=== PATIENT | male | born 1935 | race Caucasian/White ===

== ENCOUNTER 2016-06-04 21:40 | Emergency (ER) | payer MEDICARE, OTHER ==
[2016-06-04 21:46] VITALS: BP 130/60
[2016-06-04] MEDS ORDERED: Levofloxacin 750 MG IVPREMIX(* 750 MG/150 ML BAG IVPB ONE (22:57)
--- NOTE | 2016-06-04 22:57 | RAD ---
INDICATION: Worsening bronchitis. Denies fever. COMPARISON: June 14, 2015 TECHNIQUE: Dual energy PA and routine lateral views of the chest were obtained. REPORT: Airspace consolidation in the RIGHT lung most confluent at the RIGHT upper lobe approximating the minor fissure and at the RIGHT lung base. Additional airspace consolidation at the LEFT lung base. Trace fluid in the RIGHT major and minor fissures. Negative for pneumothorax. Median sternotomy wires. RIGHT ventricular level pacemaker lead. Cardiomegaly. Prominent mildly ill-defined central pulmonary vasculature. IMPRESSION: The constellation of findings is most concerning for RIGHT greater than LEFT pulmonary inflammatory infiltrates as well as pulmonary vascular congestion and interstitial edema. Alternatively if the patient was lying RIGHT lateral decubitus the findings could be entirely attributable to asymmetric pulmonary edema.
[2016-06-04 23:54] LABS: Hematocrit 32 % (42-52); Hemoglobin 10.5 g/dl (14.0-18.0); Mean Corpuscular HGB Conc 33 g/dl (31-36); Mean Corpuscular Hemoglobin 29 pg (27-31); Mean Corpuscular Volume 89 fL (80-94); Mean Platelet Volume 8 um3 (7.4-10.4); Red Cell Distribution Width 15 % (10.5-15); White Blood Count 7.2 10^3/ul (3.5-10.8)
[2016-06-05 00:10] LABS: Albumin 2.6 g/dL (3.2-5.2); BUN/Creatinine Ratio 23.4 (8-20); Calcium 8.2 mg/dL (8.6-10.3); EGFR African American 69.2 (>60); EGFR Non-African American 53.8 (>60); Globulin 3.9 g/dL (2-4); Potassium 4.8 mmol/L (3.5-5.0); Total Bilirubin 0.4 mg/dL (0.2-1.0); Total Protein 6.5 g/dL (6.4-8.9)
[2016-06-05 00:12] LABS: Troponin I 0.01 ng/mL (<0.04)
--- NOTE | 2016-06-05 00:28 | ED ---
Bautista Steen Adam, scribed for Oscar Almazan MD on 06/04/16 at 2222 . Respiratory - HPI Summary HPI Summary: Pt is an 80 year old male presenting with a hacking cough producing yellow sputum. He began experiencing SOB approximately 6 weeks ago which is worse with exertion such as walking up stairs. Since then he has developed the cough as well, so he had blood work done last week. He states that Dr. Clinton was concerned about a high sedimentation rate and Dr. Kerr advised him to come to the ED if his breathing did not improve. Pt's also states that his skin became darker red than usual several days ago and has since turned paler white than usual. Pt denies any fever or chills. PMHx includes ICD, CAD, HTN, mitral valve replacement, BPH, stomach ulcer repair. Pt quit smoking 26 years ago after smoking for 30+ years. - History of Current Complaint Chief Complaint: EDUpperRespComplaint Stated Complaint: UPPER RESPIRATORY COMPLAINT Time Seen by Provider: 06/04/16 22:10 Hx Obtained From: Patient Onset/Duration: Gradual Onset, Lasting Weeks, Still Present Timing: Constant Initial Severity: Moderate Current Severity: Moderate Pain Intensity: 0 Character: Cough (Productive) Sputum Amount: Moderate Sputum Color: Yellow Aggravating Factor(s): Exertion Alleviating Factor(s): Nothing Associated Signs and Symptoms: SOB - Allergy/Home Medications Allergies/Adverse Reactions: Allergies Allergy/AdvReac Type Severity Reaction Status Date / Time No Known Allergies Allergy Verified 07/22/15 11:38 PMH/Surg Hx/FS Hx/Imm Hx Endocrine/Hematology History: Denies: Hx Diabetes, Hx Systemic Lupus Erythematosus Cardiovascular History: Reports: Hx Auto Implanted Cardiovert Defib, Hx Coronary Artery Disease, Hx Hypertension, Hx Pacemaker/ICD, Hx Valvular Heart Disease - mitral valve replacement, Other Cardiovascular Problems/Disorders - mitral regurgitation Denies: Hx Congestive Heart Failure Respiratory History: Reports: Other Respiratory Problems/Disorders - FUSO- BACTERIUM INFECTION-3 YEARS AGO- [place] BY DR. RODRÍGUEZ GI History: Reports: Hx Ulcer, Other GI Disorders - 1974 stomach repair, currently acid reflux History: Reports: Hx Benign Prostatic Hyperplasia, Other Problems/ Disorders - Hx BPH Denies: Hx Dialysis, Hx Renal Disease Musculoskeletal History: Reports: Hx Arthritis, Hx Back Problems, Other Musculoskeletal History - spinal stenosis Denies: Hx Rheumatoid Arthritis Sensory History: Reports: Hx Cataracts - BILATERAL, Hx Contacts or Glasses Denies: Hx Hearing Aid Opthamlomology History: Reports: Hx Cataracts - BILATERAL, Hx Contacts or Glasses Neurological History: Denies: Hx Headaches, Hx Transient Ischemic Attacks (TIA) Psychiatric History: Denies: Hx Panic Disorder - Cancer History Hx Chemotherapy: No - Surgical History Surgery Procedure, Year, and Place: DEFIBRILATOR, MYTRAL VALVE REPAIR, STOMACH ULCER REPAIR, BILAT SHOULDER REPAIR Hx Anesthesia Reactions: No Infectious Disease History: No Infectious Disease History: Denies: Hx Clostridium Difficile, Traveled Outside the [place] in Last 30 Days - Family History Known Family History: Positive: Other - Negative malignant hyperthermia, negative anesthesia reaction - Social History Occupation: Retired Lives: With Family Alcohol Use: Rare 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 Hx Substance Use: No Substance Use Type: Reports: None Substance Use Comment - Amount & Last Used: SINCE 1987 Hx Tobacco Use: Yes Smoking Status (MU): Former Smoker Type: Cigarettes Amount Used/How Often: quit 26 years ago Length of Time of Smoking/Using Tobacco: 30+ years Have You Smoked in the Last Year: No Review of Systems Negative: Fever, Chills Positive: Shortness Of Breath, Cough Skin: Other Positive: Other - Pale All Other Systems Reviewed And Are Negative: Yes Physical Exam Triage Information Reviewed: Yes Vital Signs On Initial Exam: Initial Vitals Temp Pulse Resp BP Pulse Ox 98.9 F 72 18 130/60 91 06/04/16 21:42 06/04/16 21:42 06/04/16 21:42 06/04/16 21:42 06/04/16 21:42 Vital Signs Reviewed: Yes Appearance: Positive: Well-Appearing, No Pain Distress Skin: Positive: Warm, Skin Color Reflects Adequate Perfusion, Dry Head/Face: Positive: Normal Head/Face Inspection Eyes: Positive: Normal ENT: Positive: Normal ENT inspection Neck: Positive: Supple, Nontender Respiratory/Lung Sounds: Positive: Rales - Crackles, right worse than left Cardiovascular: Positive: RRR Abdomen Description: Positive: Nontender, Soft Bowel Sounds: Positive: Present Musculoskeletal: Positive: Normal Neurological: Positive: Normal Psychiatric: Positive: Normal, Affect/Mood Appropriate Diagnostics - Vital Signs Vital Signs Temp Pulse Resp BP Pulse Ox 06/04/16 21:42 98.9 F 72 18 130/60 91 - Laboratory Lab Results: Lab Results 06/04/16 06/04/16 06/04/16 Range/Units 23:30 23:30 23:30 WBC 7.2 (3.5-10.8) 10^3/ul RBC 3.60 L (4.0-5.4) 10^6/ul Hgb 10.5 L (14.0-18.0) g/dl Hct 32 L (42-52) % MCV 89 (80-94) fL MCH 29 (27-31) pg MCHC 33 (31-36) g/dl RDW 15 (10.5-15) % Plt Count 255 (150-450) 10^3/ul MPV 8 (7.4-10.4) um3 Neut % (Auto) 79.2 (38-83) % Lymph % (Auto) 10.6 L (25-47) % [place] % (Auto) 6.6 (1-9) % Eos % (Auto) 2.5 (0-6) % Baso % (Auto) 1.1 (0-2) % Absolute Neuts (auto) 5.7 (1.5-7.7) 10^3/ul Absolute Lymphs (auto) 0.8 L (1.0-4.8) 10^3/ul Absolute Monos (auto) 0.5 (0-0.8) 10^3/ul Absolute Eos (auto) 0.2 (0-0.6) 10^3/ul Absolute Basos (auto) 0.1 (0-0.2) 10^3/ul Absolute Nucleated RBC 0 10^3/ul Nucleated RBC % 0 Sodium 135 (133-145) mmol/L Potassium 4.8 (3.5-5.0) mmol/L Chloride 104 (101-111) mmol/L Carbon Dioxide 26 (22-32) mmol/L Anion Gap 5 (2-11) mmol/L BUN 30 H (6-24) mg/dL Creatinine 1.28 H (0.67-1.17) mg/dL Est GFR ( Amer) 69.2 (>60) Est GFR (Non-Af Amer) 53.8 (>60) BUN/Creatinine Ratio 23.4 H (8-20) Glucose 99 (70-100) mg/dL Lactic Acid 0.8 (0.5-2.0) mmol/L Calcium 8.2 L (8.6-10.3) mg/dL Total Bilirubin 0.40 (0.2-1.0) mg/dL AST 53 H (13-39) U/L ALT 45 (7-52) U/L Alkaline Phosphatase 56 (34-104) U/L Troponin I 0.01 (<0.04) ng/mL B-Natriuretic Peptide ( - 100) pg/mL Total Protein 6.5 (6.4-8.9) g/dL Albumin 2.6 L (3.2-5.2) g/dL Globulin 3.9 (2-4) g/dL Albumin/Globulin Ratio 0.7 L (1-3) 06/04/16 Range/Units 23:30 WBC (3.5-10.8) 10^3/ul RBC (4.0-5.4) 10^6/ul Hgb (14.0-18.0) g/dl Hct (42-52) % MCV (80-94) fL MCH (27-31) pg MCHC (31-36) g/dl RDW (10.5-15) % Plt Count (150-450) 10^3/ul MPV (7.4-10.4) um3 Neut % (Auto) (38-83) % Lymph % (Auto) (25-47) % [place] % (Auto) (1-9) % Eos % (Auto) (0-6) % Baso % (Auto) (0-2) % Absolute Neuts (auto) (1.5-7.7) 10^3/ul Absolute Lymphs (auto) (1.0-4.8) 10^3/ul Absolute Monos (auto) (0-0.8) 10^3/ul Absolute Eos (auto) (0-0.6) 10^3/ul Absolute Basos (auto) (0-0.2) 10^3/ul Absolute Nucleated RBC 10^3/ul Nucleated RBC % Sodium (133-145) mmol/L Potassium (3.5-5.0) mmol/L Chloride (101-111) mmol/L Carbon Dioxide (22-32) mmol/L Anion Gap (2-11) mmol/L BUN (6-24) mg/dL Creatinine (0.67-1.17) mg/dL Est GFR ( Amer) (>60) Est GFR (Non-Af Amer) (>60) BUN/Creatinine Ratio (8-20) Glucose (70-100) mg/dL Lactic Acid (0.5-2.0) mmol/L Calcium (8.6-10.3) mg/dL Total Bilirubin (0.2-1.0) mg/dL AST (13-39) U/L ALT (7-52) U/L Alkaline Phosphatase (34-104) U/L Troponin I (<0.04) ng/mL B-Natriuretic Peptide 116 H ( - 100) pg/mL Total Protein (6.4-8.9) g/dL Albumin (3.2-5.2) g/dL Globulin (2-4) g/dL Albumin/Globulin Ratio (1-3) Result Diagrams: 06/04/16 23:30 06/04/16 23:30 Lab Statement: Any lab studies that have been ordered have been reviewed, and results considered in the medical decision making process. - Radiology CXR Radiology Interpretation Completed By: Radiologist - IMPRESSION: The constellation of findings is most concerning for RIGHT greater than LEFT pulmonary inflammatory infiltrates as well as pulmonary vascular congestion and interstitial edema. Alternatively if the patient was lying RIGHT lateral decubitus the findings could be entirely attributable to asymmetric pulmonary edema. Disposition - Course Course Of Treatment: He presented with subjective SOB and reasonably good vitals. He was found to have an expensive right sided pneumonia and possibly some mild pulm. edema. He wants to try treating this as an outpatient and will return if his breathing worsens. - Diagnoses Provider Diagnoses: Pneumonia Discharge - Discharge Plan Condition: Stable Disposition: HOME Prescriptions: Levofloxacin TAB* [Levaquin TAB*] 750 mg PO DAILY #9 tab Patient Education Materials: Pneumonia (ED) Referrals: Terry Kerr MD [Primary Care Provider] - Additional Instructions: Follow up with Dr. Kerr. The documentation as recorded by the Bautista kamara Adam accurately reflects the service I personally performed and the decisions made by , Oscar Almazan MD.
== END 2016-06-05 00:41 | disposition home or self-care (01) ==
LOC: ED 21:40
DX: J18.9 Pneumonia, unspecified organism (principal); R05 Cough; Z86.79 Personal history of other diseases of the circulatory system; Z87.891 Personal history of nicotine dependence; R06.02 Shortness of breath
CPT/HCPCS: 36415; 71020; 80053; 83605; 83880; 84484; 85025; 87040; 93005; 96365; 99282

== ENCOUNTER 2016-06-07 12:22 | Observation (INO) | payer MEDICARE, OTHER ==
[2016-06-07] MEDS ORDERED: Azithromycin IV(*) 500 MG in NS 0.9% 250 ML* 250 ML IVPB ONE (14:20)
[2016-06-07] MEDS ORDERED: cefTRIAXone(*) 1 GM in NS 0.9% 50 ML* 50 ML IVPB ONE (14:20)
--- NOTE | 2016-06-07 14:22 | ED ---
Nakul Steen Karl, scribed for Peter Gan MD on 06/07/16 at 1343 . Shortness of Breath - HPI Summary HPI Summary: Pt is an 80 y/o male that presents to the ED c/o SOB since 05/26/16. Pt was seen at the ED for the same symptoms 06/04/16 and was dx with PNA then was sent home with Levaquin but he stated his symptoms are not improving. Pt exhibited a productive cough while in the room. Pt is on Warfarin. Pt denied CP and fever. Hx: PNA. - History of Current Complaint Chief Complaint: EDShortnessOfBreath Time Seen by Provider: 06/07/16 12:24 Hx Obtained From: Patient Onset/Duration: Gradual Onset, Lasting Days - 3, Still Present Timing: Constant Current Severity: Mild Alleviating Factors: Nothing Associated Signs & Symptoms: Cough (Productive) - Allergy/Home Medications Allergies/Adverse Reactions: Allergies Allergy/AdvReac Type Severity Reaction Status Date / Time No Known Allergies Allergy Verified 06/07/16 12:29 PMH/Surg Hx/FS Hx/Imm Hx Endocrine/Hematology History: Denies: Hx Diabetes, Hx Systemic Lupus Erythematosus Cardiovascular History: Reports: Hx Auto Implanted Cardiovert Defib, Hx Coronary Artery Disease, Hx Hypertension, Hx Pacemaker/ICD, Hx Valvular Heart Disease - mitral valve replacement, Other Cardiovascular Problems/Disorders - mitral regurgitation Denies: Hx Congestive Heart Failure Respiratory History: Reports: Other Respiratory Problems/Disorders - FUSO- BACTERIUM INFECTION-3 YEARS AGO- [place] BY DR. RODRÍGUEZ GI History: Reports: Hx Ulcer, Other GI Disorders - 1974 stomach repair, currently acid reflux History: Reports: Hx Benign Prostatic Hyperplasia, Other Problems/ Disorders - Hx BPH Denies: Hx Dialysis, Hx Renal Disease Musculoskeletal History: Reports: Hx Arthritis, Hx Back Problems, Other Musculoskeletal History - spinal stenosis Denies: Hx Rheumatoid Arthritis Sensory History: Reports: Hx Cataracts - BILATERAL, Hx Contacts or Glasses Denies: Hx Hearing Aid Opthamlomology History: Reports: Hx Cataracts - BILATERAL, Hx Contacts or Glasses Neurological History: Denies: Hx Headaches, Hx Transient Ischemic Attacks (TIA) Psychiatric History: Denies: Hx Panic Disorder - Cancer History Hx Chemotherapy: No - Surgical History Surgery Procedure, Year, and Place: DEFIBRILATOR, MYTRAL VALVE REPAIR, STOMACH ULCER REPAIR, BILAT SHOULDER REPAIR Hx Anesthesia Reactions: No Infectious Disease History: No Infectious Disease History: Denies: Hx Clostridium Difficile, Traveled Outside the [place] in Last 30 Days - Family History Known Family History: Positive: Other - Negative malignant hyperthermia, negative anesthesia reaction - Social History Alcohol Use: Rare 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 Hx Substance Use: No Substance Use Type: Reports: None Substance Use Comment - Amount & Last Used: SINCE 1987 Hx Tobacco Use: No Smoking Status (MU): Former Smoker Type: Cigarettes Amount Used/How Often: quit 26 years ago Length of Time of Smoking/Using Tobacco: 30+ years Have You Smoked in the Last Year: No Review of Systems Negative: Fever Eyes: Negative ENT: Negative Negative: Chest Pain Positive: Shortness Of Breath, Cough - productive Gastrointestinal: Negative Genitourinary: Negative Musculoskeletal: Negative Skin: Negative Neurological: Negative Psychological: Normal All Other Systems Reviewed And Are Negative: Yes Physical Exam Triage Information Reviewed: Yes Vital Signs On Initial Exam: Initial Vitals Temp Pulse Resp BP Pulse Ox 98.3 F 76 18 128/72 91 06/07/16 12:26 06/07/16 12:26 06/07/16 12:26 06/07/16 12:26 06/07/16 12:26 Vital Signs Reviewed: Yes Appearance: Positive: Well-Appearing, Ill-Appearing - mildly Skin: Positive: Warm, Skin Color Reflects Adequate Perfusion, Dry Head/Face: Positive: Normal Head/Face Inspection Eyes: Positive: EOMI, LYLE ENT: Positive: Normal ENT inspection Neck: Positive: Supple, Nontender Respiratory/Lung Sounds: Positive: Rhonchi - in right lung base Cardiovascular: Positive: Murmur Abdomen Description: Positive: Nontender, Soft Bowel Sounds: Positive: Present Musculoskeletal: Positive: Normal, Strength/ROM Intact. Negative: Edema Left, Edema Right Neurological: Positive: Normal, Sensory/Motor Intact, Alert, Oriented to Person Place, Time Psychiatric: Positive: Affect/Mood Appropriate Diagnostics - Vital Signs Vital Signs Temp Pulse Resp BP Pulse Ox 06/07/16 12:26 98.3 F 76 18 128/72 91 - Laboratory Lab Statement: Any lab studies that have been ordered have been reviewed, and results considered in the medical decision making process. Course/Dx - Course Assessment/Plan: PATIENT HAS FAILED OUTPATIENT ANTIBIOTIC TREATMENT FOR PNEUMONIA. ADMIT HOSPITALIST STABLE. - Diagnoses Provider Diagnoses: Pneumonia Discharge - Discharge Plan Condition: Stable Disposition: ADMITTED TO [facility] Referrals: Terry Kerr MD [Primary Care Provider] - The documentation as recorded by the Nakul kamara Karl accurately reflects the service I personally performed and the decisions made by me, Peter Gan MD.
[2016-06-07] MEDS ORDERED: NS 0.9% 1000 ML* 1,000 ML IV SCH (14:30)
[2016-06-07] MEDS ORDERED: Albuterol 2.5 MG/3 ML NEB.SOL* (0.083%) INH PRN (15:03)
[2016-06-07] MEDS ORDERED: Acetaminophen TAB* 325 MG PO PRN (15:03)
[2016-06-07] MEDS ORDERED: Warfarin TAB(*) 5 MG PO SCH (17:00)
[2016-06-07] MEDS ORDERED: Metoprolol Succinate XL TAB* 50 MG PO SCH (21:00)
--- NOTE | 2016-06-07 22:58 | HP ---
HISTORY AND PHYSICAL: DATE OF ADMISSION: 06/07/16 PRIMARY CARE PROVIDER: Dr. Kerr. ATTENDING PHYSICIAN WHILE IN THE HOSPITAL: Dr. Malissa Forbes* (report being dictated by Mary Stroud NP). CHIEF COMPLAINT: 1. Cough. 2. Dyspnea on exertion. 3. Shortness of breath. HISTORY OF PRESENT ILLNESS: Mr. Al is an 80-year-old male patient. He has a history of atrial fibrillation, hyperlipidemia, cardiomyopathy, sarcoidosis, mitral valve prolapse, status post repair, history of aortic stenosis; in addition to this, anemia and BPH. He comes in today. Since , he has had progressive worsening shortness of breath. He has noticed that he has had decreasing exercise tolerance. He has not been able to do as much exercise. He typically swims every day and does some time cardiac exercises once every day. He noticed that he had to stop swimming and stop doing these exercises because he was just having more dyspnea on exertion. He called his assistant restaurant general manager, says he was worried that he might be having something going on with his heart given his cardiac history and the patient got in touch with Dr. Clinton. Dr. Clinton ordered lab work and found that his CRP was elevated. So, the patient was referred to his primary. The CRP was mildly elevated, but there was no other lab findings according to the patient. He was started on an inhaler last Saturday, which was not helping. He went to the ER Saturday and was started on Levaquin. He has been on Levaquin for 3 days. He followed up with Dr. Kerr today who referred him back to the ER. They repeated a chest x-ray and it was not improving. The patient says he has been coughing at times and had been bringing up some sputum. Says his biggest complaint is dyspnea on exertion. He denies any orthopnea. Denies any increasing weight and denies having any lower edema or increasing swelling. He was evaluated in the ER. There was concern that he had failed outpatient therapy and we were asked to evaluate for admission. PAST MEDICAL HISTORY: Significant for: 1. Atrial fibrillation. 2. Hyperlipidemia. 3. Cardiomyopathy. Last EF from 2015, about a year ago, shows an EF of 55% to 60%. 4. He has a history of sarcoidosis. 5. History of mitral valve disorder, status post repair. 6. He has aortic stenosis. 7. Anemia. 8. BPH. PAST SURGICAL HISTORY: 1. He has had an ICD placement. 2. He has had a gastric ulcer oversewn. 3. He has had a partial colon resection done last year for diverticulitis. 4. Mitral valve repair. HOME MEDICATIONS: According to the list that we were able to obtain include: 1. Amiodarone 100 mg daily. 2. Warfarin 5 mg Saturday, Saturday, Saturday, , Saturday, and Saturday. 3. Warfarin 2.5 mg Saturday. 4. Multivitamin 1 tablet daily. 5. Mag ox 400 mg daily. 6. Diltiazem CD 120 mg daily. 7. Lipitor 20 mg daily. 8. Tylenol 650 mg every 12 hours as needed. 9. Calcium with vitamin D 1 tablet daily. 10. Viagra 50 to 100 mg daily as needed. 11. B12 1000 mcg daily. 12. Fosamax 70 mg weekly. 13. Metoprolol 50 mg p.o. daily. 14. Ergocalciferol 50,000 units p.o. monthly. 15. Advair 1 puff b.i.d. ALLERGIES TO MEDICATIONS: Include no known drug allergies. FAMILY HISTORY: His mother had a history of diabetes type 1. Father had a history of a heart attack. SOCIAL HISTORY: He is a former smoker, former alcoholic. He does not drink or smoke anymore. He lives with his . Surrogate decision maker is his . REVIEW OF SYSTEMS: There is no documented fever. He denied any significant weight change. There was no double vision. There was no ear discharge. He denies having any rhinorrhea. No sore throat. No thyroid enlargement. Denies any chest pain. There is dyspnea on exertion. No orthopnea. No nocturnal dyspnea. There is no abdominal pain. No nausea. No vomiting. No dysuria. No frequency. No loss of consciousness. No pruritus and no skin ulcerations. Review of 14 systems completed, all others negative. PHYSICAL EXAMINATION GENERAL: At this time, Mr. Al is an 80-year-old male patient. He is sitting on the ER stretcher. He does not appear to be in any acute distress. He is awake and he is alert. VITAL SIGNS: Blood pressure 128/71 with a pulse of 76, respirations 18, O2 sat now is noted to be 96% on 2 L, temperature 98.3. HEENT: Head: Atraumatic, normocephalic. Eyes: EOMs intact. Sclerae anicteric and not pale. Throat appears to be moist. No oropharyngeal erythema. NECK: Supple. LUNGS: He did have crackles in the right middle lobe and right lower lobe with equal diaphragmatic expansion. HEART: Sounds S1, S2. Regular rate and rhythm. No rubs or gallops. He did have a murmur. It was a grade 2 to 3 in the aortic listening area. ABDOMEN: Soft, flat, nontender. Bowel sounds present. EXTREMITIES: Pulses 2+ throughout. He is able to move all 4 extremities with 5 /5 strength. NEUROLOGIC: The patient is awake. He is alert and oriented x3. No gross focal deficits. SKIN: Intact. LABORATORY DATA AND DIAGNOSTIC STUDIES: Labs show lactic acid of 0.7. Flu swab was negative. He had labs just done this morning and showed a WBC of 6.8, RBC of 3.87, hemoglobin 11.2, hematocrit 34, platelet count 323. His ESR was 113 on 05/30/16. INR was 1.69, that was last year, we are repeating that now. Sodium was 131, potassium 4.5, chloride 109, bicarb 25, BUN 23, creatinine of 1.17, glucose 93. AST 66, ALT 56, CRP of 77. BNP was 116 three days ago and albumin 2.8. He had a chest x-ray obtained today and under my review, I do appreciate an infiltrate note to the right upper lobe and right lower lobe. This appears to be a small infiltrate in the left lower lobe as well. Radiology read it as persistent bilateral right greater than left multifocal consolidation. Recommend continued followup until resolution to exclude underlying pulmonary pathology. He had an EKG today as well, which showed a normal sinus rhythm with PVC. No ST elevations or T- wave inversions, rate of 71. Reviewed to the previous EKG, it is stable. Last echo showed an EF of 55% to 60%. Old medical records were reviewed. ASSESSMENT AND PLAN: Mr. Al is an 80-year-old male patient coming into the ER today with complaints of worsening cough, progressive dyspnea on exertion , on evaluation in the outpatient setting found to have pneumonia that is not responding to Levaquin. He will be admitted under observation status for: 1. Pneumonia: At this point, I will go ahead and switch him over to azithromycin and Rocephin. We will get a Legionella and strep antigen as well. We will go ahead and put him on flutter valve incentive spirometer around the clock for aggressive pulmonary toileting. We will try to get a sputum culture if possible and we will continue to monitor. 2. Sarcoidosis: I did touch base with the Pulmonology. At this point, they recommend an outpatient CT scan after this care of pneumonia and follow up with Pulmonology in the outpatient setting. I do not think there is an acute Pulmonology need for him at this point. We will continue to follow. 3. Hyperlipidemia: Continue statin. 4. History of cardiomyopathy: Continue meds as prescribed. 5. History of mitral valve disorder and aortic stenosis: He can follow with Dr. Clinton. 6. Anemia: H and H stable. We will follow. 7. Benign prostatic hypertrophy: Continue meds as prescribed. 8. History of atrial fibrillation: We will continue his Coumadin. In addition to this, we will continue his medications. His rate is in sinus rhythm now. Continue the amiodarone, metoprolol, and diltiazem. 9. DVT prophylaxis: Awaiting his INR for today, but for the time being, he will be placed on SCDs. 10. Code status: Full code. 11. Fluids, electrolytes, and nutrition: He can have a heart healthy diet. TIME SPENT: Time spent on the admission 60 minutes, greater than half the time was spent [id number] with the patient obtaining my history and physical, other half the time spent going over the plan of care with the patient and implementing plan of care. I did discuss the plan of care with my attending, Dr. Forbes; she is in agreement. MARY STROUD NP ADDENDUM TO HISTORY AND PHYSICAL: DATE OF ADMISSION: 06/07/16 ADDENDUM: Mr. Al is an 80-year-old male who was diagnosed during last ER visit 3 days ago with pneumonia. He has been treated with Levaquin. Despite that, he still feels poorly. He is going to be admitted with a diagnosis of pneumonia. His INR is elevated at 7.77, which is also going to be addressed as detailed further in history and physical dictated by Mary Stroud NP, on 06/07 with which I agree. Malissa Forbes MD CC: Dr. Kerr* [id number]/[facility] #: [id number]/[facility] #: [id number] [facility]
--- NOTE | 2016-06-07 23:32 | HP ---
HISTORY AND PHYSICAL: DATE OF ADMISSION: 06/07/16 ADDENDUM: Mr. Al is an 80-year-old male who was diagnosed during last ER visit 3 days ago with pneumonia. He has been treated with Levaquin. Despite that, he still feels poorly. He is going t o be admitted with a diagnosis of pneumonia. His INR is elevated at 7.77, which is also going to be addressed as detailed further in history and physical dictated by Kulwant Stroud NP, on 06/07/16 wit h which I agree. [id number]/[facility] #: [id number]
[2016-06-08 06:37] LABS: Hematocrit 29 % (42-52); Hemoglobin 9.4 g/dl (14.0-18.0); Mean Corpuscular HGB Conc 33 g/dl (31-36); Mean Corpuscular Hemoglobin 29 pg (27-31); Mean Corpuscular Volume 88 fL (80-94); Mean Platelet Volume 8 um3 (7.4-10.4); Red Blood Count 3.27 10^6/ul (4.0-5.4); Red Cell Distribution Width 15 % (10.5-15); White Blood Count 6.6 10^3/ul (3.5-10.8)
[2016-06-08 06:55] LABS: BUN/Creatinine Ratio 17.3 (8-20); Calcium 7.6 mg/dL (8.6-10.3); EGFR African American 69.8 (>60); EGFR Non-African American 54.3 (>60); Potassium 4.1 mmol/L (3.5-5.0)
[2016-06-08] MEDS: Mometasone/Formoter 200/5 MDI INH SCH ×2 (07:30→09:41)
[2016-06-08] MEDS ORDERED: Diltiazem CD CAP* 120 MG PO SCH (09:00)
[2016-06-08] MEDS ORDERED: Magnesium Oxide TAB* 400 MG PO SCH (09:00)
[2016-06-08] MEDS ORDERED: Atorvastatin* 20 MG TAB PO SCH (09:00)
[2016-06-08] MEDS ORDERED: Multivitamins/Minerals TAB PO SCH (09:00)
--- NOTE | 2016-06-08 09:25 | PN ---
Subjective Date of Service: 06/08/16 Interval History: Patient seen and examined at bedside. Pt states that he is feeling improved and has been up and ambulating a lot in the halls. Denies fever, chills, chest discomfort, N/V/D. Pt reports that his shortness of breath is improving with ambulation, and that he is able to maintain is O2 sats in the low 90's while walking. Family History: Unchanged from Admission Social History: Unchanged from Admission Past Medical History: Unchanged from Admission Objective Active Medications: Acetaminophen (Tylenol Tab*) 650 mg PO Q4H PRN Reason: FEVER/PAIN Albuterol (Ventolin 2.5 Mg/3 Ml Neb.Sabrina*) 2.5 mg INH Q2H PRN Reason: SOB/ WHEEZING Atorvastatin Calcium (Lipitor*) 20 mg PO DAILY RUIZ Diltiazem HCl (Cardizem Cd Cap*) 120 mg PO DAILY RUIZ Ceftriaxone Sodium 1,000 mg/ (Sodium Chloride) 50 mls @ 200 mls/hr IVPB Q24H RUIZ Azithromycin 500 mg/ Sodium (Chloride) 250 mls @ 250 mls/hr IVPB Q24H RUIZ Magnesium Oxide (Magox 400 Tab*) 400 mg PO DAILY RUIZ Metoprolol Succinate (Toprol Xl Tab*) 50 mg PO BEDTIME RUIZ Mometasone Furoate/Formoterol Fumar (Dulera 200/5 Mdi*) 2 puff INH BID RUIZ Multivitamins/Minerals (Theragran/Minerals Tab*) 1 tab PO DAILY RUIZ Vital Signs 06/07/16 06/07/16 06/07/16 14:00 14:30 15:00 Temperature Pulse Rate 67 68 70 Respiratory 24 20 23 Rate Blood Pressure 126/81 126/84 134/71 (mmHg) O2 Sat by Pulse 89 93 92 Oximetry 06/07/16 06/07/16 06/07/16 15:30 16:23 16:30 Temperature 98.0 F Pulse Rate 66 72 Respiratory 20 18 Rate Blood Pressure 131/81 117/58 (mmHg) O2 Sat by Pulse 93 96 96 Oximetry 06/07/16 06/07/16 06/07/16 18:23 18:35 20:12 Temperature 97.7 F Pulse Rate 69 Respiratory 18 18 20 Rate Blood Pressure 117/58 (mmHg) O2 Sat by Pulse 97 Oximetry 06/07/16 06/08/16 06/08/16 20:18 00:00 00:09 Temperature 97.4 F 98.2 F Pulse Rate 72 71 Respiratory 16 16 Rate Blood Pressure 125/61 101/59 (mmHg) O2 Sat by Pulse 91 97 89 Oximetry 06/08/16 06/08/16 06/08/16 03:43 04:10 07:29 Temperature 98.2 F Pulse Rate 82 74 Respiratory 16 16 Rate Blood Pressure 90/37 108/54 89/41 (mmHg) O2 Sat by Pulse 91 91 Oximetry Oxygen Devices in Use Now: Nasal Cannula - 2 L Appearance: NAD, sitting up on the side of the bed. Eyes: No Scleral Icterus, PERRLA Ears/Nose/Mouth/Throat: NL Teeth, Lips, Gums, Mucous Membranes Moist Neck: NL Appearance and Movements; NL JVP, Trachea Midline Respiratory: Symmetrical Chest Expansion and Respiratory Effort, - - Lung sounds with crackles in the right base. Cardiovascular: NL Sounds; No Murmurs; No JVD, - - Heart rate irregular Abdominal: NL Sounds; No Tenderness; No Distention Extremities: No Edema Skin: No Rash or Ulcers Neurological: Alert and Oriented x 3, NL Muscle Strength and Tone Lines/Tubes/Other Access: Clean, Dry and Intact Peripheral IV - site benign. Nutrition: Taking PO's Result Diagrams: 06/08/16 06:06 06/08/16 06:06 Microbiology and Other Data: Microbiology 06/07/16 14:35 Influenza Types A,B Antigen ([facility]) - Final Nasopharyngeal Specimen received for Influenza A/B Molecular testing Assess/Plan/Problems-Billing Assessment: Mr. Al is an 80 yo male with PMH significant for Afib, HLD, cardiomyopathy , , sarcodosis, MV repair, anemia who presented to the emergency room with complaints of worsening cough, progressive dyspnea on exertion who was diagnosed with PNA and started on levaquin outpatient. Pt was not improving on outpatient status and was admitted for PNA. - Patient Problems (1) Pneumonia Code(s): J18.9 - PNEUMONIA, UNSPECIFIED ORGANISM SNOMED Code(s): 061933858 Comment: Pt not improving on outpatient treatment. Placed on azithromycin and rocephin. Urine for legionella and s. pneumoniae pending. Continue flutter valve, IS, pulmonary toilet. Sputum culture pending. O2 sat 89-91 % on room air. (2) MILDRED (acute kidney injury) Code(s): N17.9 - ACUTE KIDNEY FAILURE, UNSPECIFIED SNOMED Code(s): 63191006 Comment: Creatinine is elevated, suspect this is related to Pt having diarrhea. Encouraged to drink fluids and recommend monitoring labs. (3) Supratherapeutic INR Code(s): R79.1 - ABNORMAL COAGULATION PROFILE SNOMED Code(s): 612045154 Comment: INR 7.77 yesterday and 6.18 today. Pt states that he is having an intermittent bloody nose. Will recheck INR in the AM. (4) Anemia Code(s): D64.9 - ANEMIA, UNSPECIFIED SNOMED Code(s): 105302294 Comment: HH down today. Pt has a combination of Vit B12 deficiency and anemia of chronic disease. Continue Vit B12 supplementation. Will check stool guaiac. (5) Sarcoidosis Code(s): D86.9 - SARCOIDOSIS, UNSPECIFIED SNOMED Code(s): 12024238 Comment: Pt should have an outpatient CT scan after his treatment for PNA is completed and then follow-up with Pulmonology outpatient. (6) Cardiomyopathy Code(s): I42.9 - CARDIOMYOPATHY, UNSPECIFIED SNOMED Code(s): 31947506 Comment: Continue home medications. (7) Atrial fibrillation Code(s): I48.91 - UNSPECIFIED ATRIAL FIBRILLATION SNOMED Code(s): 15813770 Comment: Rate controlled. Continue amiodarone, metoprolol and diltiazem with hold parameters. Pt's INR is supratherapeutic at this time. (8) Dyslipidemia Code(s): E78.5 - HYPERLIPIDEMIA, UNSPECIFIED SNOMED Code(s): 506712250 Comment: Continue Atorvastatin (9) DVT prophylaxis Code(s): MVZ9090 - SNOMED Code(s): 444032027 Comment: No chemical DVT prophylaxsis at this time in the setting of supratherapeutic INR. (10) Full code status Code(s): Z78.9 - OTHER SPECIFIED HEALTH STATUS SNOMED Code(s): 191525877 Status and Disposition: OBV. Discharge to home when medically stable.
[2016-06-08] MEDS ORDERED: cefTRIAXone VIAL(*) 1,000 MG in NS 0.9% 50 ML* 50 ML IVPB SCH (16:00)
[2016-06-08 16:59] VITALS: BP 127/59
[2016-06-08] MEDS ORDERED: Azithromycin IV(*) 500 MG in NS 0.9% 250 ML* 250 ML IVPB SCH (17:00)
[2016-06-09] MEDS ORDERED: Cyanocobalamin TAB* 500 MCG PO SCH (09:00)
--- NOTE | 2016-06-09 16:46 | DS ---
DISCHARGE SUMMARY: DATE OF ADMISSION: 06/07/16 DATE OF DISCHARGE: 06/08/16 ATTENDING PHYSICIAN: Dr. Tessa Colunga * (dictated by Yoselin Patel NP). PRIMARY CARE PROVIDER: Dr. Terry Kerr. PRIMARY DIAGNOSES: 1. Community-acquired pneumonia. 2. Supratherapeutic INR. 3. Acute kidney injury. SECONDARY DIAGNOSES: 1. Sarcoidosis. 2. Hyperlipidemia. 3. History of cardiomyopathy. 4. History of mitral valve disorder and aortic stenosis. 5. Anemia. 6. History of atrial fibrillation. STUDIES WHILE IN THE HOSPITAL: A chest x-ray from 06/07/16. Radiologist's impression: Persistent bilateral right greater than left multifocal consolidation. Recommend continued followup until resolution to exclude underlying pulmonary pathology. DISCHARGE MEDICATIONS: New home medications: Vantin 200 mg oral twice daily for 2 days. Continued home medications: 1. Acetaminophen 650 mg oral twice daily p.r.n. for pain. 2. Multivitamin 1 tablet oral daily. 3. Magnesium oxide 400 mg oral daily. 4. Diltiazem CR 120 mg oral daily. 5. Atorvastatin 20 mg oral daily. 6. Calcium carbonate/vitamin D 1 tablet oral daily. 7. Viagra 50 to 100 mg oral daily as needed for erectile dysfunction. 8. Vitamin B12 1000 mcg oral daily. 9. Fosamax 70 mg oral weekly. 10. Metoprolol succinate 50 mg oral daily. 11. Eye vitamins 1 tablet oral twice daily. 12. Ergocalciferol 50,000 units oral monthly. 13. Advair Diskus 250/50 one puff inhalation twice daily. 14. Amiodarone 100 mg oral daily. Continued home medications: Warfarin, being held at discharge. HISTORY OF PRESENT ILLNESS/HOSPITAL COURSE: Mr. Al is an 80-year-old male with a past medical history significant atrial fibrillation; hyperlipidemia; cardiomyopathy; sarcoidosis, diagnosed approximately 4 years ago; mitral valve prolapse, status post repair; history of aortic stenosis; anemia; BPH, who presented to the emergency room with complaints of worsening shortness of breath. The patient had noticed decreasing exercise tolerance. The patient reports swimming daily and often does cardiovascular exercises daily. The patient noticed that he had to stop swimming and stop his exercises due to dyspnea on exertion. The patient called his lab assistant for concern that this may be his heart and the patient was able to get in touch with Dr. Clinton. Dr. Clinton ordered lab work and found that the patient had an elevated CRP. The patient was referred to his primary care doctor. The patient was started on an inhaler last Saturday, which was not helping. He went to the emergency room on Saturday at which time he was diagnosed with pneumonia and was started on Levaquin. The patient received a dose of IV Levaquin in the emergency room and took 2 days of oral Levaquin, and had followup with Dr. Kerr, who referred the patient to the emergency room. The patient had a repeat chest x-ray showing no improvement in his pneumonia. The hospitalists were asked to evaluate the patient for admission for failure of outpatient therapy. While in the hospital, the patient was feeling improved after being started on azithromycin and ceftriaxone. He had legionella and Strep pneumoniae antigens collected and sent. He was placed on a flutter valve and given aggressive pulmonary toileting. The patient was feeling better. He was able to ambulate with oxygen levels in the high 80s to low 90s. The patient reported being able to walk 3 miles an hour around the unit multiple times. He was afebrile and did not have an elevated white count. It is to note also that the patient was found to have an elevated INR of 7.77 on admission. His repeat INR this morning was 6.18 without any intervention. The patient denied any significant bleeding except for an occasional intermittent bloody nose that quickly stopped bleeding. The patient's vitals have been stable. The patient was also found to have an acute kidney injury. The patient's creatinine was 1.27 on the day of discharge up from 1.17 on the day of admission. The patient was encouraged to hydrate and follow up with labs with his primary care provider. Mr. Al is stable for discharge to home today. Vital signs are as follows: Temperature 97.3, heart rate 69, respiratory rate 16, O2 sat 91% on room air, and blood pressure 127/59. DISCHARGE PLAN: Mr. Al will be discharged to home. Activity as tolerated. As far as the patient's pneumonia, he should be continued on two more days of Vantin and this will complete a 7-day course of treatment. Once the patient has completed treatment, it is recommended that the patient follow up for his sarcoidosis with an outpatient CT scan and follow up with Dr. Moore with Pulmonology. As far as the patient's acute kidney injury, he was encouraged to stay hydrated and recommend following his labs outpatient and avoiding nephrotoxic medications. As far as the patient's supratherapeutic INR, the patient's INR is decreasing without intervention such as vitamin K. I suspect the patient's elevated INR is related to his recent Levaquin use. The patient has been asked to follow up with his primary care doctor tomorrow for an INR. The patient should hold his Coumadin until his INR is back to a normal level. The patient has an appointment for an INR on June 09, at 10:[address] Kerr' s office. The patient has a followup appointment with Dr. Kerr on June 12, at 7:20 p.m. The patient has been asked to call Dr. Moore's office to set up a followup appointment. The patient has been asked to return to the emergency room for worsening shortness of breath or chest discomfort. This is a summarized report of a complex medical history and hospital stay. For further details, please see the entire medical record. TIME SPENT: Time for this discharge was 50 minutes, and 25 minutes was spent face- to-face with the patient and discussing discharge plans and instructions. CONDITION ON DISCHARGE: Stable. Reviewed by TETE BLACKBURN 06/15/16 1442 CC: Dr. Terry Kerr * [id number]/[facility] #: [id number] MTDD
[2016-06-10] MEDS ORDERED: Warfarin TAB(*) 2.5 MG PO SCH (17:00)
--- NOTE | 2016-08-30 00:59 | ED ---
INakul Karl, scribed for Peter Gan MD on 06/07/16 at 1505 . Progress - Progress Note Progress Note: EK:29 ectopic atrial rhythm at 71 bpm PVC's Course/Dx - Diagnoses Provider Diagnoses: Pneumonia The documentation as recorded by the scribeNakul Karl accurately reflects the service I personally performed and the decisions made by , Peter Gan MD.
== END 2016-06-08 18:30 | disposition home or self-care (01) ==
LOC: ED 12:22 → MED 13:53 → MEDTELE 13:53 → INTOOBSV 13:53
PROVIDERS: ADMIT Internal Medicine; ATTEND Hospitalist
DX: J18.9 Pneumonia, unspecified organism (principal); N17.9 Acute kidney failure, unspecified; R79.1 Abnormal coagulation profile; R06.02 Shortness of breath; D86.9 Sarcoidosis, unspecified; E78.5 Hyperlipidemia, unspecified; I42.9 Cardiomyopathy, unspecified; I48.91 Unspecified atrial fibrillation; D64.9 Anemia, unspecified; N40.0 Benign prostatic hyperplasia without lower urinary tract symptoms; R94.31 Abnormal electrocardiogram [ECG] [EKG]; Z79.01 Long term (current) use of anticoagulants; Z79.899 Other long term (current) drug therapy; I05.9 Rheumatic mitral valve disease, unspecified; Z87.891 Personal history of nicotine dependence
CPT/HCPCS: 36415; 71020; 80048; 80053; 83605; 83880; 85025; 85610; 85730; 86140; 87040; 87502; 87899; 93005; 94640; 94664; 94760; 96365; 96366; 96367; 99285; A9270-GY; G0378; J0456; J0696

== ENCOUNTER 2016-06-13 12:59 | Inpatient (IN) | payer MEDICARE, OTHER ==
[2016-06-13 16:16] LABS: Chloride 101 mmol/L (101-111); Sodium 133 mmol/L (133-145)
[2016-06-13 16:17] LABS: ALT 30 U/L (7-52); Albumin 2.7 g/dL (3.2-5.2); Alkaline Phosphatase 65 U/L (34-104); BUN/Creatinine Ratio 15.5 (8-20); Blood Urea Nitrogen 15 mg/dL (6-24); CO2 Carbon Dioxide 29 mmol/L (22-32); Calcium 8.4 mg/dL (8.6-10.3); EGFR African American 95.3 (>60); EGFR Non-African American 74.1 (>60); Globulin 3.9 g/dL (2-4); Glucose 86 mg/dL (70-100); Total Protein 6.6 g/dL (6.4-8.9); Troponin I 0.01 ng/mL (<0.04)
--- NOTE | 2016-06-13 16:17 | RAD ---
Indication: Infiltrate, dyspnea on exertion. CT of the chest was performed without IV contrast. Coronal and sagittal reconstructed images were obtained. Comparison is made with previous exam dated June 09, 2012. Consolidation is noted in the right upper lobe, superior segment of the right lower lobe, inferior right lower lobe in the periphery of the right middle lobe. Airspace disease and consolidation in the left lower lobe is present. There is cardiomegaly noted. Findings are consistent with pneumonia. There is a precarinal lymph node measuring up to 2.2 cm. This lymph node was present on prior exam of June 09, 2012 although appears to be larger. The heart is enlarged with no evidence of pericardial effusion. The visualized abdominal organs demonstrate patient to be status post cholecystectomy. No adrenal lesions are noted. IMPRESSION: BILATERAL AIRSPACE DISEASE AND CONSOLIDATION PREDOMINANTLY IN THE RIGHT UPPER LOBE AND RIGHT LOWER LOBE HOWEVER SMALL AREAS OF CONSOLIDATION ARE NOTED IN THE RIGHT MIDDLE LOBE AND LEFT LOWER LOBE POSTERIORLY. THIS MAY REPRESENT PNEUMONIA. FURTHER FOLLOW-UP IS SUGGESTED. BRONCHOSCOPY SHOULD BE CONSIDERED. ENLARGED PRECARINAL NODE MEASURING UP TO 2.2 CM. THIS IS LARGER THAN WAS PRESENT ON PREVIOUS EXAM OF JUNE 09, 2012.
[2016-06-13 16:45] LABS: Hematocrit 32 % (42-52); Hemoglobin 10.6 g/dl (14.0-18.0); Mean Corpuscular HGB Conc 33 g/dl (31-36); Mean Corpuscular Hemoglobin 29 pg (27-31); Mean Corpuscular Volume 87 fL (80-94); Mean Platelet Volume 8 um3 (7.4-10.4); Red Blood Count 3.69 10^6/ul (4.0-5.4); Red Cell Distribution Width 15 % (10.5-15)
[2016-06-13] MEDS ORDERED: Warfarin TAB(*) 5 MG PO SCH (17:00)
[2016-06-13 17:28] LABS: C Reactive Protein 41.83 mg/L (< 5.00)
[2016-06-13] MEDS ORDERED: Vancomycin per Pharmacy* NOTE FOLLOW UP PRN (17:31)
[2016-06-13] MEDS ORDERED: Vancomycin(*) 1,000 MG in NS 0.9% 250 ML* 250 ML IVPB ONE (19:30)
[2016-06-13] MEDS: Azithromycin IV(*) 500 MG in NS 0.9% 250 ML* 250 ML IVPB SCH (20:39)
[2016-06-13] MEDS: Atorvastatin* 20 MG TAB PO SCH (20:40)
[2016-06-13] MEDS: Cyanocobalamin TAB* 500 MCG PO SCH (20:40)
[2016-06-13] MEDS: Diltiazem CD CAP* 120 MG PO SCH (20:44)
--- NOTE | 2016-06-13 21:08 | HP ---
HOSPITAL MEDICINE HISTORY AND PHYSICAL: DATE OF ADMISSION: 06/13/16 PRIMARY CARE PHYSICIAN: Dr. Kerr. ANGLE FURNACEMAN: Dr. Clinton. ATTENDING PHYSICIAN: Dr. Oswald Quintanilla * (dictation provided by Manisha Walker NP). CHIEF COMPLAINT: Dyspnea on exertion. HISTORY OF PRESENT ILLNESS: Mr. Al is an 80-year-old male with a past medical history of mitral valve repair and ventricular tachycardia, status post defibrillator placement who presents to the hospital with persistent dyspnea on exertion. Mr. Al states that he began feeling unwell on when he had noticed worsening dyspnea on exertion doing stairs. Typically, Mr. Al is very active and participates in CrossFit 3 times a week as well as swimming. This shortness of breath was quite unexpected for him. He went to see Dr. Kerr's office on 05/30/16 or 05/31/16, at which time he was diagnosed with bronchitis and started on Advair. The patient states he continued to feel unwell, and on 06/04/16, he came to our emergency room for evaluation and had diagnosis of pneumonia based on chest x-ray finding of right greater than left pulmonary inflammatory infiltrates. The patient was discharged from the emergency room on . On 06/05/16, he followed up with Dr. Clinton's PA and it was felt that the patient's dyspnea on exertion was not cardiac in nature and was likely related to his pneumonia. The patient continued to feel unwell and on 06/07/16 came to the emergency room again for evaluation, at which time he was admitted to the hospital out of concern for persistent shortness of breath and pneumonia. The patient was very adamant to be discharged and left the following day to complete a course of Vantin. The patient states he completed the course of Vantin and initially felt a little bit better, but over the past couple of days, he has been feeling worse again. He saw Dr. Kerr last night and had labs drawn, which showed no leukocytosis or significant finding, but based on his persistent symptoms, it was recommended that he come to the emergency room for evaluation. I will note in addition to this, Mr. Al describes an episode in 2011 in which he had a gram-negative pneumonia that was initially found through a chest x-ray, which showed right upper lobe pleural-based mass. This mass had been discovered during evaluation for a separate procedure on this patient's shoulder. The mass had initially been thought to be a carcinoma, but biopsy revealed that it was inflammatory. The patient was treated by Dr. Xiong for this with intravenous antibiotics. In the emergency room, Mr. Al had a repeat chest x-ray which showed persistent infiltrate. He went on for a chest CT which showed the following: "Bilateral air space disease and consolidation predominantly in the right upper lobe and right lower lobe; however, smaller areas of consolidation are noted in the right middle lobe and left lower lobe posteriorly. This may represent pneumonia. Further followup is suggested. Bronchoscopy should be considered." The patient continues to have no leukocytosis. He has no fever. His vitals are stable. Based on Mr. Al's presentation with concern for persistent pneumonia and significant dyspnea on exertion, Hospital Medicine was called regarding admission. PAST MEDICAL HISTORY: 1. History of pneumonia, atypical, treated by Dr. Xiong in 2011. 2. Mitral valve repair. 3. V-tach with defibrillator placement. 4. Aortic stenosis. 5. Hypertension. 6. Sarcoidosis. 7. AFib. 8. Hypertension. MEDICATIONS: 1. Alendronate 70 mg p.o. weekly. 2. Calcium citrate 640 mg p.o. daily. 3. Ergocalciferol 50,000 units p.o. monthly. 4. Glucosamine 1 cap p.o. daily. 5. Magnesium oxide 400 mg p.o. daily. 6. Multiple vitamin with mineral 1 tab p.o. b.i.d. 7. Naproxen 220 mg p.r.n. 8. Sildenafil 50 mg p.o. daily p.r.n. 9. Tylenol 650 mg p.o. q.4 hours p.r.n. 10. Amiodarone 100 mg p.o. daily. 11. Atorvastatin 20 mg at bedtime. 12. Cyanocobalamin 500 mcg p.o. b.i.d. 13. Diltiazem XT 120 mg p.o. b.i.d. 14. Metoprolol succinate 50 mg p.o. daily. 15. Multivitamin with mineral 1 tab p.o. daily. 16. Warfarin 2.5 mg on Saturday and 5 mg every other day. 17. Tramadol 50 mg p.o. q.6 hours p.r.n. ALLERGIES: No known drug allergies. FAMILY HISTORY: Reviewed and noncontributory. SOCIAL HISTORY: No report of alcohol, tobacco, or drug use. The patient is typically very active, was currently having very limited exercise tolerance. He states his is his healthcare proxy. REVIEW OF SYSTEMS: A 14-point review of systems was completed with Mr. Al and all those not mentioned above were negative. PHYSICAL EXAMINATION GENERAL: Mr. Al is lying in the bed. He is in no acute distress. VITAL SIGNS: Temperature 98.8, heart rate 75, respiratory rate 22, O2 saturation 93% on room air, blood pressure 139/64. LUNGS: The patient has significant bilateral rhonchi and inspiratory crackles more prominently on the right than the left. No accessory muscle use. HEART: S1, S2. No murmur, rub, or gallop and regular. ABDOMEN: Soft, nontender with bowel sounds positive x4. EXTREMITIES: No cyanosis or edema. NEUROLOGIC: He is alert and oriented x3. He moves all extremities equally. There is no facial asymmetry or focal weakness. Extraocular movements are intact. SKIN: Intact. LABORATORY DATA AND DIAGNOSTIC STUDIES: WBC 8.0, hemoglobin 10.6, hematocrit 32, platelet count 350, INR 1.48. Sodium 133, potassium 4.2, chloride 101, serum bicarbonate 29, BUN 15, creatinine 0.97, glucose 86, lactic acid 0.9. C- reactive protein 41.83. CT of the chest as read above. ASSESSMENT: Mr. Al is an 80-year-old male who presents today to the hospital with persistent infiltrates and concern for pneumonia despite treatment with antibiotics and significant dyspnea on exertion. Our plans are for inpatient admission to the hospital. His expected length of stay will be greater than 2 days. Our recommendations per plan is as follows: 1. Persistent infiltrative changes: Concern is that this represents pneumonia , although it certainly is atypical in nature. The patient has no leukocytosis , no fever, no significant cough, no arthralgias or myalgias. His symptoms are primarily of dyspnea on exertion. Our plans are to consult Dr. Xiong who cared for the patient during his last bout with atypical pneumonia in 2011. Also, would like to consider consulting Dr. Moore tomorrow for bronchoscopy. She was not called [facility] as it was after-hours for her office. In the meantime, I plan to treat broadly with antibiotics of vanco, Zosyn, and azithromycin. A urine strep and Legionella antigen have been sent. Blood cultures will be sent. 2. History of atrial fibrillation: Continue amiodarone, diltiazem, and metoprolol. 3. Hypertension: Continue diltiazem and metoprolol. 4. Atrial fibrillation: Plan to continue warfarin. INR is subtherapeutic at this point, but I anticipate it to rise based on his use of antibiotics and plan to monitor daily. 5. Hyperlipidemia: Continue atorvastatin. 6. Code status is a full code. 7. Disposition to medical floor. TIME SPENT: Approximately 60 minutes were spent on admission of this patient, more than half the time was spent with him at the bedside reviewing the events leading up to this hospitalization, performing the physical examination, and reviewing the plan of care. MANISHA WALKER NP CC: Dr. Kerr; Dr. Clinton * [id number]/[facility] #: [id number] [facility]
[2016-06-13] MEDS: Piperac/Tazob 3.375 gm in NS* 3.375 GM/100 ML BAG IVPB SCH (23:31)
[2016-06-14] MEDS: Piperac/Tazob 3.375 gm in NS* 3.375 GM/100 ML BAG IVPB SCH ×2 (03:02→10:05)
[2016-06-14] MEDS: Vancomycin(*) 750 MG in NS 0.9% 250 ML* 250 ML IVPB SCH ×3 (03:48→20:11)
[2016-06-14 04:35] LABS: BUN/Creatinine Ratio 15.3 (8-20); Calcium 8.3 mg/dL (8.6-10.3); EGFR African American 81.6 (>60); EGFR Non-African American 63.4 (>60); Potassium 4.4 mmol/L (3.5-5.0)
[2016-06-14 04:36] LABS: Hematocrit 31 % (42-52); Hemoglobin 9.9 g/dl (14.0-18.0); Mean Corpuscular HGB Conc 33 g/dl (31-36); Mean Corpuscular Hemoglobin 28 pg (27-31); Mean Corpuscular Volume 87 fL (80-94); Mean Platelet Volume 8 um3 (7.4-10.4); Red Blood Count 3.51 10^6/ul (4.0-5.4); Red Cell Distribution Width 16 % (10.5-15); White Blood Count 8.5 10^3/ul (3.5-10.8)
[2016-06-14] MEDS: Multivitamins/Minerals TAB PO SCH (09:04)
[2016-06-14] MEDS: Metoprolol Succinate XL TAB* 50 MG PO SCH (09:04)
[2016-06-14] MEDS: Amiodarone TAB* 200 MG PO SCH (09:04)
[2016-06-14] MEDS: Cyanocobalamin TAB* 500 MCG PO SCH ×2 (09:05→20:26)
[2016-06-14] MEDS: Diltiazem CD CAP* 120 MG PO SCH ×2 (09:05→20:26)
--- NOTE | 2016-06-14 14:08 | CONS ---
CONSULTATION REPORT: DATE OF CONSULT: 06/14/16 REQUESTING PROVIDER: ROBBIE Gregory CONSULTING SERVICE: Infectious Disease. REASON FOR CONSULT: Dyspnea and fatigue. IMPRESSION: 1. Subacute increasing dyspnea on exertion and then more acutely cough, sputum production, and dyspnea. A chest x-ray, June 04, showed right-sided pulmonary infiltrate, pulmonary vascular congestion, interstitial edema, and on the , x- ray showed persistent infiltrates. When I looked at the x-rays, they looked about the same and he was admitted on the , had IV antibiotics, bronchodilators, and discharged on cephalosporin, which he took. He felt better while he was here, cough, and dyspnea on exertion were about the same, his main complaint now is severe fatigue, which may a component of dyspnea. CT scan on the showed bilateral airspace disease, consolidation in right upper and lower lobes and right middle lobe and left lower lobe. He has no fever, CRP has improved at 40 compared to his last admission. The differential includes infectious etiologies like a resolving bacterial pneumonia versus resolving viral pneumonia and do not think he has developed a new infection including I do not think he had a hospital-acquired pneumonia from his last presentation as he has not had a flare-up of inflammatory symptoms, rather he seems to be having a slow convalescence. I think tuberculosis reactivation less likely as there is no involvement at the apices, his CRP is improving, he is not having fevers, not having significant symptoms of inflammation, in fact overall, he has slightly improved, but for the dyspnea and fatigue. Sarcoidosis had been mentioned as a possible cause of his cardiomyopathy that would be in the differential as well for his persistent infiltrate and lymphadenopathy. 2. Status post ICD placement in the setting of nonischemic cardiomyopathy. 3. Right lung abscess, treated 2011. 4. Status post mitral valve repair. RECOMMENDATION: Continue vancomycin goal trough 10 to 15. Stop Zosyn. We will start ceftriaxone 1 g a day and azithro 500 mg while we await his culture results including we will try to get a sputum culture. I think it will be reasonable to have Dr. Moore check in with him regarding a question of sarcoidosis or other noninfectious cause of his persistent pulmonary symptoms. HISTORY OF PRESENT ILLNESS: This is an 80-year-old male with history of lung abscess, mitral valve repair, and an ICD, admitted with fatigue and dyspnea on exertion. He notes over the last 3 months less endurance when it comes to swimming developing slightly more dyspnea and be able to swim shorter distances with occasional cough while in the pool. He had had no fevers, chills, drenching sweats, or weight loss during that time, and his appetite has been good. Then, around [place], he became more dyspneic on exertion with a couple of episodes of sweats. He was seen by his primary doctor and then seen in the ER on the , was discharged with viral syndrome. He came back on the because of persistent dyspnea on exertion, was readmitted. At that time, the chest x-ray showed right greater than left infiltrates. He had had no fevers, chills, or sweats during that time. He was treated with IV antibiotics , bronchodilators, discharged on an oral cephalosporin, which he tolerated well and took to completion. His CRP when he left here was about 75. He has continued to be dyspneic on exertion, not at rest and felt like he has had no energy. Because of lack of energy, he saw his primary doctor, who ordered chest x-ray, which was unchanged. He was directed for admission, which happened yesterday afternoon and started on vancomycin, Zosyn, azithromycin. Blood cultures were sent and are pending. Urine legionella and pneumococcal antigens were negative. He had no white count. His CRP is down to 41. He denies fevers, chills, sweats, anorexia, or weight loss. He notes a cough worse when he lies down, no cough today. Some cough suppressants have held. He has no dyspnea at rest, only with exertion. His oxygen saturation was about 90% on room air, 95% on 3 L. PAST MEDICAL HISTORY: 1. Status post mitral valve repair. 2. Status post ICD placement. 3. Nonischemic cardiomyopathy. 4. History of ventricular tachycardia. 5. Aortic stenosis. 6. Hypertension. 7. Atrial fibrillation. 8. History of right lung abscess. MEDICATIONS: 1. Tylenol. 2. Amiodarone. 3. Lipitor. 4. Diltiazem. 5. Metoprolol. 6. Zosyn 3.375 g every 6 hours. 7. Vancomycin 750 mg every 8 hours. 8. Azithromycin 500 mg daily. 9. Warfarin tablet. ALLERGIES: No known drug allergies. FAMILY HISTORY: His aunt had tuberculosis when he was a child and he had minimal contact with her while she was sick. Has not lived in any other countries. SOCIAL HISTORY: Lives in [place]. Recent travel to [place]. Lives with his . Has not been sick. There is a cat at home. No new animals. No bird contact. REVIEW OF SYSTEMS: All negative except as noted above. PHYSICAL EXAM: Vital Signs: Temperature 36.8, heart rate 70, respiratory rate , blood pressure 130/60, O2 sat 94% on 3 L. General: He is in no acute distress, nondiaphoretic. Neurologically, awake, oriented x3, follows all commands. Moves all extremities. Neck: Supple without nuchal rigidity. HEENT : There is no conjunctival hemorrhage. Oropharynx without lesions. Heart: Regular rate and rhythm without murmurs, rubs, or gallops. Lungs: Pretty clear on the left. On the right upper lung field, there is egophony, there are inspiratory rales, and at the base, there are expiratory rales and tubular breath sounds. Abdomen: Soft, nontender, nondistended without hepatosplenomegaly. Skin: There are no rash or splinter hemorrhages. Musculoskeletal: There is no spine tenderness to palpation or joint synovitis. Lymph Nodes: There is no cervical, supraclavicular, inguinal, axillary, or epitrochlear lymphadenopathy. LABORATORY DATA: White blood cell count 8.5, hemoglobin 9.9, platelets 300. Creatinine 1.1. CRP 41. Please see impressions and recommendations as outlined above, which I have discussed with ROBBIE Gregory. Thanks for asking me to see Mr. Al in consultation. [id number]/[facility] #: [id number] [facility]ENTERGarfield
--- NOTE | 2016-06-14 14:52 | PN ---
Subjective Date of Service: 06/14/16 Interval History: This is an 80 yo male with a h/o a prior mitral valve repair, Vtach s/p defibrillator placement, atrial fibrillation, HTN HLD, and a questionable history of sarcoidosis who presented with complaints of dyspnea. Patient's symptoms started ~ 4 weeks ago. Patient was treated for a bronchitis by his PCP , he was then dx'd with a PNU with RLL on CXR and started on Levaquin the beginning of June. He then returned again to the ER not feeling better and was subsequently admitted but insistent on discharge ~ 24 hrs later and left with Vantin which completed with some improvement in symptoms. When he returned yesterday with increased dyspnea, CT of the chest was completed with showed a significant consolidation in the R lung field. He was subsequently admitted and started on Vanco, Zosyn and Azithromycin. The possibility of sarcoidosis has been discussed in the past and patient was seen by Dr Moore. Patient was not interested in immunosuppressive therapy and did not move forward with further work-up because of this. Last chest CT from 2012 was noted to be normal. Today, patient reports continued feelings of GRIFFITHS and has desaturated in to the mid 80s while ambulating. Maintaining O2 sats in the mid 90s on 3L NC. He has had an occasional productive cough. No abdominal pain, n/v. Objective Active Medications: Acetaminophen (Tylenol Tab*) 650 mg PO Q4HR PRN PRN Reason: PAIN Amiodarone HCl (Cordarone Tab*) 100 mg PO DAILY [facility] Last Admin: 06/14/16 09:04 Dose: 100 mg Atorvastatin Calcium (Lipitor*) 20 mg PO BEDTIME [facility] Last Admin: 06/13/16 20:40 Dose: 20 mg Cyanocobalamin (Vitamin B12 Tab*) 500 mcg PO BID [facility] Last Admin: 06/14/16 09:05 Dose: 500 mcg Diltiazem HCl (Cardizem Cd Cap*) 120 mg PO BID [facility] Last Admin: 06/14/16 09:05 Dose: 120 mg Azithromycin 500 mg/ Sodium (Chloride) 250 mls @ 250 mls/hr IVPB Q24H [facility] Last Admin: 06/13/16 20:39 Dose: 250 mls/hr Vancomycin HCl 750 mg/ Sodium (Chloride) 250 mls @ 166.667 mls/hr IVPB Q8H [facility] Last Admin: 06/14/16 11:29 Dose: 166.667 mls/hr Ceftriaxone Sodium 1,000 mg/ (Sodium Chloride) 50 mls @ 200 mls/hr IVPB Q24H [facility] Metoprolol Succinate (Toprol Xl Tab*) 50 mg PO DAILY [facility] Last Admin: 06/14/16 09:04 Dose: 50 mg Multivitamins/Minerals (Theragran/Minerals Tab*) 1 tab PO DAILY [facility] Last Admin: 06/14/16 09:04 Dose: 1 tab Pharmacy Consult (Vancomycin Per Pharmacy*) 1 note FOLLOW UP . PRN PRN Reason: PER PROTOCOL Pharmacy Profile Note (Coumadin Daily Reminder*) 1 note FOLLOW UP 170 [facility] Pharmacy Profile Note (Vancomycin Trough Check) 1 note FOLLOW UP 193 ONE Stop: 06/14/16 19:31 Tramadol HCl (Ultram*) 50 mg PO Q6HR PRN PRN Reason: PAIN Warfarin Sodium (Coumadin Tab(*)) 3 mg PO 1600 [facility] PRN Reason: Protocol Warfarin Sodium (Coumadin Tab(*)) 4 mg PO 1600 [facility] Vital Signs: Temp Pulse Resp BP Pulse Ox 98.2 F 71 16 129/66 95 06/14/16 07:15 06/14/16 07:15 06/14/16 07:15 06/14/16 07:15 06/14/16 08:54 Appearance: Well appearing elderly gentleman in NAD sitting up at the side of the bed Respiratory: Symmetrical Chest Expansion and Respiratory Effort, - - course crackles in entire R lung field and L base Cardiovascular: RRR, - - 3/6 murmur Abdominal: NL Sounds; No Tenderness; No Distention Extremities: No Edema Skin: No Rash or Ulcers Neurological: Alert and Oriented x 3 Result Diagrams: 06/14/16 03:58 06/14/16 03:58 Microbiology and Other Data: Microbiology 06/14/16 10:15 Gram Stain - Final Sputum Expectorated Diagnostic Imaging: CT Chest - consolidation in R lung field and patchy infiltrate in L lung field Assess/Plan/Problems-Billing Assessment: This is an 80 yo gentleman with a history of mitral valve repair, Vtach with defibrillator in place, afib anticoagulated with afib, HTN, HLD, aortic stenosis and possible history of sarcoidosis who presented with persistent dyspnea secondary to PNU after failing outpatient antibiotics. - Patient Problems (1) Pneumonia Comment: Patient has been treated with Levaquin and Vantin without improvement Hypoxic with ambulation Large primarily R sided infiltrate No fever or leukocytosis Stop Zosyn Start ceftriaxone and cont azithromycin and vancomycin consider this infiltrate being outside medical sales representative of sarcoidosis, requested consultation from Dr Moore who plans to perform bronchoscopy which patient is agreeable to Appreciate ID consult (2) Atrial fibrillation Comment: currently in sinus, cont BB and amiodarone anticoagulated with coumadin, currently subtherapeutic Will not bridge (3) V-tach Comment: H/o Vtach With defibrillator in place (4) H/O mitral valve repair (5) HTN (hypertension) Comment: cont antihypertensives (6) HLD (hyperlipidemia) Comment: Cont statin (7) Aortic stenosis Comment: Mild Status and Disposition: cont IV abx, may require prolonged course if this is confirmed to be infectious. Pending pulmonology consult and bronchoscopy
[2016-06-14] MEDS: cefTRIAXone VIAL(*) 1,000 MG in NS 0.9% 50 ML* 50 ML IVPB SCH (15:08)
[2016-06-14] MEDS: Warfarin TAB(*) 3 MG PO SCH (16:50)
[2016-06-14] MEDS: Warfarin TAB(*) 4 MG PO SCH (16:50)
[2016-06-14] MEDS: Azithromycin IV(*) 500 MG in NS 0.9% 250 ML* 250 ML IVPB SCH (18:10)
[2016-06-14] MEDS ORDERED: Vancomycin Trough Check NOTE FOLLOW UP ONE (19:30)
[2016-06-14] MEDS: Atorvastatin* 20 MG TAB PO SCH (20:26)
[2016-06-14] MEDS: Acetaminophen TAB* 325 MG PO PRN (20:26)
[2016-06-15] MEDS: Vancomycin(*) 750 MG in NS 0.9% 250 ML* 250 ML IVPB SCH ×3 (04:09→19:48)
[2016-06-15] MEDS: Multivitamins/Minerals TAB PO SCH (09:43)
[2016-06-15] MEDS: Diltiazem CD CAP* 120 MG PO SCH ×2 (09:43→21:21)
[2016-06-15] MEDS: Metoprolol Succinate XL TAB* 50 MG PO SCH (09:43)
[2016-06-15] MEDS: Amiodarone TAB* 200 MG PO SCH (09:43)
[2016-06-15] MEDS: Cyanocobalamin TAB* 500 MCG PO SCH ×2 (09:43→21:20)
--- NOTE | 2016-06-15 10:29 | CONS ---
CONSULTATION REPORT: DATE OF CONSULT: 06/15/2016. CONSULTATION REQUESTED BY: ROBBIE Gregory. REASON FOR CONSULTATION: Evaluation of shortness of breath, hypoxemia. HISTORY OF PRESENT ILLNESS: Mr. Al is an 80-year-old pleasant white male known to me from outpatient evaluation. Patient has history of mediastinal and hilar adenopathy. The patient also has history of mitral valve repair, V-tach with defibrillator placement, and aortic stenosis. Patient was evaluated for possible mediatinal adenopathy in the past. Patient denied any symptoms at that time and declined bronchoscopy and EBUS procedure for evaluation of lymph nodes. Patient did not have parenchymal involvement at that time. Patient is usually active at his baseline and has no symptoms. On Yany, he started having sudden onset of shortness of breath while walking stairs. He was evaluated by his primary care physician on 05/30/2016 and was diagnosed with acute bronchitis. He was started on Advair. He continued to feel unwell and came to the ED for evaluation on 06/04/2016. He had chest x-ray at that time which showed parenchymal opacities and was diagnosed with pneumonia and was treated with antibiotics, Levaquin. Patient followed up with [facility] on 06/05/16, SOB attributed to PNA/bronchitis. Patient continued to feel unwell and decided coming to the emergency room on 10/2016. He was admitted for evaluation of shortness of breath and pneumonia. Patient left the following day on antibiotics. He started feeling worse again and was seen by primary care physician. Laboratory workup showed no leukocytosis and given persistent symptoms was advised to be admitted. Patient was seen and examined at bedside this morning. Patient reports slight improvement in shortness of breath and fatigue. Patient has a dry, intermittent cough. Patient denies chest pain, palpitations, dizziness, lower extremity edema. Of note, the patient was treated in 2011 for gram-negative pneumonia and right upper lobe pleural-based mass. Patient had biopsy at that time which was found to be inflammatory in nature. Patient was started on broad -spectrum antibiotics and was reevaluated by ID for pneumonia. Patient had CT scan of the chest for further evaluation of these abnormalities. I personally reviewed CT of the chest. Patient noted to have air/space opacities with predominance of the bronchovascular bundles , air bronchograms and dense consolidation in the lower lobe. Patient also noted to have increasing size of paratracheal adenopathy. He also has hilar adenopathy. Patient has been afebrile since admission. His O2 levels have been low and he is on supplemental oxygen at this time. No leukocytosis was noted. Lab tests within normal limit. Lactic acid within normal limits. PAST MEDICAL HISTORY: 1. Pneumonia treated in 2011. 2. Mitral valve repair. 3. V-tach with defibrillator placement. 4. Aortic stenosis. 5. Hypertension. 6. Suspected sarcoidosis. 7. AFib. 8. Hypertension. MEDICATIONS: 1. Alendronate. 2. Calcium citrate. 3. Ergocalciferol. 4. Glucosamine. 5. Magnesium oxide. 6. Multivitamin. 7. Naproxen. 8. Sildenafil. 9. Tylenol. 10. Amiodarone. 11. Atorvastatin. 12. Cyanocobalamin. 13. Diltiazem. 14. Metoprolol. 15. Multivitamin. 16. Warfarin. 17. Tramadol. ALLERGIES: No known drug allergies. FAMILY HISTORY: Reviewed and noncontributory to current complaint. SOCIAL HISTORY: No alcohol, tobacco or drug abuse. The patient is very active at baseline. REVIEW OF SYSTEMS: A 14-point review of systems was performed and is negative other than mentioned in HPI. PHYSICAL EXAMINATION: General: The patient in bed, in no apparent distress. Vital Signs: Temperature 98.1, pulse 75 beats per minute, respiratory rate 16 per minute, O2 sat 97% on 3 L, blood pressure 109/47. HEENT: Pupils are equal and reactive to light. Mucous membranes moist. Neck: Supple. No JVD. No palpable cervical adenopathy. Lungs: Crackles bilaterally, more prominent on the right lower lung zone. Cardiovascular: S1, S2 present. No murmurs, gallops or rubs. Abdomen: Soft, nontender, nondistended, bowel sounds present. Extremities: No cyanosis or edema. Neurologic: Alert, awake, oriented x3. No focal deficits. Skin: Intact. LABORATORY EXAM: WBC count 8.5, hemoglobin 9.9, hematocrit 31, platelet count 300. INR 1.47. Sodium 135, potassium 4.4, chloride 102, bicarb 26, BUN 17, creatinine 1.1, procalcitonin less than 0.1. CT chest as described above in HPI. IMPRESSION AND RECOMMENDATIONS: 80-year-old male admitted with worsening shortness of breath, fatigue with bilateral parenchymal opacities, hypoxemia and mediastinal adenopathy. 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 Less likely to be pulmonary tuberculosis, given no risk factors and not on immunosuppressive medications for reactivation. Hypoxemia, likely secondary to parenchymal opacities. Continue with O2 supplementation. Continue with IV antibiotics for possible pneumonia given sudden change in clinical status. Will schedule the patient for bronchoscopy and EBUS on 06/20/2016. Procedure was discussed in detail with the patient. Associated risks and benefits were thoroughly discussed. The patient agreeable for procedure. Further recommendations pending biopsy results. The patient might need treatment for pulmonary sarcoidosis if biopsy is positive. Thank you for allowing me to participate in the care of your patient. I will follow up with you. [id number]/[facility] #: [id number] [facility]
--- NOTE | 2016-06-15 11:04 | ED ---
Gutierrez Steen Benjamin, scribed for Oscar Almazan MD on 06/13/16 at 1410 . Shortness of Breath - HPI Summary HPI Summary: 80yo male who was recently dx'ed with PNA (dc'ed on saturday) came back for a F/U x-ray. Pt states that his symptoms are not getting better, and pt felt SOB today at the ED registration. pt is on abx for 2 days now. Pt reports deep breaths induces cough. Denies any swelling in legs. - History of Current Complaint Chief Complaint: EDShortnessOfBreath Time Seen by Provider: 06/13/16 14:00 Hx Obtained From: Patient Onset/Duration: Gradual Onset, Lasting Days, Still Present Timing: Constant Current Severity: Mild Dyspnea At: Rest Aggrevating Factors: Nothing Alleviating Factors: Nothing Associated Signs & Symptoms: Cough (Nonproductive) - Allergy/Home Medications Allergies/Adverse Reactions: Allergies Allergy/AdvReac Type Severity Reaction Status Date / Time No Known Allergies Allergy Verified 06/13/16 13:08 Home Medications: Home Medications Calcium Citrate TAB* [Citracal TAB*] 640 mg PO DAILY 06/13/16 [History Confirmed 06/13/16] Cyanocobalamin TAB* [Vitamin B12 TAB*] 500 mcg PO BID 06/13/16 [History Confirmed 06/13/16] Glucosamine CAP (NF) 1,000 cap PO DAILY 06/13/16 [History Confirmed 06/13/16] Naproxen Sodium 220 mg PO .1-2 TIMES A WEEK PRN 06/13/16 [History Confirmed 04/19] Warfarin TAB(*) [Coumadin TAB(*)] 2.5 mg PO JOLLEY 06/13/16 [History] Warfarin TAB(*) [Coumadin TAB(*)] 5 mg PO MOTUWETHFRSA 06/13/16 [History] traMADol TAB* [Ultram*] 50 mg PO Q6HR PRN 06/13/16 [History Confirmed 06/13/16] PMH/Surg Hx/FS Hx/Imm Hx Endocrine/Hematology History: Denies: Hx Diabetes, Hx Systemic Lupus Erythematosus Cardiovascular History: Reports: Hx Auto Implanted Cardiovert Defib, Hx Coronary Artery Disease, Hx Hypertension, Hx Pacemaker/ICD - AICD, Hx Valvular Heart Disease - mitral valve replacement, Other Cardiovascular Problems/ Disorders - mitral regurgitation Denies: Hx Congestive Heart Failure Respiratory History: Reports: Other Respiratory Problems/Disorders - FUSO- BACTERIUM INFECTION-3 YEARS AGO- [place] BY DR. RODRÍGUEZ GI History: Reports: Hx Diverticulosis, Hx Ulcer, Other GI Disorders - 1974 stomach repair, currently acid reflux History: Reports: Hx Benign Prostatic Hyperplasia, Other Problems/ Disorders - bladder infections Denies: Hx Dialysis, Hx Renal Disease Musculoskeletal History: Reports: Hx Arthritis, Hx Back Problems, Other Musculoskeletal History - spinal stenosis Denies: Hx Rheumatoid Arthritis Sensory History: Reports: Hx Cataracts - BILATERAL, Hx Contacts or Glasses Denies: Hx Hearing Aid Opthamlomology History: Reports: Hx Cataracts - BILATERAL, Hx Contacts or Glasses Neurological History: Denies: Hx Headaches, Hx Transient Ischemic Attacks (TIA) Psychiatric History: Denies: Hx Panic Disorder - Cancer History Hx Chemotherapy: No - Surgical History Surgery Procedure, Year, and Place: DEFIBRILATOR, MYTRAL VALVE REPAIR, STOMACH ULCER REPAIR, BILAT SHOULDER REPAIR Hx Anesthesia Reactions: No Infectious Disease History: No Infectious Disease History: Denies: Hx Clostridium Difficile, Traveled Outside the [place] in Last 30 Days - Family History Known Family History: Positive: Other - Negative malignant hyperthermia, negative anesthesia reaction - Social History Occupation: Retired Lives: With Family Alcohol Use: Rare 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 Hx Substance Use: No Substance Use Type: Reports: None Substance Use Comment - Amount & Last Used: SINCE 1987 Hx Tobacco Use: No Smoking Status (MU): Former Smoker Type: Cigarettes Amount Used/How Often: 2ppd Length of Time of Smoking/Using Tobacco: 35 years Have You Smoked in the Last Year: No Review of Systems Constitutional: Negative Eyes: Negative ENT: Negative Cardiovascular: Negative Positive: Shortness Of Breath, Cough Gastrointestinal: Negative Genitourinary: Negative Musculoskeletal: Negative Skin: Negative Neurological: Negative Psychological: Normal All Other Systems Reviewed And Are Negative: Yes Physical Exam Vital Signs On Initial Exam: Initial Vitals Temp Pulse Resp BP Pulse Ox 99 F 76 16 131/65 93 06/13/16 13:08 06/13/16 13:08 06/13/16 13:08 06/13/16 13:08 06/13/16 13:08 Vital Signs Reviewed: Yes Appearance: Positive: Well-Appearing, No Pain Distress, Well-Nourished Skin: Positive: Warm, Skin Color Reflects Adequate Perfusion, Dry Head/Face: Positive: Normal Head/Face Inspection Eyes: Positive: Normal ENT: Positive: Normal ENT inspection Neck: Positive: Supple, Nontender Respiratory/Lung Sounds: Positive: Breath Sounds Present, Other - diffuse crackles Cardiovascular: Positive: RRR Abdomen Description: Positive: Nontender, Soft Bowel Sounds: Positive: Present Musculoskeletal: Positive: Normal, Strength/ROM Intact Neurological: Positive: Normal, Sensory/Motor Intact, Alert, Oriented to Person Place, Time, CN Intact II-III, Reflexes Intact Psychiatric: Positive: Affect/Mood Appropriate Diagnostics - Vital Signs Vital Signs Temp Pulse Resp BP Pulse Ox 06/13/16 13:08 99 F 76 16 131/65 93 - Laboratory Lab Results: Lab Results 06/13/16 06/13/16 06/13/16 Range/Units 15:15 15:15 16:20 WBC (3.5-10.8) 10^3/ul RBC (4.0-5.4) 10^6/ul Hgb (14.0-18.0) g/dl Hct (42-52) % MCV (80-94) fL MCH (27-31) pg MCHC (31-36) g/dl RDW (10.5-15) % Plt Count (150-450) 10^3/ul MPV (7.4-10.4) um3 Neut % (Auto) (38-83) % Lymph % (Auto) (25-47) % [place] % (Auto) (1-9) % Eos % (Auto) (0-6) % Baso % (Auto) (0-2) % Absolute Neuts (auto) (1.5-7.7) 10^3/ul Absolute Lymphs (auto) (1.0-4.8) 10^3/ul Absolute Monos (auto) (0-0.8) 10^3/ul Absolute Eos (auto) (0-0.6) 10^3/ul Absolute Basos (auto) (0-0.2) 10^3/ul Absolute Nucleated RBC 10^3/ul Nucleated RBC % INR (Anticoag Therapy) 1.48 H (0.89-1.11) Sodium 133 (133-145) mmol/L Potassium TNP Chloride 101 (101-111) mmol/L Carbon Dioxide 29 (22-32) mmol/L Anion Gap TNP BUN 15 (6-24) mg/dL Creatinine 0.97 (0.67-1.17) mg/dL Est GFR ( Amer) 95.3 (>60) Est GFR (Non-Af Amer) 74.1 (>60) BUN/Creatinine Ratio 15.5 (8-20) Glucose 86 (70-100) mg/dL Lactic Acid 0.9 (0.5-2.0) mmol/L Calcium 8.4 L (8.6-10.3) mg/dL Total Bilirubin 0.40 (0.2-1.0) mg/dL AST TNP ALT 30 (7-52) U/L Alkaline Phosphatase 65 (34-104) U/L Troponin I 0.01 (<0.04) ng/mL C-Reactive Protein 41.83 H (< 5.00) mg/L Total Protein 6.6 (6.4-8.9) g/dL Albumin 2.7 L (3.2-5.2) g/dL Globulin 3.9 (2-4) g/dL Albumin/Globulin Ratio 0.7 L (1-3) 06/13/16 06/13/16 06/13/16 Range/Units 16:20 16:20 16:20 WBC 8.0 (3.5-10.8) 10^3/ul RBC 3.69 L (4.0-5.4) 10^6/ul Hgb 10.6 L (14.0-18.0) g/dl Hct 32 L (42-52) % MCV 87 (80-94) fL MCH 29 (27-31) pg MCHC 33 (31-36) g/dl RDW 15 (10.5-15) % Plt Count 350 (150-450) 10^3/ul MPV 8 (7.4-10.4) um3 Neut % (Auto) 77.0 (38-83) % Lymph % (Auto) 15.0 L (25-47) % [place] % (Auto) 5.6 (1-9) % Eos % (Auto) 1.8 (0-6) % Baso % (Auto) 0.6 (0-2) % Absolute Neuts (auto) 6.2 (1.5-7.7) 10^3/ul Absolute Lymphs (auto) 1.2 (1.0-4.8) 10^3/ul Absolute Monos (auto) 0.5 (0-0.8) 10^3/ul Absolute Eos (auto) 0.1 (0-0.6) 10^3/ul Absolute Basos (auto) 0 (0-0.2) 10^3/ul Absolute Nucleated RBC 0 10^3/ul Nucleated RBC % 0 INR (Anticoag Therapy) 1.48 H (0.89-1.11) Sodium (133-145) mmol/L Potassium 4.2 Chloride (101-111) mmol/L Carbon Dioxide (22-32) mmol/L Anion Gap BUN (6-24) mg/dL Creatinine (0.67-1.17) mg/dL Est GFR ( Amer) (>60) Est GFR (Non-Af Amer) (>60) BUN/Creatinine Ratio (8-20) Glucose (70-100) mg/dL Lactic Acid (0.5-2.0) mmol/L Calcium (8.6-10.3) mg/dL Total Bilirubin (0.2-1.0) mg/dL AST 26 ALT (7-52) U/L Alkaline Phosphatase (34-104) U/L Troponin I (<0.04) ng/mL C-Reactive Protein (< 5.00) mg/L Total Protein (6.4-8.9) g/dL Albumin (3.2-5.2) g/dL Globulin (2-4) g/dL Albumin/Globulin Ratio (1-3) Result Diagrams: 06/14/16 03:58 06/14/16 03:58 Lab Statement: Any lab studies that have been ordered have been reviewed, and results considered in the medical decision making process. - EKG 1338 Cardiac Rate: NL EKG Rhythm: Sinus Rhythm Ectopy: PVCs Course/Dx - Course Course Of Treatment: Mr. Al presented for a F/U CXR as he has started to get worse again at home. He got SOB walking in to the hospital. I have asked the hospitalists to consult. - Diagnoses Provider Diagnoses: Pneumonia, Sarcoidosis of lung - Physician Notifications Discussed Care of Patient With: Dr. Quintanilla (Hospitalist) @[phone]. Instructed by Provider To: MD Will See In ED Discharge - Discharge Plan Condition: Stable Disposition: ADMITTED TO [facility] documentation as recorded by the Gutierrez kamara Benjamin accurately reflects the service I personally performed and the decisions made by me, Oscar Almazan MD.
[2016-06-15] MEDS: cefTRIAXone VIAL(*) 1,000 MG in NS 0.9% 50 ML* 50 ML IVPB SCH (14:56)
[2016-06-15] MEDS: Azithromycin TAB* 250 MG PO SCH (15:44)
[2016-06-15] MEDS: Warfarin TAB(*) 3 MG PO SCH (15:44)
[2016-06-15] MEDS: Warfarin TAB(*) 4 MG PO SCH (15:44)
[2016-06-15] MEDS ORDERED: Warfarin TAB(*) 4 MG PO ONE (17:00)
[2016-06-15] MEDS ORDERED: Warfarin TAB(*) 3 MG PO ONE (17:00)
--- NOTE | 2016-06-15 17:42 | PN ---
Subjective Date of Service: 06/15/16 Interval History: Patient seen and examined at bedside. Pt states that he continues to get shortness of breath with ambulation. Pt reports that his O2 sat decreased to 88 % while he was walking and it took 2 minutes to recover to 92% after stopping to rest. Denies fever, chills, chest discomfort, N/V/D. Reports an occasional productive cough. Family History: Unchanged from Admission Social History: Unchanged from Admission Past Medical History: Unchanged from Admission Objective Active Medications: Acetaminophen (Tylenol Tab*) 650 mg PO Q4HR PRN Reason: PAIN Amiodarone HCl (Cordarone Tab*) 100 mg PO DAILY [facility] Atorvastatin Calcium (Lipitor*) 20 mg PO BEDTIME RUIZ Azithromycin (Zithromax Tab*) 250 mg PO DAILY [facility] Stop: 06/17/16 23:59 Cyanocobalamin (Vitamin B12 Tab*) 500 mcg PO BID RUIZ Diltiazem HCl (Cardizem Cd Cap*) 120 mg PO BID RUIZ Vancomycin HCl 750 mg/ Sodium (Chloride) 250 mls @ 166.667 mls/hr IVPB Q8H RUIZ Ceftriaxone Sodium 1,000 mg/ (Sodium Chloride) 50 mls @ 200 mls/hr IVPB Q24H RUIZ Metoprolol Succinate (Toprol Xl Tab*) 50 mg PO DAILY [facility] Multivitamins/Minerals (Theragran/Minerals Tab*) 1 tab PO DAILY [facility] Pharmacy Consult (Vancomycin Per Pharmacy*) 1 note FOLLOW UP . PRN Reason: PER PROTOCOL Pharmacy Profile Note (Coumadin Per Pharmacy*) 1 note FOLLOW UP .PER PHARMACY PROTOC RUIZ Reason: Protocol Tramadol HCl (Ultram*) 50 mg PO Q6HR PRN Reason: PAIN Vital Signs 06/14/16 06/14/16 06/14/16 20:00 20:03 23:34 Temperature 98.3 F 98.1 F Pulse Rate 72 75 Respiratory 18 22 16 Rate Blood Pressure 122/66 109/47 (mmHg) O2 Sat by Pulse 91 95 Oximetry 06/15/16 06/15/16 06/15/16 01:33 07:27 08:00 Temperature 98.2 F Pulse Rate 69 Respiratory 16 16 Rate Blood Pressure 123/44 (mmHg) O2 Sat by Pulse 97 91 Oximetry 06/15/16 06/15/16 11:47 15:36 Temperature 98.0 F Pulse Rate 60 Respiratory 16 Rate Blood Pressure 125/55 (mmHg) O2 Sat by Pulse 93 96 Oximetry Oxygen Devices in Use Now: Nasal Cannula - 3L Appearance: NAD, sitting on the side of the bed. Eyes: No Scleral Icterus, PERRLA Ears/Nose/Mouth/Throat: NL Teeth, Lips, Gums, Mucous Membranes Moist Neck: NL Appearance and Movements; NL JVP, Trachea Midline Respiratory: Symmetrical Chest Expansion and Respiratory Effort, - - crackles bilateral. Cardiovascular: NL Sounds; No Murmurs; No JVD, RRR Abdominal: NL Sounds; No Tenderness; No Distention Extremities: No Edema Skin: No Rash or Ulcers Neurological: Alert and Oriented x 3, NL Muscle Strength and Tone Lines/Tubes/Other Access: Clean, Dry and Intact Peripheral IV - site benign. Nutrition: Taking PO's Result Diagrams: 06/14/16 03:58 06/14/16 03:58 Microbiology and Other Data: Microbiology 06/14/16 10:15 Gram Stain - Final Sputum Expectorated Diagnostic Imaging: CT Chest - consolidation in R lung field and patchy infiltrate in L lung field Assess/Plan/Problems-Billing Assessment: Mr. Al is an 80 yo gentleman with a history of mitral valve repair, Vtach with defibrillator in place, afib and anticoagulated, HTN, HLD, aortic stenosis and possible history of sarcoidosis who presented with persistent dyspnea secondary to possible pneumonia after failing outpatient antibiotics vs sarcoidosis. - Patient Problems (1) Pneumonia Code(s): J18.9 - PNEUMONIA, UNSPECIFIED ORGANISM SNOMED Code(s): 119119962 Comment: Patient has been treated with Levaquin and Vantin without improvement. Hypoxic with ambulation, continues to require supplemental O2. Large primarily R sided infiltrate, no fever or leukocytosis. Suspect this infiltrate may represent sarcoidosis and not PNA, appreciate Pulm input. Plan to perform Bronco on Saturday. Appreciate ID input. Continue ceftriaxone, azithromycin and vancomycin. (2) Atrial fibrillation Code(s): I48.91 - UNSPECIFIED ATRIAL FIBRILLATION SNOMED Code(s): 22777203 Comment: Currently in sinus, cont BB and amiodarone. Anticoagulated with coumadin, currently subtherapeutic. Will follow INR. (3) V-tach Code(s): I47.2 - VENTRICULAR TACHYCARDIA SNOMED Code(s): 13182622 Comment: H/o Vtach With defibrillator in place (4) Aortic stenosis Current Visit: No Code(s): I35.0 - NONRHEUMATIC AORTIC (VALVE) STENOSIS SNOMED Code(s): 94154922 Comment: Mild (5) H/O mitral valve repair Code(s): Z98.890 - OTHER SPECIFIED POSTPROCEDURAL STATES SNOMED Code(s): 373079048 (6) HTN (hypertension) Code(s): I10 - ESSENTIAL (PRIMARY) HYPERTENSION SNOMED Code(s): 17076637 Comment: BP controlled. (7) DVT prophylaxis Code(s): XON6525 - SNOMED Code(s): 281239679 Comment: Coumadin (8) Full code status Code(s): Z78.9 - OTHER SPECIFIED HEALTH STATUS SNOMED Code(s): 421849129 Status and Disposition: Inpatient, continues to require increased supplemental O2. Pending bronchoscopy. Plan to discharge to home when medically stable.
[2016-06-15] MEDS: Atorvastatin* 20 MG TAB PO SCH (21:20)
[2016-06-15] MEDS: Acetaminophen TAB* 325 MG PO PRN (21:24)
[2016-06-16] MEDS: Vancomycin(*) 750 MG in NS 0.9% 250 ML* 250 ML IVPB SCH ×3 (03:47→19:46)
[2016-06-16 06:13] LABS: Hematocrit 30 % (42-52); Hemoglobin 9.8 g/dl (14.0-18.0); Mean Corpuscular HGB Conc 32 g/dl (31-36); Mean Corpuscular Hemoglobin 28 pg (27-31); Mean Corpuscular Volume 88 fL (80-94); Mean Platelet Volume 7 um3 (7.4-10.4); Red Blood Count 3.46 10^6/ul (4.0-5.4); Red Cell Distribution Width 16 % (10.5-15); White Blood Count 7.1 10^3/ul (3.5-10.8)
--- NOTE | 2016-06-16 08:53 | PN ---
Subjective Date of Service: 06/16/16 Interval History: Patient seen and examined at bedside. Pt states that he continues to feel like he is not improving. He is discouraged by the fact that he was able to ambulate in the hallways last week and over the last week, he is able to ambulate less due to shortness of breath and his O2 sat dropping with ambulation. Ms. Al states that he is able to ambulate to the bathroom without shortness of breath. He reports that his O2 sats have been in the low 90's since his O2 was decreased to 2L. Pt is also upset about having to wait until Saturday for a bronchoscopy. Pt reports an occasional cough, and reports one episode of "dark red" mucous this AM. Denies fever, chills, chest discomfort, N/V/D. Family History: Unchanged from Admission Social History: Unchanged from Admission Past Medical History: Unchanged from Admission Objective Active Medications: Acetaminophen (Tylenol Tab*) 650 mg PO Q4HR PRN Reason: PAIN Amiodarone HCl (Cordarone Tab*) 100 mg PO DAILY [facility] Atorvastatin Calcium (Lipitor*) 20 mg PO BEDTIME RUIZ Azithromycin (Zithromax Tab*) 250 mg PO DAILY [facility] Stop: 06/17/16 23:59 Cyanocobalamin (Vitamin B12 Tab*) 500 mcg PO BID RUIZ Diltiazem HCl (Cardizem Cd Cap*) 120 mg PO BID RUIZ Vancomycin HCl 750 mg/ Sodium (Chloride) 250 mls @ 166.667 mls/hr IVPB Q8H RUIZ Ceftriaxone Sodium 1,000 mg/ (Sodium Chloride) 50 mls @ 200 mls/hr IVPB Q24H RUIZ Metoprolol Succinate (Toprol Xl Tab*) 50 mg PO DAILY [facility] Multivitamins/Minerals (Theragran/Minerals Tab*) 1 tab PO DAILY [facility] Pharmacy Consult (Vancomycin Per Pharmacy*) 1 note FOLLOW UP . PRN Pharmacy Profile Note (Coumadin Per Pharmacy*) 1 note FOLLOW UP .PER PHARMACY PROTOC RUIZ Tramadol HCl (Ultram*) 50 mg PO Q6HR PRN Reason: PAIN Warfarin Sodium (Coumadin Tab(*)) 2 mg PO 1700 ONE Stop: 06/16/16 17:01 Vital Signs 06/15/16 06/15/16 06/15/16 11:47 15:36 20:00 Temperature 98.0 F Pulse Rate 60 Respiratory 16 16 Rate Blood Pressure 125/55 (mmHg) O2 Sat by Pulse 93 96 Oximetry 06/15/16 06/16/16 23:26 07:16 Temperature 98.0 F Pulse Rate 63 73 Respiratory 16 Rate Blood Pressure 132/38 133/62 (mmHg) O2 Sat by Pulse 92 92 Oximetry Oxygen Devices in Use Now: Nasal Cannula - 3L Appearance: NAD, sitting up in bed. Eyes: No Scleral Icterus, PERRLA Ears/Nose/Mouth/Throat: NL Teeth, Lips, Gums, Mucous Membranes Moist Neck: NL Appearance and Movements; NL JVP, Trachea Midline Respiratory: Symmetrical Chest Expansion and Respiratory Effort - [place] sounds clear with crackles in the right lower lobe. Cardiovascular: RRR - Grade 3/6 systolic murmur, - Abdominal: NL Sounds; No Tenderness; No Distention Extremities: No Edema Skin: No Rash or Ulcers Neurological: Alert and Oriented x 3, NL Muscle Strength and Tone Lines/Tubes/Other Access: Clean, Dry and Intact Peripheral IV - site benign. Nutrition: Taking PO's Result Diagrams: 06/16/16 05:28 06/14/16 03:58 Additional Lab and Data: Microbiology and Other Data: Microbiology 06/14/16 10:15 Gram Stain - Final Sputum Expectorated Diagnostic Imaging: CT Chest - consolidation in R lung field and patchy infiltrate in L lung field Assess/Plan/Problems-Billing Assessment: Mr. Al is an 80 yo gentleman with a history of mitral valve repair, Vtach with defibrillator in place, afib and anticoagulated, HTN, HLD, aortic stenosis and possible history of sarcoidosis who presented with persistent dyspnea secondary to possible pneumonia after failing outpatient antibiotics vs sarcoidosis. - Patient Problems (1) Pneumonia Code(s): J18.9 - PNEUMONIA, UNSPECIFIED ORGANISM SNOMED Code(s): 401691055 Comment: Patient has been treated with Levaquin and Vantin without improvement. Hypoxic with ambulation, continues to require supplemental O2. Large primarily R sided infiltrate, no fever or leukocytosis. Suspect this infiltrate may represent sarcoidosis and not PNA, appreciate Pulm input. Plan to perform Bronchoscopy on Saturday. Appreciate ID input. Continue ceftriaxone, azithromycin and vancomycin. (2) Atrial fibrillation Code(s): I48.91 - UNSPECIFIED ATRIAL FIBRILLATION SNOMED Code(s): 35012364 Comment: Currently in sinus, cont BB and amiodarone. Anticoagulated with coumadin, INR therapeutic. Will follow INR. (3) V-tach Code(s): I47.2 - VENTRICULAR TACHYCARDIA SNOMED Code(s): 89297183 Comment: H/o Vtach with defibrillator in place (4) Aortic stenosis Code(s): I35.0 - NONRHEUMATIC AORTIC (VALVE) STENOSIS SNOMED Code(s): 38971597 Comment: Mild (5) H/O mitral valve repair Code(s): Z98.890 - OTHER SPECIFIED POSTPROCEDURAL STATES SNOMED Code(s): 841565069 (6) HTN (hypertension) Code(s): I10 - ESSENTIAL (PRIMARY) HYPERTENSION SNOMED Code(s): 72093682 Comment: BP controlled. (7) DVT prophylaxis Code(s): LFR4591 - SNOMED Code(s): 160036161 Comment: Coumadin (8) Full code status Code(s): Z78.9 - OTHER SPECIFIED HEALTH STATUS SNOMED Code(s): 486298395 Status and Disposition: Inpatient, continues to require supplemental O2. Pending bronchoscopy. Plan to discharge to home when medically stable.
[2016-06-16] MEDS: Azithromycin TAB* 250 MG PO SCH (09:07)
[2016-06-16] MEDS: Cyanocobalamin TAB* 500 MCG PO SCH ×2 (09:07→20:21)
[2016-06-16] MEDS: Amiodarone TAB* 200 MG PO SCH (09:07)
[2016-06-16] MEDS: Metoprolol Succinate XL TAB* 50 MG PO SCH (09:07)
[2016-06-16] MEDS: Multivitamins/Minerals TAB PO SCH (09:07)
[2016-06-16] MEDS: Diltiazem CD CAP* 120 MG PO SCH ×2 (09:07→20:21)
[2016-06-16] MEDS: cefTRIAXone VIAL(*) 1,000 MG in NS 0.9% 50 ML* 50 ML IVPB SCH (15:03)
[2016-06-16] MEDS ORDERED: Warfarin TAB(*) 2 MG PO ONE (17:00)
[2016-06-16] MEDS: Atorvastatin* 20 MG TAB PO SCH (20:21)
[2016-06-16] MEDS: Acetaminophen TAB* 325 MG PO PRN (20:24)
[2016-06-16] MEDS: traMADol TAB* 50 MG PO PRN (23:27)
[2016-06-17] MEDS: Vancomycin(*) 750 MG in NS 0.9% 250 ML* 250 ML IVPB SCH ×2 (03:34→12:42)
[2016-06-17] MEDS: Cyanocobalamin TAB* 500 MCG PO SCH ×2 (07:56→22:19)
[2016-06-17] MEDS: Diltiazem CD CAP* 120 MG PO SCH ×2 (07:56→22:19)
[2016-06-17] MEDS: Metoprolol Succinate XL TAB* 50 MG PO SCH (07:56)
[2016-06-17] MEDS: Amiodarone TAB* 200 MG PO SCH (07:56)
[2016-06-17] MEDS: Multivitamins/Minerals TAB PO SCH (07:56)
[2016-06-17] MEDS: Azithromycin TAB* 250 MG PO SCH (07:56)
[2016-06-17 07:59] LABS: Hematocrit 30 % (42-52); Hemoglobin 9.9 g/dl (14.0-18.0); Mean Platelet Volume 7 um3 (7.4-10.4)
[2016-06-17] MEDS ORDERED: Vancomycin Trough Check NOTE FOLLOW UP ONE (11:30)
[2016-06-17 12:12] LABS: EGFR African American 94.2 (>60); EGFR Non-African American 73.2 (>60)
[2016-06-17 12:36] LABS: Vancomycin Trough 16.1 mcg/mL
[2016-06-17] MEDS: Vancomycin(*) 1,250 MG in NS 0.9% 250 ML* 250 ML IVPB SCH (13:06)
[2016-06-17] MEDS: cefTRIAXone VIAL(*) 1,000 MG in NS 0.9% 50 ML* 50 ML IVPB SCH (14:50)
--- NOTE | 2016-06-17 16:32 | PN ---
Subjective Date of Service: 06/17/16 Interval History: Patient seen and examined at bedside. Pt states that his O2 sat continues to be low and that he feels like he is unable to catch his breath when he is moving. His O2 requirements increased overnight, he is requiring 4L to maintain O2 sats in the mid 90's. Pt states that he was able to walk in place for 10 minutes and his O2 sat was 88-92%. Pt also states that he was able to do some of his stretches today. Pt reports decrease in cough and mucous production today. Denies fever, chills, chest discomfort, N/V/D. Family History: Unchanged from Admission Social History: Unchanged from Admission Past Medical History: Unchanged from Admission Objective Active Medications: Acetaminophen (Tylenol Tab*) 650 mg PO Q4HR PRN Reason: PAIN Amiodarone HCl (Cordarone Tab*) 100 mg PO DAILY [facility] Atorvastatin Calcium (Lipitor*) 20 mg PO BEDTIME RUIZ Azithromycin (Zithromax Tab*) 250 mg PO DAILY [facility] Stop: 06/17/16 23:59 Cyanocobalamin (Vitamin B12 Tab*) 500 mcg PO BID RUIZ Diltiazem HCl (Cardizem Cd Cap*) 120 mg PO BID RUIZ Ceftriaxone Sodium 1,000 mg/ (Sodium Chloride) 50 mls @ 200 mls/hr IVPB Q24H RUIZ Vancomycin HCl 1,250 mg/ (Sodium Chloride) 250 mls @ 166.667 mls/hr IVPB Q12H RUIZ Metoprolol Succinate (Toprol Xl Tab*) 50 mg PO DAILY [facility] Multivitamins/Minerals (Theragran/Minerals Tab*) 1 tab PO DAILY [facility] Pharmacy Consult (Vancomycin Per Pharmacy*) 1 note FOLLOW UP . PRN Reason: PER PROTOCOL Pharmacy Profile Note (Coumadin Per Pharmacy*) 1 note FOLLOW UP .PER PHARMACY PROTOC RUIZ Reason: Protocol Pharmacy Profile Note (Vancomycin Trough Check) 1 note FOLLOW UP 1230 ONE Stop : 06/19/16 12:31 Tramadol HCl (Ultram*) 50 mg PO Q6HR PRN Reason: PAIN Warfarin Sodium (Coumadin Tab(*)) 2 mg PO 1700 ONE Stop: 06/17/16 17:01 Vital Signs 06/16/16 06/16/16 06/16/16 20:00 23:25 23:27 Temperature 98.7 F Pulse Rate 66 Respiratory 16 16 16 Rate Blood Pressure 113/51 (mmHg) O2 Sat by Pulse 93 Oximetry 06/17/16 06/17/16 06/17/16 00:00 01:27 07:44 Temperature 98.3 F Pulse Rate 68 Respiratory 16 Rate Blood Pressure 113/41 (mmHg) O2 Sat by Pulse 93 90 Oximetry 06/17/16 06/17/16 08:00 16:02 Temperature Pulse Rate 63 Respiratory 16 Rate Blood Pressure 101/41 (mmHg) O2 Sat by Pulse 92 Oximetry Oxygen Devices in Use Now: Nasal Cannula - 3L Appearance: NAD, sitting up in a chair. Eyes: No Scleral Icterus, PERRLA Ears/Nose/Mouth/Throat: NL Teeth, Lips, Gums, Mucous Membranes Moist Neck: NL Appearance and Movements; NL JVP, Trachea Midline Respiratory: Symmetrical Chest Expansion and Respiratory Effort, Clear to Auscultation - , diminished. Cardiovascular: NL Sounds; No Murmurs; No JVD, RRR Abdominal: NL Sounds; No Tenderness; No Distention - Bowel sounds present Extremities: No Edema Skin: No Rash or Ulcers Neurological: Alert and Oriented x 3, NL Muscle Strength and Tone Lines/Tubes/Other Access: Clean, Dry and Intact Peripheral IV - site benign. Nutrition: Taking PO's Result Diagrams: 06/17/16 07:41 06/17/16 11:41 Additional Lab and Data: Microbiology and Other Data: Microbiology 06/14/16 10:15 Gram Stain - Final Sputum Expectorated Diagnostic Imaging: CT Chest - consolidation in R lung field and patchy infiltrate in L lung field Assess/Plan/Problems-Billing Assessment: Mr. Al is an 80 yo gentleman with a history of mitral valve repair, Vtach with defibrillator in place, afib and anticoagulated, HTN, HLD, aortic stenosis and possible history of sarcoidosis who presented with persistent dyspnea secondary to possible pneumonia after failing outpatient antibiotics vs sarcoidosis. - Patient Problems (1) Pneumonia Code(s): J18.9 - PNEUMONIA, UNSPECIFIED ORGANISM SNOMED Code(s): 667076506 Comment: Patient has been treated with Levaquin and Vantin without improvement. Hypoxic with ambulation, continues to require supplemental O2. Large primarily R sided infiltrate, no fever or leukocytosis. Suspect this infiltrate may represent sarcoidosis and not PNA, appreciate Pulm input. Plan to perform Bronchoscopy on Saturday. Appreciate ID input. Continue ceftriaxone and vancomycin. Last dose azithromycin will be today. (2) Atrial fibrillation Code(s): I48.91 - UNSPECIFIED ATRIAL FIBRILLATION SNOMED Code(s): 05587685 Comment: Currently in sinus, cont BB and amiodarone. Anticoagulated with coumadin, INR therapeutic. Will follow INR. (3) V-tach Code(s): I47.2 - VENTRICULAR TACHYCARDIA SNOMED Code(s): 74209752 Comment: H/o Vtach with defibrillator in place (4) Aortic stenosis Code(s): I35.0 - NONRHEUMATIC AORTIC (VALVE) STENOSIS SNOMED Code(s): 10835798 Comment: Mild (5) H/O mitral valve repair Code(s): Z98.890 - OTHER SPECIFIED POSTPROCEDURAL STATES SNOMED Code(s): 802253867 (6) HTN (hypertension) Code(s): I10 - ESSENTIAL (PRIMARY) HYPERTENSION SNOMED Code(s): 10936136 Comment: BP controlled. (7) DVT prophylaxis Code(s): XYJ9035 - SNOMED Code(s): 035174480 Comment: Coumadin (8) Full code status Code(s): Z78.9 - OTHER SPECIFIED HEALTH STATUS SNOMED Code(s): 914233717 Status and Disposition: Inpatient, continues to require supplemental O2. Pending bronchoscopy. Plan to discharge to home when medically stable.
[2016-06-17] MEDS ORDERED: Warfarin TAB(*) 2.5 MG PO SCH (17:00)
[2016-06-17] MEDS ORDERED: Warfarin TAB(*) 2 MG PO ONE (17:00)
[2016-06-17] MEDS: Atorvastatin* 20 MG TAB PO SCH (22:18)
[2016-06-17] MEDS: Acetaminophen TAB* 325 MG PO PRN (22:19)
[2016-06-18] MEDS: Vancomycin(*) 1,250 MG in NS 0.9% 250 ML* 250 ML IVPB SCH (00:50)
[2016-06-18] MEDS: traMADol TAB* 50 MG PO PRN (00:55)
[2016-06-18 05:53] LABS: Hematocrit 29 % (42-52); Hemoglobin 9.5 g/dl (14.0-18.0); Mean Corpuscular HGB Conc 33 g/dl (31-36); Mean Corpuscular Hemoglobin 29 pg (27-31); Mean Corpuscular Volume 87 fL (80-94); Mean Platelet Volume 7 um3 (7.4-10.4); Red Blood Count 3.29 10^6/ul (4.0-5.4); Red Cell Distribution Width 16 % (10.5-15); White Blood Count 6.4 10^3/ul (3.5-10.8)
[2016-06-18 06:09] LABS: C Reactive Protein 45.51 mg/L (< 5.00); Calcium 8.1 mg/dL (8.6-10.3); EGFR Non-African American 71.5 (>60); Potassium 4.1 mmol/L (3.5-5.0)
[2016-06-18] MEDS: Cyanocobalamin TAB* 500 MCG PO SCH (09:01)
[2016-06-18] MEDS: Amiodarone TAB* 200 MG PO SCH (09:01)
[2016-06-18] MEDS: Diltiazem CD CAP* 120 MG PO SCH (09:01)
[2016-06-18] MEDS: Metoprolol Succinate XL TAB* 50 MG PO SCH (09:02)
[2016-06-18] MEDS: Multivitamins/Minerals TAB PO SCH (09:21)
--- NOTE | 2016-06-18 09:57 | PN ---
Subjective Date of Service: 06/18/16 Interval History: Patient seen and examined at bedside. Pt states that he continues to have shortness of breath and easily drops his O2 level with ambulation and activity. Pt states that he was able to march in place for 3 minutes this morning and his O2 went from 92% down to 89% on 3 L via NC. Pt states that he feels like his breathing is starting staying the same and not getting better. Denies fever, chills, chest discomfort, N/V/D. Family History: Unchanged from Admission Social History: Unchanged from Admission Past Medical History: Unchanged from Admission Objective Active Medications: Acetaminophen (Tylenol Tab*) 650 mg PO Q4HR PRN Reason: PAIN Amiodarone HCl (Cordarone Tab*) 100 mg PO DAILY RUIZ Atorvastatin Calcium (Lipitor*) 20 mg PO BEDTIME RUIZ Cyanocobalamin (Vitamin B12 Tab*) 500 mcg PO BID RUIZ Diltiazem HCl (Cardizem Cd Cap*) 120 mg PO BID [facility] Ceftriaxone Sodium 1,000 mg/ (Sodium Chloride) 50 mls @ 200 mls/hr IVPB Q24H RUIZ Metoprolol Succinate (Toprol Xl Tab*) 50 mg PO DAILY [facility] Multivitamins/Minerals (Theragran/Minerals Tab*) 1 tab PO DAILY RUIZ Pharmacy Profile Note (Coumadin Per Pharmacy*) 1 note FOLLOW UP .PER PHARMACY PROTOC RUIZ Reason: Protocol Tramadol HCl (Ultram*) 50 mg PO Q6HR PRN Reason: PAIN Warfarin Sodium (Coumadin Tab(*)) 5 mg PO 1700 ONE Stop: 06/18/16 17:01 Vital Signs 06/17/16 06/17/16 06/17/16 16:02 20:00 23:36 Temperature 97.7 F Pulse Rate 63 64 Respiratory 16 18 Rate Blood Pressure 101/41 98/40 (mmHg) O2 Sat by Pulse 92 91 Oximetry 06/18/16 06/18/16 06/18/16 00:55 02:55 03:25 Temperature Pulse Rate Respiratory 18 18 Rate Blood Pressure (mmHg) O2 Sat by Pulse 92 Oximetry 06/18/16 08:47 Temperature Pulse Rate Respiratory Rate Blood Pressure (mmHg) O2 Sat by Pulse 90 Oximetry Oxygen Devices in Use Now: Nasal Cannula - 3L Eyes: No Scleral Icterus, PERRLA Ears/Nose/Mouth/Throat: NL Teeth, Lips, Gums, Mucous Membranes Moist Neck: NL Appearance and Movements; NL JVP, Trachea Midline Respiratory: Symmetrical Chest Expansion and Respiratory Effort, - - Lung sounds clear, with few crackles in the right base. Cardiovascular: RRR - Grade 2-3/6 systolic murmur Abdominal: NL Sounds; No Tenderness; No Distention Extremities: No Edema Skin: No Rash or Ulcers Neurological: Alert and Oriented x 3, NL Muscle Strength and Tone Lines/Tubes/Other Access: Clean, Dry and Intact Peripheral IV - site benign. Nutrition: Taking PO's Result Diagrams: 06/18/16 05:25 06/18/16 05:25 Additional Lab and Data: Microbiology and Other Data: Microbiology 06/14/16 10:15 Gram Stain - Final Sputum Expectorated Diagnostic Imaging: CT Chest - consolidation in R lung field and patchy infiltrate in L lung field Assess/Plan/Problems-Billing Assessment: Mr. Al is an 80 yo gentleman with a history of mitral valve repair, Vtach with defibrillator in place, afib and anticoagulated, HTN, HLD, aortic stenosis and possible history of sarcoidosis who presented with persistent dyspnea secondary to possible pneumonia after failing outpatient antibiotics vs sarcoidosis. - Patient Problems (1) Pneumonia Code(s): J18.9 - PNEUMONIA, UNSPECIFIED ORGANISM SNOMED Code(s): 648412962 Comment: - Hypoxic with ambulation, continues to require supplemental O2. - Large primarily R sided infiltrate, no fever or leukocytosis. Suspect this infiltrate may represent sarcoidosis and not PNA, appreciate Pulm input. Plan to perform Bronchoscopy on Saturday. - Appreciate ID input. Continue ceftriaxone with last dose today for a total of 5 days treatment. Vancomycin stopped. Last dose azithromycin was yesterday. (2) Atrial fibrillation Code(s): I48.91 - UNSPECIFIED ATRIAL FIBRILLATION SNOMED Code(s): 81789576 Comment: Currently in sinus, cont BB and amiodarone. Anticoagulated with coumadin, INR therapeutic. Will follow INR. (3) V-tach Code(s): I47.2 - VENTRICULAR TACHYCARDIA SNOMED Code(s): 92080205 Comment: H/o Vtach with defibrillator in place (4) Aortic stenosis Code(s): I35.0 - NONRHEUMATIC AORTIC (VALVE) STENOSIS SNOMED Code(s): 36301862 Comment: Mild (5) H/O mitral valve repair Code(s): Z98.890 - OTHER SPECIFIED POSTPROCEDURAL STATES SNOMED Code(s): 658948201 (6) HTN (hypertension) Code(s): I10 - ESSENTIAL (PRIMARY) HYPERTENSION SNOMED Code(s): 30017576 Comment: BP controlled. (7) DVT prophylaxis Code(s): KAG4459 - SNOMED Code(s): 646252679 Comment: Coumadin (8) Full code status Code(s): Z78.9 - OTHER SPECIFIED HEALTH STATUS SNOMED Code(s): 372237740 Status and Disposition: Inpatient, continues to require supplemental O2. Pending bronchoscopy. Plan to discharge to home when medically stable, possibly later today.
[2016-06-18] MEDS: cefTRIAXone VIAL(*) 1,000 MG in NS 0.9% 50 ML* 50 ML IVPB SCH (14:41)
--- NOTE | 2016-06-18 15:17 | PN ---
Progress Note - Progress Note Note: Pulm consult f/u note 06/18/16. Pt seen and examined at bedside earlier today. Pt reported slight improvement in breathing today. He is needing 3 L O2. Denies cough or sputum production Active Medications Generic Name Dose Route Start Last Admin Trade Name Freq PRN Reason Stop Dose Admin Acetaminophen 650 mg 06/13/16 16:52 06/17/16 22:19 Tylenol Tab* PO 650 mg Q4HR PRN Administration PAIN Amiodarone HCl 100 mg 06/14/16 09:00 06/18/16 09:01 Cordarone Tab* PO 100 mg DAILY RUIZ Administration Atorvastatin Calcium 20 mg 06/13/16 21:00 06/17/16 22:18 Lipitor* PO 20 mg BEDTIME RUIZ Administration Cyanocobalamin 500 mcg 06/13/16 21:00 06/18/16 09:01 Vitamin B12 Tab* PO 500 mcg BID RUIZ Administration Diltiazem HCl 120 mg 06/13/16 21:00 06/18/16 09:01 Cardizem Cd Cap* PO 120 mg BID RUIZ Administration Ceftriaxone Sodium 1,000 mg/ 50 mls @ 200 mls/hr 06/14/16 15:00 06/18/16 14: 41 Sodium Chloride IVPB 06/18/16 16:00 200 mls/hr Q24H RUIZ Administration Metoprolol Succinate 50 mg 06/14/16 09:00 06/18/16 09:02 Toprol Xl Tab* PO 50 mg DAILY RUIZ Administration Multivitamins/Minerals 1 tab 06/14/16 09:00 06/18/16 09:21 Theragran/Minerals Tab* PO 1 tab DAILY RUIZ Administration Pharmacy Profile Note 1 note 06/15/16 16:00 Coumadin Per Pharmacy* FOLLOW UP .PER PHARMACY PROTOC RUIZ Protocol Tramadol HCl 50 mg 06/13/16 16:52 06/18/16 00:55 Ultram* PO 50 mg Q6HR PRN Administration PAIN Warfarin Sodium 5 mg 06/18/16 17:00 Coumadin Tab(*) PO 06/18/16 17:01 1700 ONE Vital Signs Temp Pulse Resp BP Pulse Ox 97.6 F 79 18 128/42 93 06/18/16 07:19 06/18/16 07:19 06/18/16 08:00 06/18/16 07:19 01/16/17 13:05 Gen: Pt in NAD Eyes: No Scleral Icterus, PERRLA, NL Teeth, Lips, Gums, Mucous Membranes Moist Neck: NL Appearance and Movements; NL JVP, Trachea Midline Respiratory: Symmetrical Chest Expansion and Respiratory Effort, few crackles at bases b/l. Cardiovascular: RRR, Grade 2-3/6 systolic murmur Abdominal: NL Sounds; No Tenderness; No Distention Extremities: No Edema Skin: No Rash or Ulcers Neurological: Alert and Oriented x 3, NL Muscle Strength and Tone Laboratory Results - last 24 hr 06/18/16 06/18/16 06/18/16 05:25 05:25 05:25 WBC 6.4 RBC 3.29 L Hgb 9.5 L Hct 29 L MCV 87 MCH 29 MCHC 33 RDW 16 H Plt Count 255 MPV 7 L Neut % (Auto) 73.1 Lymph % (Auto) 16.3 L [place] % (Auto) 7.4 Eos % (Auto) 2.1 Baso % (Auto) 1.1 Absolute Neuts (auto) 4.7 Absolute Lymphs (auto) 1.0 Absolute Monos (auto) 0.5 Absolute Eos (auto) 0.1 Absolute Basos (auto) 0.1 Absolute Nucleated RBC 0 Nucleated RBC % 0 INR (Anticoag Therapy) 2.63 H Sodium 135 Potassium 4.1 Chloride 104 Carbon Dioxide 27 Anion Gap 4 BUN 19 Creatinine 1.00 Est GFR ( Amer) 92.0 Est GFR (Non-Af Amer) 71.5 BUN/Creatinine Ratio 19.0 Glucose 85 Calcium 8.1 L C-Reactive Protein 45.51 H Microbiology and Other Data: Microbiology 06/14/16 10:15 Gram Stain - Final Sputum Expectorated Diagnostic Imaging: CT Chest - consolidation in R lung field and patchy infiltrate in L lung field I/R: Pt is an 80 yo gentleman with a history of mitral valve repair, Vtach with defibrillator in place, afib on anticoagulation, HTN, HLD, aortic stenosis with clinical suspicion of sarcoidosis admitted for evaluation of SOB, hypoxia being treated for PNA after failing out pt therapy . Pt noted to have worsening mediastinal adenopathy and dense opacities on CT chest Pt completed course of abx Continues to be hypoxic though improving slowly Plan for bronchoscopy/EBUS on Saturday Procedure was discussed in detail Will perform EBUS and if inconclusive will do Transbronchial biopsy Associated risks and benefits were discussed in detail c/w O2 supplementation Will hold Coumadin for procedure Will check PT/INR on Saturday prior to the procedure INR is above 2 today No LOvenox needed as will be able to restart Coumadin Saturday D/w Marla Barros NP
[2016-06-18 16:34] VITALS: BP 103/54
[2016-06-18] MEDS ORDERED: Warfarin TAB(*) 5 MG PO ONE (17:00)
--- NOTE | 2016-06-18 23:22 | DS ---
DISCHARGE SUMMARY: DATE OF ADMISSION: 06/13/16 DATE OF DISCHARGE: 06/18/16 ATTENDING PHYSICIAN: Pam Louis MD* (dictated by Yoselin Patel NP) PRIMARY CARE PROVIDER: Terry Kerr MD PRIMARY DIAGNOSIS: Persistent infiltrative changes with concern for pneumonia and/or sarcoidosis. SECONDARY DIAGNOSES: 1. Atrial fibrillation. 2. Hypertension. 3. Hyperlipidemia. CONSULTATIONS WHILE IN THE HOSPITAL: 1. Eleuterio Xiong MD with Infectious Disease. 2. Raiza Moore MD with Pulmonology. STUDIES WHILE IN THE HOSPITAL: Chest CT on 06/13/16. Radiologist's impression : Bilateral airspace disease and consolidation predominantly in the right upper lobe and right lower lobe; however, small areas of consolidation are noted in the right middle lobe and left lower lobe posterior. This may represent pneumonia. Further followup is suggested bronchoscopy should be considered. Enlarged pericardial node measuring up to 2.2 cm. This is larger than was present on previous exam on 06/09/12. DISCHARGE MEDICATIONS: Continued home medications: 1. Acetaminophen 650 mg oral every 4 hours as needed for pain. 2. Multivitamin 1 tablet oral daily. 3. Magnesium oxide 400 mg oral daily. 4. Diltiazem HCL 120 mg oral twice daily. 5. Atorvastatin 20 mg oral daily at bedtime. 6. Viagra 50 mg oral daily as needed for erectile dysfunction. 7. Fosamax 70 mg oral weekly. 8. Metoprolol succinate XL 50 mg oral daily. 9. Eye vitamins 1 tablet oral twice daily. 10. Ergocalciferol 50,000 units oral monthly. 11. Amiodarone 100 mg oral daily. 12. Vitamin B12 500 mcg oral twice daily. 13. Glucosamine 1000 mg oral daily. 14. Calcium citrate 640 mg oral daily. 15. Tramadol 50 mg oral every 6 hours as needed for pain. 16. Naproxen 220 mg oral 1 to 2 times weekly as needed for pain. Discontinued home medication: The patient's warfarin has been discontinued in preparation for his bronchoscopy. HISTORY OF PRESENT ILLNESS/HOSPITAL COURSE: Mr. Al is an 80-year-old male with a past medical history significant for mitral valve repair and ventricular tachycardia, status post defibrillator placement and who presented to the hospital with complaints of dyspnea on exertion. Mr. Al reports feeling unwell since [place] when he noticed worsening dyspnea with exertion on stairs. Typically, Mr. Al is very active participating in [employer]Fit 3 times weekly as well as swimming. The shortness of breath was unexpected finding for him. He was evaluated by Dr. Kerr's office in late May at which time, he was diagnosed with bronchitis and started on Advair. The patient continued to feel unwell and presented to the emergency room on 06/04/16 at which time, he was diagnosed with pneumonia based off of chest x-ray finding of greater than last pulmonary inflammatory infiltrates. The patient was discharged from the emergency room on oral Levaquin. On 06/05/16, the patient was seen in followup at Dr. Clinton's office and was felt that the patient's dyspnea was not related to cardiac nature, but was more likely related to pneumonia. The patient continued to feel unwell and presented again to the emergency room on at which time, he continued to have persistent shortness of breath and was admitted for community-acquired pneumonia. The patient stayed overnight, received IV antibiotics and was adamantly requesting to be discharged the following day and the patient was discharged to complete a course Vantin. The patient reports completing the course of Vantin and feeling a little better, but over the proceeding days, the patient began to feel worse and he was seen in followup by Dr. Kerr, had labs drawn that showed no leukocytosis or significant findings, but based off the patient's persistent symptoms, it was recommended that he present to the emergency room for further evaluation. While in the emergency room, the patient had chest x-ray showing a persistent infiltrate and a chest CT showing "bilateral airspace disease and consolidation predominantly in the right upper lobe and right lower lobe; however, smaller areas of consolidation are noted in the middle lobe and left lower lobe posteriorly. This may represent pneumonia. Further followup is suggested. Bronchoscopy should be considered." The patient continued to have no leukocytosis and be afebrile. His vital signs were stable. Based off the patient's presentation and concern for persistent pneumonia and significant dyspnea on exertion, Hospitalists were asked to evaluate the patient. While in the hospital, there was concern for a possibility of an atypical pneumonia. The patient continued to have no leukocytosis and was afebrile. He did report some cough with minimal mucus production that during his course of his hospitalization had improved. The patient's primary complaint was dyspnea on exertion. The patient who is normally active was having difficulty walking in his room for several minutes without his oxygen level decreasing. The patient was requiring supplemental oxygen. The patient was seen in consultation by Dr. Xiong with Infectious Disease who felt that the differential diagnoses could include resulting bacterial pneumonia or a resolving viral pneumonia, but it was felt that this was not a new infection and this was a community-acquired pneumonia and not a hospital-acquired pneumonia. It was felt that sarcoidosis, which had been mentioned in the past, as a possible cause for the patient's cardiomyopathy could also be in the differentials with the patient presenting with a persistent infiltrate and lymphadenopathy. It was recommended that the patient be continued on vancomycin. He was started on ceftriaxone and azithromycin. Dr. Moore with Pulmonology also consulted on the patient due to the possibility of sarcoidosis. Dr. Moore felt this was highly suspicious for sarcoidosis with the possibility of cardiac involvement. In the past, the patient had declined workup. 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 She recommended continuation of supplemental oxygen and the patient be continued on IV antibiotics given his sudden change of clinical status. She planned to do outpatient bronchoscopy with EBUS on 06/20/16 with the patient to get biopsies to determine if the patient had pulmonary sarcoidosis and discuss the treatment plan with the patient. Over the patient's stay, he continued to require supplemental oxygen from 2 to 4 L via nasal cannula. The patient was often noted to desat after several minutes of activity whether be marching in place or walking in his room. The patient then would require several minutes to recover back into the mid 90s. The patient completed a 5-day course of azithromycin. The patient completed a 4-day course of vancomycin and completed a 5- day course of ceftriaxone IV during his hospital stay. The patient felt his dyspnea was improving may be slightly or staying the same. It was felt that the patient was able to be discharged to home with plans to return for outpatient bronchoscopy on Saturday. Again, the patient has remained afebrile during his hospital stay. He has had no leukocytosis. Mr. Al is stable for discharge to home today. Vital signs are as follows: Temperature 97.8, heart rate 63, respiratory rate 17, O2 sat 95% on 3 L via nasal cannula, blood pressure 103/54. DISCHARGE PLAN: Mr. lA will be discharged to home. Activity as tolerated. He should be on a regular diet. He has been setup with [facility] for oxygen 2 to 3 L via nasal cannula. As far as the patient's pneumonia, he has completed a course of IV antibiotics while he is in the hospital and needs no further antibiotics at this time. As far as the patient's suspected sarcoidosis , he has been scheduled for an outpatient bronchoscopy on 06/20/16. He should follow with Dr. Moore per her recommendations after his bronchoscopy. The patient should be seen by his primary care provider, Dr. Terry Kerr, this week. As far as the patient's history of atrial fibrillation, he should be continued on his amiodarone, diltiazem, and metoprolol. His warfarin will be held today on 06/18/16 and tomorrow 06/19/16 in preparation for his bronchoscopy. The patient should then resume his Coumadin when okayed by Dr. Moore. The patient has been instructed to return to the emergency room for complaints of worsening shortness of breath or dyspnea and chest discomfort. This is a summarized report of a complex medical history and hospital stay. For further details, please see the entire medical record. TIME SPENT: Time for this discharge was 50 minutes, and 25 minutes were spent face- to-face with the patient discussing discharge plans and instructions. CONDITION ON DISCHARGE: Stable. Reviewed by TETE BLACKBURN 06/30/16 [id number] CC: Terry Kerr MD; Dr. Moore* [id number]/[facility] #: [id number] MTDD
[2016-06-19] MEDS ORDERED: Vancomycin Trough Check NOTE FOLLOW UP ONE (12:30)
== END 2016-06-18 16:25 | disposition home or self-care (01) | DRG 194 ==
LOC: ED 12:59 → MED 16:47
PROVIDERS: ADMIT Internal Medicine; ATTEND Internal Medicine
DX: J18.9 Pneumonia, unspecified organism (principal); I47.2 Ventricular tachycardia; D86.9 Sarcoidosis, unspecified; I48.91 Unspecified atrial fibrillation; I10 Essential (primary) hypertension; E78.5 Hyperlipidemia, unspecified; R91.1 Solitary pulmonary nodule; I35.0 Nonrheumatic aortic (valve) stenosis; R09.02 Hypoxemia; Z79.1 Long term (current) use of non-steroidal anti-inflammatories (NSAID); Z79.01 Long term (current) use of anticoagulants; Z79.899 Other long term (current) drug therapy
CPT/HCPCS: 36415; 71020; 71250; 80048; 80053; 80202; 82565; 83605; 84145; 84484; 84520; 85014; 85018; 85025; 85049; 85610; 86140; 87040; 87070; 87205; 87899; 93005; 94760; A9270-GY; J0456; J0696; J2543; J3370

== ENCOUNTER → 2016-06-20 12:05 | Day surgery (SDC) | payer MEDICARE, OTHER ==
[~2016-06-20 12:05] MED LIST: Buffered Lidocaine 1% SYR 3ML* 3 ML/SYR SYRINGE INTRADERM ONE; Cisatracurium* 2 MG/ML MDV 10 ML ONE; Dexamethasone IV* 4 MG/ML 1 ML (4 MG) ONE; EPHEDrine (Pressors)* 50 MG/ML VIAL ONE; Famotidine IV* 10 MG/ML 2 ML (20 mg) IV ONE; Famotidine IV* 10 MG/ML 2 ML (20 mg) ONE; HYDROmorphone INJ* 1 MG/ML CARPUJECT SYRINGE IV PRN; KETAMINE HCL* 50 MG/ML 10 ML VIAL ONE; Levalbuterol 0.63MG/3ML NEB INH ONE; Levalbuterol 0.63MG/3ML NEB INH PRN; Levalbuterol 1.25MG/0.5ML NEB ONE; Levalbuterol HFA INHALER* 1 PUFF MDI ONE; Lidocaine 1% INJ* 10 MG/ML 30 ML SDV ONE; Lidocaine 2% MPF* 2 ML VIAL ONE; Metoclopramide TAB* 10 MG ONE; Metoclopramide TAB* 10 MG PO ONE; Midazolam* 1 MG/ML 5 ML VIAL (5 MG) ONE; Ondansetron INJ* 2 MG/ML VIAL IV PRN; Ondansetron INJ* 2 MG/ML VIAL ONE; Propofol* 10 MG/ML 20 ML BTL IV PUSH ONE; fentaNYL* 50 MCG/ML 2 ML VIAL (100 MCG VIAL) IV PRN; fentaNYL* 50 MCG/ML 2 ML VIAL (100 MCG VIAL) ONE; oxyCODONE/Acetamin 5/325 MG* TAB PO PRN
[2016-06-20 19:14] VITALS: BP 111/58
--- NOTE | 2016-06-21 01:46 | PRO ---
BRONCHOSCOPY REPORT: DATE OF PROCEDURE: 06/20/16 PROCEDURE PERFORMED: Bronchoscopy with endobronchial ultrasound-guided fine- needle aspiration. PREPROCEDURAL DIAGNOSES: Mediastinal adenopathy, lung infiltrates, hypoxemic respiratory failure, and pneumonia recently. ANESTHESIA: General anesthesia with endotracheal tube 8.0. ANESTHESIOLOGIST: Dr. Easton. PROCEDURE IN DETAIL: Informed consent was obtained from the patient prior to the procedure after all the risks and benefits were thoroughly explained. A flexible Olympus bronchoscope was used prior to the procedure for airway inspection. Thick white secretions were noted and were suctioned out. EBUS bronchoscope was then inserted. Station R4 lymph node was accessed with 5 passes. Adequate lymphatic tissue was seen. No malignant cells were seen. No granulomas were noted. Rapid on-site evaluation revealed small lymphocytes. Station R10 lymph node was accessed with 4 passes. Rapid on-site evaluation revealed adequate passes with lymphatic tissue. No granulomas were noted. Specimen was placed in RPMI for flow cytometry. The patient was extubated and was seen in optimal condition. No complications occurred during the procedure. [id number]/[facility] #: [id number] [facility] CENTERGarfield
== END | disposition home or self-care (01) ==
LOC: OR 12:05
PROVIDERS: ATTEND Internal Medicine
DX: R59.0 Localized enlarged lymph nodes (principal); R91.8 Other nonspecific abnormal finding of lung field; I48.2 Chronic atrial fibrillation; Z79.01 Long term (current) use of anticoagulants; I10 Essential (primary) hypertension; I35.0 Nonrheumatic aortic (valve) stenosis
CPT/HCPCS: 36415; 85610; 88172; 88173; 88184; 88185; 88188; 88305; A9270-GY; J1100; J2250; J2405; J2704; J3010

== ENCOUNTER → 2016-11-24 10:56 | Emergency (ER) | payer MEDICARE ==
[~2016-11-24 10:56] MED LIST changes: -Buffered Lidocaine 1% SYR 3ML* 3 ML/SYR SYRINGE INTRADERM ONE; -Cisatracurium* 2 MG/ML MDV 10 ML ONE; -Dexamethasone IV* 4 MG/ML 1 ML (4 MG) ONE; -EPHEDrine (Pressors)* 50 MG/ML VIAL ONE; -Famotidine IV* 10 MG/ML 2 ML (20 mg) IV ONE; -Famotidine IV* 10 MG/ML 2 ML (20 mg) ONE; -HYDROmorphone INJ* 1 MG/ML CARPUJECT SYRINGE IV PRN; -KETAMINE HCL* 50 MG/ML 10 ML VIAL ONE; -Levalbuterol 0.63MG/3ML NEB INH ONE; -Levalbuterol 0.63MG/3ML NEB INH PRN; -Levalbuterol 1.25MG/0.5ML NEB ONE; -Levalbuterol HFA INHALER* 1 PUFF MDI ONE; -Lidocaine 1% INJ* 10 MG/ML 30 ML SDV ONE; -Lidocaine 2% MPF* 2 ML VIAL ONE; -Metoclopramide TAB* 10 MG ONE; -Metoclopramide TAB* 10 MG PO ONE; -Midazolam* 1 MG/ML 5 ML VIAL (5 MG) ONE; +NS 0.9% 1000 ML* 1,000 ML IV ONE; -Ondansetron INJ* 2 MG/ML VIAL IV PRN; -Ondansetron INJ* 2 MG/ML VIAL ONE; +Pantoprazole IV* 40 MG IV ONE; +Pantoprazole IV* 80 MG in NS 0.9% 250 ML* 250 ML IV SCH; -Propofol* 10 MG/ML 20 ML BTL IV PUSH ONE; -fentaNYL* 50 MCG/ML 2 ML VIAL (100 MCG VIAL) IV PRN; -fentaNYL* 50 MCG/ML 2 ML VIAL (100 MCG VIAL) ONE; -oxyCODONE/Acetamin 5/325 MG* TAB PO PRN
[2016-11-24 12:49] LABS: Hematocrit 31 % (42-52); Hemoglobin 9.9 g/dl (14.0-18.0); Mean Corpuscular HGB Conc 32 g/dl (31-36); Mean Corpuscular Hemoglobin 28 pg (27-31); Mean Corpuscular Volume 87 fL (80-94); Mean Platelet Volume 9 um3 (7.4-10.4); Red Blood Count 3.59 10^6/ul (4.0-5.4); Red Cell Distribution Width 19 % (10.5-15); White Blood Count 6.9 10^3/ul (3.5-10.8)
[2016-11-24 13:00] LABS: Albumin 3.2 g/dL (3.2-5.2); BUN/Creatinine Ratio 29.3 (8-20); Calcium 8.3 mg/dL (8.6-10.3); EGFR African American 72.5 (>60); EGFR Non-African American 56.3 (>60); Globulin 3.1 g/dL (2-4); Potassium 4.1 mmol/L (3.5-5.0); Total Bilirubin 0.5 mg/dL (0.2-1.0); Total Protein 6.3 g/dL (6.4-8.9)
--- NOTE | 2016-11-24 16:06 | ED ---
Liang Steen Auryana, scribed for Oscar Almazan MD on 11/24/16 at 1325 . GI/ HPI - HPI Summary HPI Summary: 80 year old male presents with melena starting 3 days ago. Patient reports that 4 days ago he had loose stools, took pepto, and has increased intestinal gas. The following day, he had streaks of black stool intertwined with normal colored stool. Patient denies any pain and states he "feels fine" otherwise. He reports a normal appetite, and normal urination. Last BM today - urge to defecate with gas, reports "not nice". 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 PMHx is signifcant for stomach ulcer with gastric perforation - no Rx - Dr. Venegas. PCP - Dr. Kerr - recommended patient be seen here for evaluation. - History of Current Complaint Chief Complaint: EDGIBleed Time Seen by Provider: 11/24/16 11:45 Stated Complaint: POSSIBLE BLOOD IN STOOL Hx Obtained From: Patient Onset/Duration: Started Days Ago - 4 Timing: Constant Severity: Mild Current Severity: Mild Pain Intensity: 0 - denies pain Associated Signs and Symptoms: Positive: Black Tarry Stool, Melena. Negative: Change in Appetite - Additional Pertinent History Primary Care Physician: [id number] - Allergy/Home Medications Allergies/Adverse Reactions: Allergies Allergy/AdvReac Type Severity Reaction Status Date / Time No Known Allergies Allergy Verified 11/24/16 11:02 PMH/Surg Hx/FS Hx/Imm Hx Endocrine/Hematology History: Denies: Hx Diabetes, Hx Systemic Lupus Erythematosus Cardiovascular History: Reports: Hx Auto Implanted Cardiovert Defib, Hx Cardiomegaly - CARDIOMYOPATHY, Hx Coronary Artery Disease, Hx Hypertension, Hx Pacemaker/ICD - AICD, [employer] FIFIBRILATOR, Hx Valvular Heart Disease - MITRAL VALVE REPAIR, Other Cardiovascular Problems/Disorders - mitral regurgitation, A FIB, AORTIC STENOSIS, V TACH, TORSADES DE POINTES Denies: Hx Congestive Heart Failure Respiratory History: Reports: Hx Pneumonia, Other Respiratory Problems/ Disorders - FUSO-BACTERIUM INFECTION-3 YEARS AGO- [place] BY DR. RODRÍGUEZ GI History: Reports: Hx Diverticulosis, Hx Ulcer, Other GI Disorders - 1974 stomach repair OF ULCER History: Reports: Hx Benign Prostatic Hyperplasia, Other Problems/ Disorders Denies: Hx Dialysis, Hx Renal Disease Musculoskeletal History: Reports: Hx Arthritis - BACK AND HIPS, Hx Back Problems , Other Musculoskeletal History - spinal stenosis Denies: Hx Rheumatoid Arthritis Sensory History: Reports: Hx Cataracts - BILATERAL, Hx Contacts or Glasses Denies: Hx Hearing Aid Opthamlomology History: Reports: Hx Cataracts - BILATERAL, Hx Contacts or Glasses Neurological History: Denies: Hx Headaches, Hx Transient Ischemic Attacks (TIA), Other Neuro Impairments/Disorders Psychiatric History: Denies: Hx Panic Disorder - Cancer History Hx Chemotherapy: No - Surgical History Surgery Procedure, Year, and Place: DEFIBRILATOR , 2013 , MITRAL VALVE REPAIR , 2004 , STOMACH ULCER REPAIR [id number] , BILAT SHOULDER REPAIR, 1988, 2006. 2016, COLON RESECTION. 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 Hx Substance Use: No Substance Use Type: Reports: None Substance Use Comment - Amount & Last Used: SINCE 1987 Hx Tobacco Use: No Smoking Status (MU): Former Smoker Type: Cigarettes Amount Used/How Often: 2ppd Length of Time of Smoking/Using Tobacco: 35 years Have You Smoked in the Last Year: No Review of Systems Constitutional: Negative Negative: Fever Eyes: Negative ENT: Negative Cardiovascular: Negative Respiratory: Negative Positive: Other - melena with intestinal gas Genitourinary: Negative Musculoskeletal: Negative Skin: Negative Neurological: Negative Psychological: Normal All Other Systems Reviewed And Are Negative: Yes Physical Exam Triage Information Reviewed: Yes Vital Signs On Initial Exam: Initial Vitals Temp Pulse Resp BP Pulse Ox 97.4 F 88 16 129/67 96 11/24/16 10:59 11/24/16 10:59 11/24/16 10:59 11/24/16 10:59 11/24/16 10:59 Vital Signs Reviewed: Yes Appearance: Positive: Well-Appearing, No Pain Distress, Well-Nourished Skin: Positive: Warm, Skin Color Reflects Adequate Perfusion, Dry Head/Face: Positive: Normal Head/Face Inspection Eyes: Positive: Normal ENT: Positive: Normal ENT inspection Neck: Positive: Supple, Nontender Respiratory/Lung Sounds: Positive: Clear to Auscultation, Breath Sounds Present Cardiovascular: Positive: RRR Abdomen Description: Positive: Nontender, Soft Bowel Sounds: Positive: Present Musculoskeletal: Positive: Normal, Strength/ROM Intact Neurological: Positive: Normal, Sensory/Motor Intact Psychiatric: Positive: Normal, Affect/Mood Appropriate - Landry Coma Scale Coma Scale Total: 15 Diagnostics - Vital Signs Vital Signs Temp Pulse Resp BP Pulse Ox 11/24/16 11:10 72 92 11/24/16 11:08 129/81 11/24/16 11:01 97.8 F 88 15 129/67 97 11/24/16 10:59 97.4 F 88 16 129/67 96 - Laboratory Lab Results: Lab Results 11/24/16 11/24/16 11/24/16 Range/Units 11:55 11:55 11:55 WBC 6.9 (3.5-10.8) 10^3/ul RBC 3.59 L (4.0-5.4) 10^6/ul Hgb 9.9 L (14.0-18.0) g/dl Hct 31 L (42-52) % MCV 87 (80-94) fL MCH 28 (27-31) pg MCHC 32 (31-36) g/dl RDW 19 H (10.5-15) % Plt Count 186 (150-450) 10^3/ul MPV 9 (7.4-10.4) um3 Neut % (Auto) 81.5 (38-83) % Lymph % (Auto) 10.7 L (25-47) % Salem % (Auto) 6.8 (1-9) % Eos % (Auto) 0.5 (0-6) % Baso % (Auto) 0.5 (0-2) % Absolute Neuts (auto) 5.6 (1.5-7.7) 10^3/ul Absolute Lymphs (auto) 0.7 L (1.0-4.8) 10^3/ul Absolute Monos (auto) 0.5 (0-0.8) 10^3/ul Absolute Eos (auto) 0 (0-0.6) 10^3/ul Absolute Basos (auto) 0 (0-0.2) 10^3/ul Absolute Nucleated RBC 0 10^3/ul Nucleated RBC % 0 INR (Anticoag Therapy) 2.65 H (0.89-1.11) APTT 35.0 (26.0-36.3) seconds Sodium 136 (133-145) mmol/L Potassium 4.1 (3.5-5.0) mmol/L Chloride 109 (101-111) mmol/L Carbon Dioxide 24 (22-32) mmol/L Anion Gap 3 (2-11) mmol/L BUN 36 H (6-24) mg/dL Creatinine 1.23 H (0.67-1.17) mg/dL Est GFR ( Amer) 72.5 (>60) Est GFR (Non-Af Amer) 56.3 (>60) BUN/Creatinine Ratio 29.3 H (8-20) Glucose 190 H (70-100) mg/dL Calcium 8.3 L (8.6-10.3) mg/dL Total Bilirubin 0.50 (0.2-1.0) mg/dL AST 16 (13-39) U/L ALT 13 (7-52) U/L Alkaline Phosphatase 43 (34-104) U/L Total Protein 6.3 L (6.4-8.9) g/dL Albumin 3.2 (3.2-5.2) g/dL Globulin 3.1 (2-4) g/dL Albumin/Globulin Ratio 1.0 (1-3) Result Diagrams: 11/24/16 11:55 11/24/16 11:55 Lab Statement: Any lab studies that have been ordered have been reviewed, and results considered in the medical decision making process. GIGU Course/Dx - Course Course Of Treatment: Mr. Al presented witha C/O black stools for 3 days and otherwise asymptomatic. He was nontoxic in appearance with normal vitals on arrival. He had black stool on rectal exam which was guiac positive and his BUN to creatine ration was up to 36. His hemoglobin was 9.9 which was his normal range. He is on coumadin and his INR was 2.6. He needs to be observed in the hospital in case his bleeding continues or worsens but we have no GI back -up here this weekend. I arranged transfer to [facility] with Dr. Alexander accepting. - Diagnoses Provider Diagnoses: GI bleed - Physician Notifications Discussed Care Of Patient With: Pam Camejo - hospitalist Time Discussed With Above Provider: 14:22 - recommends transfer Instructed by Provider To: Transfer Reason For Transfer: Specialty available at [facility] but not personal trainer. - Critical Care Time Critical Care Time: 30-74 min Discharge - Discharge Plan Condition: Stable Disposition: TRANS HIGHER LVL OF CARE FAC Referrals: Terry Kerr MD [Primary Care Provider] - The documentation as recorded by the Liang kamara Auryana accurately reflects the service I personally performed and the decisions made by me, Oscar Almazan MD.
[2016-11-24 16:08] VITALS: BP 122/68
== END | disposition short-term general hospital (02) ==
LOC: ED 10:56
DX: K92.2 Gastrointestinal hemorrhage, unspecified (principal); K92.1 Melena; F17.210 Nicotine dependence, cigarettes, uncomplicated
CPT/HCPCS: 36415; 80053; 82272; 85025; 85610; 85730; 96365; 99283

== ENCOUNTER 2017-09-15 15:42 | Emergency (ER) | payer MEDICARE ==
--- OUTSIDE RECORDS SUMMARY | 2017-09-15 15:49 | XMS REPORT ---
:1935 External Reference #:[id number] Author Organization [facility] Address [address] [place] [address] Phone [phone] Care Team Providers Name Role Phone Terry Kerr M.D. 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 Active Onset: 03/30/2016 Conjunctival hemorrhage Margy Lovett O.D. 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 Active Onset: 08/19/2017 Conjunctivitis Disha Acuna O.D. 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 all four eyelid margins x every night for 2 weeks Artificial 12/26/ Active Solution 0.2-0.2-1% as [place] Tears 2017 needed Tamiko Chamberlain Preservision 08/15/ Active Capsules Areds 2 1 cap by Camilo Cox 2 2015 mouth Arleo, twice a M.D. day Vitamin D / Active Capsules [id number] Shallish, (Ergocalcifero 0000 Terry M.D. l) Metoprolol / Active Tablets ER 25mg Shallish, Succinate ER 0000 24HR Terry M.D. Multi For Him / Active Capsules Unknown 0000 Calcium 500+D / Active Tablets 500-200mg- Unknown 0000 Unit Glucosamine / Active Packet 4142-9146- Unknown & 0000 800mg-mg-U Chondroiti nit N/Vitamin D Maximum Strength Atorvastatin / Active Tablets 20mg Mauser, Calcium 0000 MD Alexx Vitamin B-12 / Active Tablets 100mcg Unknown 0000 Magnesium / Active Capsules 400mg Unknown Oxide 0000 Fosamax / Active Tablets 70mg Unknown 0000 Plavix / Active Tablets 75mg 1 by Unknown 0000 mouth every day @hs Олег Aspirin / Active Tablets 81mg Unknown 0000 Sotalol HCL / Active Tablets 120mg Unknown 0000 Torsemide / Active Tablets 10mg one Mauser, 0000 tablet Alexx, per day MD Calvillo 09/09/ Hx Suspension 1-0.2% 8ml 1 drop Camilo Pino 2014 - left eye Arleo, 09/15/ twice a M.D. 2015 day Systane Ultra 09/08/ Hx Solution 0.4-0.3% 1 drop Camilo Pino 2014 - left eye Arleo, 12/12/ [id number] M.D. 2014 Vigamox 08/24/ Hx Solution 0.5% 3ml one drop Camilo Pino 2014 - left eye Arleo, 09/15/ three M.D. 2015 times a day , start the day before surgery Ilevro 08/24/ Hx Suspension 0.3% 1 drop Camilo Pino 2014 - left eye Arleo, 12/12/ every M.D. 2014 day Prednisolone 08/24/ Hx Suspension 1% 1 drop Camilo Pino Acetate 2014 - left eye Arleo, 12/12/ every M.D. 2014 day Finasteride / Hx Tablets 5mg Vorha, 0000 - Felice 12/04/ M.D. 2016 Metoprolol 00/ Hx Tablets ER 25mg Mauser, Succinate ER 0000 - 24HR Alexx 08/30/ 2015 Alendronate / Hx Tablets 70mg Shallish, Sodium 0000 - Terry M.DYessy 2015 Tramadol HCL 00/ Hx Tablets 50mg Mckeithen, 0000 - Confucianism 08/30/ RPA-C 2015 Warfarin 00/ Hx Tablets 2.5mg Unknown Sodium 0000 - 2016 Amiodarone HCL 00/ Hx Tablets 100mg 4 1/ Unknown 0000 - Tabs per 08/29/ week 2017 Amoxicillin 00/ Hx Chewtabs 125mg Unknown 0000 - 2015 Prednisone 00/ Hx Tablets 5mg 10 mg Unknown 0000 - for 2 12/04/ wks - 2017 than 5 mg 2 wks Medications Administered in Office Medication Date Status Form Strength Qnty SIG Indications Ordering Provider Avastin Administered Injection [place] Bevacizumab Larry Chamberlain M.D. Avastin Administered Injection [place] Bevacizumab Yair Chamberlain M.D. Avastin Administered Injection [place] Chamberlain M.D. Avastin Administered Injection [place] Bevacizumab Yair Chamberlain M.D. Avastin Administered Injection [place] Bevacizumab Yair Chamberlain M.D. Avastin Administered Injection [place] Bevacizumab 017 Tamiko Chamberlain Avastin Administered Injection [place] Bevacizumab 017 Tamiko Chamberlain Avastin Administered Injection [place] Bevacizumab 017 Tamiko Chamberlain Avastin Administered Injection [place] Bevacizumab 016 Tamiko Chamberlain Avastin Administered Injection [place] Bevacizumab 016 Tamiko Chamberlain Avastin Administered Injection [place] Bevacizumab 016 Tamiko Chamberlain Avastin Administered Injection Orlando Bevacizumab 016 Tamiko Chamberlain Avastin Administered Injection Camilo J. Bevacizumab 016 Tamiko Cunha Avastin Administered Injection Camilo J. Bevacizumab 016 Tamiko Cunha Avastin Administered Injection Camilo J. Bevacizumab 015 Tamiko Cunha Avastin Administered Injection Camilo J. Bevacizumab 015 Tamiko Cunha Avastin Administered Injection Camilo J. Bevacizumab 015 Tamiko Cunha Avastin Administered Injection Camilo J. Bevacizumab 015 Tamiko Cunha Avastin Administered Injection Camilo J. Bevacizumab 015 Tamiko Cunha Avastin Administered Injection Benjamin Hawkins Bevacizumab 014 Tamiko Bonner Avastin Administered Injection Benjamin MYessy Bevacizumab 014 Tamiko Bonner Vital Signs Date Vital Result Comment 06/05/2017 BP Systolic 154 mmHg BP Diastolic 61 mmHg Heart Rate 72 /min Respiratory Rate 15 /min 04/24/2017 BP Systolic 134 mmHg BP Diastolic 79 mmHg Heart Rate 68 /min Respiratory Rate 14 /min 02/13/2017 BP Systolic 150 mmHg BP Diastolic 70 mmHg Heart Rate 72 /min Respiratory Rate 16 /min 12/05/2016 BP Systolic 122 mmHg BP Diastolic 64 mmHg Heart Rate 78 /min Respiratory Rate 14 /min 10/24/2016 BP Systolic 142 mmHg BP Diastolic 84 mmHg Heart Rate 85 /min Respiratory Rate 15 /min 09/12/2016 BP Systolic 122 mmHg BP Diastolic 60 mmHg Heart Rate 80 /min Respiratory Rate 16 /min 07/25/2016 BP Systolic 125 mmHg BP Diastolic 75 mmHg Heart Rate 63 /min Respiratory Rate 16 /min 06/27/2016 BP Systolic 138 mmHg BP Diastolic 65 mmHg Heart Rate 55 /min Respiratory Rate 16 /min 05/23/2016 BP Systolic 143 mmHg BP Diastolic 83 mmHg Heart Rate 71 /min 04/25/2016 BP Systolic 135 mmHg BP Diastolic 65 mmHg Heart Rate 59 /min Respiratory Rate 16 /min 03/07/2016 BP Systolic 131 mmHg BP Diastolic 70 mmHg Heart Rate 74 /min Respiratory Rate 16 /min 02/08/2016 BP Systolic 136 mmHg BP Diastolic 66 mmHg Heart Rate 60 /min Respiratory Rate 16 /min 08/08/2015 BP Systolic 131 mmHg BP Diastolic 64 mmHg Heart Rate 62 /min Respiratory Rate 16 /min 07/04/2015 BP Systolic 126 mmHg BP Diastolic 65 mmHg Heart Rate 59 /min Respiratory Rate 16 /min Results Description No Information Procedures Date CPT Code Description Status 08/19/2017 31120 Est Patient Intermediate Exam Completed 08/08/2017 09700 Scanning Computerized Opthalmic Diagnostic Posterior Completed Seg Retina 08/08/2017 79570 Determination Of Refractive State Completed 08/08/2017 70914 Est Patient Comprehensive Exam Completed 06/05/2017 84129 Injection Intravitreal Of A Pharmacologic Agent Completed 04/24/2017 96334 Injection Intravitreal Of A Pharmacologic Agent Completed 02/13/2017 43573 Injection Intravitreal Of A Pharmacologic Agent Completed 12/27/2016 43576 Scanning Computerized Opthalmic Diagnostic Posterior Completed Seg Retina 12/05/2016 71808 Injection Intravitreal Of A Pharmacologic Agent Completed 10/24/2016 64738 Injection Intravitreal Of A Pharmacologic Agent Completed 09/12/2016 25576 Injection Intravitreal Of A Pharmacologic Agent Completed 08/30/2016 91410 Scanning Computerized Opthalmic Diagnostic Posterior Completed Seg Retina 07/25/2016 27036 Injection Intravitreal Of A Pharmacologic Agent Completed 06/27/2016 47922 Injection Intravitreal Of A Pharmacologic Agent Completed 05/23/2016 98487 Injection Intravitreal Of A Pharmacologic Agent Completed 05/01/2016 32204 Scanning Computerized Opthalmic Diagnostic Posterior Completed Seg Retina 04/25/2016 11917 Injection Intravitreal Of A Pharmacologic Agent Completed 03/07/2016 13675 Injection Intravitreal Of A Pharmacologic Agent Completed 02/08/2016 08898 Injection Intravitreal Of A Pharmacologic Agent Completed 01/31/2016 05345 Scanning Computerized Opthalmic Diagnostic Posterior Completed Seg Retina 01/31/2016 33046 Est Patient Comprehensive Exam Completed 09/01/2015 41577 Scanning Computerized Opthalmic Diagnostic Posterior Completed Seg Retina 09/01/2015 01771 Est Patient Comprehensive Exam Completed 08/08/2015 96813 Injection Intravitreal Of A Pharmacologic Agent Completed 07/04/2015 53268 Injection Intravitreal Of A Pharmacologic Agent Completed 04/25/2015 66340 Scanning Computerized Opthalmic Diagnostic Posterior Completed Seg Retina 04/25/2015 10662 Est Patient Comprehensive Exam Completed 04/11/2015 63277 Injection Intravitreal Of A Pharmacologic Agent Completed 02/14/2015 67925 Injection Intravitreal Of A Pharmacologic Agent Completed 01/04/2015 64070 Scanning Computerized Opthalmic Diagnostic Posterior Completed Seg Retina 01/04/2015 84581 Est Patient Comprehensive Exam Completed 12/13/2014 64645 Injection Intravitreal Of A Pharmacologic Agent Completed 11/01/2014 79949 Injection Intravitreal Of A Pharmacologic Agent Completed 09/08/2014 33866 Extracapsular Cataract Extraction W/Intraocular Lens Completed 09/01/2014 67897 Extracapsular Cataract Extraction W/Intraocular Lens Completed 08/24/2014 21183 Ophthalmic Biometry Completed 08/24/2014 13696 Ophthalmic Biometry Completed 08/24/2014 22244 Scanning Computerized Opthalmic Diagnostic Posterior Completed Seg Retina 08/16/2014 64336 Scanning Computerized Opthalmic Diagnostic Posterior Completed Seg Retina 08/16/2014 73804 Est Patient Comprehensive Exam Completed 06/28/2014 95484 Injection Intravitreal Of A Pharmacologic Agent Completed 06/07/2014 95682 Scanning Computerized Opthalmic Diagnostic Posterior Completed Seg Retina 06/07/2014 07995 Est Patient Comprehensive Exam Completed 05/17/2014 64612 Scanning Computerized Opthalmic Diagnostic Posterior Completed Seg Retina 04/27/2014 38462 Injection Intravitreal Of A Pharmacologic Agent Completed 03/25/2014 60749 Injection Intravitreal Of A Pharmacologic Agent Completed 02/18/2014 07573 Scanning Computerized Opthalmic Diagnostic Posterior Completed Seg Retina 02/18/2014 81093 Est Patient Comprehensive Exam Completed 11/17/2013 15439 Est Patient Comprehensive Exam Completed 11/26/2011 29018 Visual Field Exam Extended Completed 11/20/2011 33591 Scanning Computerized Opthalmic Diagnostic Posterior Completed Seg Retina 11/20/2011 70558 Est Patient Intermediate Exam Completed 08/02/2010 74013 Fundus Photography With Interpretation And Report Completed 08/02/2010 54793 Est Patient Comprehensive Exam Completed Encounters Type Date Location Provider CPT E/M Dx Office Visit 12/27/2016 Camilo Cunha MD, [place] Chamberlain, 00186 H35.3210 8:00a pc M.D. Office Visit 08/30/2016 Camilo Cunha MD, [place] Chamberlain, 01487 H35.3210 8:15a pc M.D. Office Visit 05/01/2016 Camilo Cunha MD, [place] Chamberlain, 01554 H35.3210 11:00a pc M.D. Office Visit 03/30/2016 Camilo Cunha MD, Margy Lovett, 74384 H11.31 3:15p pc O.D. Office Visit 08/24/2014 Camilo Cunha MD, Camilo Cunha, 49131 362.51 11:30a pc M.D. 366.16 362.52 Office Visit 05/17/2014 8:30a Camilo Cunha MD, Benjamin Bonner M.D. 06639 362.52 pc 362.52 Office Visit 11/26/2011 2:00p Camilo Cunha MD, Benjamin Bonner M.D. 53747 362.51 pc Plan of Care Future Appointment(s):11/13/2017 8:30 am - [place] Chamberlain M.D. at Camilo Cunha MD, 09/02/2017 - Disha Acuna O.D.H10.89 Other conjunctivitisComments:Smoking can increase the risk of developing or worsening any eye related disease, as well as affect your overall health. If you are a smoker, we strongly recommend that you quit.If you are not a smoker, we strongly recommend that you do not start. continue erythromycin ointment all lids until goneuse a hot compress fro 5-10 minutes with gentle lid scrubbing 1 x dayH10.523 Angular blepharoconjunctivitis, [id number] Exudative age- rel [facility] degn, right eye, stage unspecifiedFollow up:with gz as sched 11/13/17
--- OUTSIDE RECORDS SUMMARY | 2017-09-15 15:50 | XMS REPORT ---
:1935 External Reference #:[id number] Author Organization [facility] Address [address] [place] [address] Phone [phone] Care Team Providers Name Role Phone Terry Kerr M.D. Primary Care Physician Unavailable Payers Type Date Identification Numbers Payment Provider Subscriber Commercial Policy Number: [id number] [employer] Peter Al PayID: [id number] [address] [place] [address] Problems Date Description Provider Status Onset: 08/16/2014 [...] [employer] Work Status Retired FROM [employer] Use Denies alcohol use Smoking Patient [...] M.D. day Vitamin D / Active Capsules [id number] Shallish, (Ergocalcifero 0000 Terry M.D. l) Metoprolol / Active Tablets ER 25mg Shallish, Succinate ER 0000 24HR Terry M.D. Multi For Him / Active Capsules Unknown 0000 Calcium 500+D / Active Tablets 500-200mg- Unknown 0000 Unit Glucosamine / Active Packet 6925-3921- Unknown & 0000 800mg-mg-U Chondroiti nit N/Vitamin [...] Pino 2014 - left eye Arleo, 12/12/ b6hghlm M.D. 2014 Vigamox 08/24/ Hx Solution 0.5% [...] 00/ Hx Tablets 50mg Mckeithen, 0000 - Pentec[employer]ism 08/30/ RPA-C 2015 Warfarin 00/ Hx Tablets [...] Chamberlain Avastin Administered Injection [place] Bevacizumab 017 Tamiok Chamberlain Avastin Administered Injection [place] Bevacizumab 017 [...] Bevacizumab 015 Tamiko Cunha Avastin Administered Injection Camlio J. Bevacizumab 015 Tamiko Cunha Avastin Administered [...] Information Procedures Date CPT Code Description Status 08/08/2017 58703 Scanning Computerized Opthalmic Diagnostic Posterior Completed Seg Retina 08/08/2017 41092 Determination Of Refractive State Completed 08/08/2017 09894 Est Patient Comprehensive Exam Completed 06/05/2017 32746 Injection Intravitreal Of A Pharmacologic Agent Completed 04/24/2017 19936 Injection Intravitreal Of A Pharmacologic Agent Completed 02/13/2017 72879 Injection Intravitreal Of A Pharmacologic Agent Completed 12/27/2016 85018 Scanning Computerized Opthalmic Diagnostic Posterior Completed Seg Retina 12/05/2016 53058 Injection Intravitreal Of A Pharmacologic Agent Completed 10/24/2016 68070 Injection Intravitreal Of A Pharmacologic Agent Completed 09/12/2016 61320 Injection Intravitreal Of A Pharmacologic Agent Completed 08/30/2016 67962 Scanning Computerized Opthalmic Diagnostic Posterior Completed Seg Retina 07/25/2016 25439 Injection Intravitreal Of A Pharmacologic Agent Completed 06/27/2016 25910 Injection Intravitreal Of A Pharmacologic Agent Completed 05/23/2016 43640 Injection Intravitreal Of A Pharmacologic Agent Completed 05/01/2016 70610 Scanning Computerized Opthalmic Diagnostic Posterior Completed Seg Retina 04/25/2016 79160 Injection Intravitreal Of A Pharmacologic Agent Completed 03/07/2016 92162 Injection Intravitreal Of A Pharmacologic Agent Completed 02/08/2016 94956 Injection Intravitreal Of A Pharmacologic Agent Completed 01/31/2016 06953 Scanning Computerized Opthalmic Diagnostic Posterior Completed Seg Retina 01/31/2016 47765 Est Patient Comprehensive Exam Completed 09/01/2015 65211 Scanning Computerized Opthalmic Diagnostic Posterior Completed Seg Retina 09/01/2015 16307 Est Patient Comprehensive Exam Completed 08/08/2015 26814 Injection Intravitreal Of A Pharmacologic Agent Completed 07/04/2015 60837 Injection Intravitreal Of A Pharmacologic Agent Completed 04/25/2015 83718 Scanning Computerized Opthalmic Diagnostic Posterior Completed Seg Retina 04/25/2015 07861 Est Patient Comprehensive Exam Completed 04/11/2015 82037 Injection Intravitreal Of A Pharmacologic Agent Completed 02/14/2015 38785 Injection Intravitreal Of A Pharmacologic Agent Completed 01/04/2015 02252 Scanning Computerized Opthalmic Diagnostic Posterior Completed Seg Retina 01/04/2015 45304 Est Patient Comprehensive Exam Completed 12/13/2014 08621 Injection Intravitreal Of A Pharmacologic Agent Completed 11/01/2014 17463 Injection Intravitreal Of A Pharmacologic Agent Completed 09/08/2014 51468 Extracapsular Cataract Extraction W/Intraocular Lens Completed 09/01/2014 00647 Extracapsular Cataract Extraction W/Intraocular Lens Completed 08/24/2014 95619 Ophthalmic Biometry Completed 08/24/2014 63432 Ophthalmic Biometry Completed 08/24/2014 51785 Scanning Computerized Opthalmic Diagnostic Posterior Completed Seg Retina 08/16/2014 02858 Scanning Computerized Opthalmic Diagnostic Posterior Completed Seg Retina 08/16/2014 21868 Est Patient Comprehensive Exam Completed 06/28/2014 05119 Injection Intravitreal Of A Pharmacologic Agent Completed 06/07/2014 97638 Scanning Computerized Opthalmic Diagnostic Posterior Completed Seg Retina 06/07/2014 97823 Est Patient Comprehensive Exam Completed 05/17/2014 86840 Scanning Computerized Opthalmic Diagnostic Posterior Completed Seg Retina 04/27/2014 58394 Injection Intravitreal Of A Pharmacologic Agent Completed 03/25/2014 90200 Injection Intravitreal Of A Pharmacologic Agent Completed 02/18/2014 89481 Scanning Computerized Opthalmic Diagnostic Posterior Completed Seg Retina 02/18/2014 56212 Est Patient Comprehensive Exam Completed 11/17/2013 54157 Est Patient Comprehensive Exam Completed 11/26/2011 08037 Visual Field Exam Extended Completed 11/20/2011 52848 Scanning Computerized Opthalmic Diagnostic Posterior Completed Seg Retina 11/20/2011 65162 Est Patient Intermediate Exam Completed 08/02/2010 27286 Fundus Photography With Interpretation And Report Completed 08/02/2010 67890 Est Patient Comprehensive Exam Completed Encounters Type Date Location Provider CPT E/M Dx Office Visit 12/27/2016 Camilo Cunha MD, Orlando Chamberlain, 73377 H35.3210 8:00a pc M.D. Office Visit 08/30/2016 Camilo Cunha MD, Orlando Chamberlain, 35065 H35.3210 8:15a pc M.D. Office Visit 05/01/2016 Camilo Cunha MD, [place] Chamberlain, 10796 H35.3210 11:00a pc M.D. Office Visit 03/30/2016 Camilo Cunha MD, Margy Lovett, 66940 H11.31 3:15p pc O.D. Office Visit 08/24/2014 Camilo Cunha MD, Camilo Cunha, 05704 362.51 11:30a pc M.D. 366.16 362.52 Office Visit 05/17/2014 8:30a Camilo Cunha MD, Benjamin Bonner M.D. 87892 362.52 pc 362.52 Office Visit 11/26/2011 2:00p Camilo Cunha MD, Benjamin Bonner M.D. 95288 362.51 pc Plan of Care Future Appointment(s):11/13/2017 8:30 am - Orlando Chamberlain M.D. at Camilo Cunha MD, 08/19/2017 - Disha Acuna O.D.H10.89 Other conjunctivitisNew Medication:Erythromycin 5 mg/GMComments:start ointment at bedtime both eyes - put in eyes and rub on all lidsuse an artificial tears every 2-3 hours both eyesFollow up:2 Week Follow UpH10.523 Angular blepharoconjunctivitis, bilateral
[2017-09-15 15:52] VITALS: BP 137/68
[2017-09-15] MEDS ORDERED: cefTRIAXone(*) 1 GM in NS 0.9% 50 ML* 50 ML IVPB ONE (16:31)
[2017-09-15] MEDS ORDERED: cefTRIAXone VIAL(*) 1,000 MG VIAL IM ONE (16:41)
--- NOTE | 2017-09-15 16:43 | UC ---
Complaint Male HPI - HPI Summary HPI Summary: Patient states that he has been having fever, urinary frequency and incontinence since yesterday. He states once he starts volitional urination flow is normal. 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 States he is only on ASA 81mg po daily for Afib, stopped coumadin and plavix, s/p mitral valve repair. Denies flank pain, nausea or vomiting, stools are normal in color and consistency, denies blood in stools or tenesmus. - History of Current Complaint Chief Complaint: UCGU Stated Complaint: PAINFUL URINATION Time Seen by Provider: 09/15/17 16:09 Hx Obtained From: Patient Onset/Duration: Sudden Onset, Lasting Hours Timing: Constant Severity Initially: Mild Severity Currently: Moderate Pain Intensity: 0 Location: Suprapubic Character: Burning Aggravating Factor(s): Voiding Alleviating Factor(s): Nothing Associated Signs And Symptoms: Positive: Fever - Risk Factors Testicular Torsion: Negative - Allergies/Home Medications Allergies/Adverse Reactions: Allergies Allergy/AdvReac Type Severity Reaction Status Date / Time amiodarone Allergy See Comment Verified 09/15/17 15:54 Home Medications: Home Medications Areds 2 1 tab PO DAILY 09/15/17 [History] Aspirin EC TAB* [Ecotrin EC Low Dose 81 MG*] 1 tab PO DAILY 09/15/17 [History Confirmed 09/15/17] Calcium Citrate/Vitamin D3 [Calcium Citrate - Vit D Tablet] 1 tab PO DAILY 09/15 [History Confirmed 09/15/17] Cholecalciferol TAB* [Vitamin D TAB*] 50,000 tab PO MONTHLY 09/15/17 [History Confirmed 09/15/17] Fluticasone/Vilanterol MDI(NF) [Breo Ellipta MDI 100/25(NF)] 1 dose INH DAILY [History Confirmed 09/15/17] Sotalol HCl [Betapace] 1 tab PO DAILY 09/15/17 [History Confirmed 09/15/17] PMH/Surg Hx/FS Hx/Imm Hx Previously Healthy: Yes Endocrine History: Dyslipidemia Cardiovascular History: Hypertension, Atrial Fibrillation - Surgical History Surgical History: Yes Surgery Procedure, Year, and Place: DEFIBRILATOR , 2013 , MITRAL VALVE REPAIR , 2005 , STOMACH ULCER REPAIR [id number] , BILAT SHOULDER REPAIR, 1988, 2006. 2016, COLON RESECTION. 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 Substance Use Type: None Substance Use Comment - Amount & Last Used: SINCE 1987 Smoking Status (MU): Former Smoker Type: Cigarettes Amount Used/How Often: 2ppd Length of Time of Smoking/Using Tobacco: 35 years Have You Smoked in the Last Year: No When Did the Patient Quit Smoking/Using Tobacco: 29 YEARS AGO - Immunization History Most Recent Influenza Vaccination: 2016 Most Recent Tetanus Shot: up to date Most Recent Pneumonia Vaccination: up to date Review of Systems Constitutional: Fever Genitourinary: Frequency, Urgency All Other Systems Reviewed And Are Negative: Yes Physical Exam Triage Information Reviewed: Yes Appearance: Well-Appearing, No Pain Distress, Well-Nourished Vital Signs: Initial Vital Signs Temp 100.3 F 09/15/17 15:49 Pulse 77 09/15/17 15:49 Resp 18 09/15/17 15:49 BP 137/68 09/15/17 15:49 Pulse Ox 98 09/15/17 15:49 Vital Signs Reviewed: Yes Eyes: Positive: Conjunctiva Clear ENT: Positive: Hearing grossly normal, Pharynx normal Neck: Positive: Supple, Nontender, No Lymphadenopathy Respiratory: Positive: Chest non-tender, Lungs clear, Normal breath sounds, No respiratory distress Cardiovascular: Positive: RRR, No Murmur, Pulses Normal, Brisk Capillary Refill Abdomen Description: Positive: Nontender, No Organomegaly, Soft, Bruit, Other: - no CVA tenderness Bowel Sounds: Positive: Present - no CVA tenderness Complaint Male Course/Dx - Course Course Of Treatment: 81 yo patient who developed fever and urinary incontinence today, was asymptomatic prior to that. History of colovesicular fistula repaired 3 years ago , now with recurrence of UTI. Rocephin 1g IVPB given at , patient tolerated procedure well, patient advised to f/u with urology within a week to consider recurrence of fistula. Patient instructed to go to ER if fever is not resolved within 24 hrs or if vomiting, flank pain or worsening of current symptoms occur. - Differential Dx/Diagnosis Provider Diagnoses: UTI Discharge - Sign-Out/Discharge Documenting (check all that apply): Discharge - Discharge Plan Condition: Stable Disposition: HOME Prescriptions: ceFIXime [Suprax] 400 mg PO DAILY 10 Days #10 capsule Patient Education Materials: Cefixime (By mouth), Urinary Tract Infection in Men (ED) Referrals: Terry Kerr MD [Primary Care Provider] - Additional Instructions: follow up with urology within a week - Billing Disposition and Condition Condition: STABLE Disposition: HOME
== END 2017-09-15 17:27 | disposition home or self-care (01) ==
LOC: UCEAST 15:42
DX: N39.0 Urinary tract infection, site not specified (principal); B96.20 Unspecified Escherichia coli [E. coli] as the cause of diseases classified elsewhere; R50.9 Fever, unspecified; Z87.440 Personal history of urinary (tract) infections; E78.5 Hyperlipidemia, unspecified; I10 Essential (primary) hypertension; I48.91 Unspecified atrial fibrillation; Z95.810 Presence of automatic (implantable) cardiac defibrillator; Z88.8 Allergy status to other drugs, medicaments and biological substances; Z87.891 Personal history of nicotine dependence
CPT/HCPCS: 81003; 87077; 87086; 87186; 96365; 99212; G0463; J0696

== ENCOUNTER 2018-06-26 08:24 | Emergency (ER) | payer MEDICARE ==
--- NOTE | 2018-06-26 08:59 | ED ---
Lower Extremity - HPI Summary HPI Summary: Patient presents with right toe pain since last night. He had an ingrown toenail removed at his buying agent's office yesterday and a bandage applied. He was instructed to remove the bandage and soak his toe daily as well as take pain medication as needed. His bandage is still in place and he is reporting pain with foot swelling. Pain kept him up all night. He tried Tylenol last night with minimal relief. Has not taken anything for pain this morning nor is he attempted to remove his dressing. Denies fever, chills. - History of Current Complaint Chief Complaint: EDExtremityLower Stated Complaint: LEFT FOOT PAIN Time Seen by Provider: 06/26/18 08:43 Hx Obtained From: Patient, Family/Engineer Byproduct - son Pain Intensity: 9 - Allergies/Home Medications Allergies/Adverse Reactions: Allergies Allergy/AdvReac Type Severity Reaction Status Date / Time amiodarone Allergy See Comment Verified 06/26/18 08:27 PMH/Surg Hx/FS Hx/Imm Hx Previously Healthy: Yes Endocrine/Hematology History: Denies: Hx Diabetes, Hx Systemic Lupus Erythematosus Cardiovascular History: Reports: Hx Auto Implanted Cardiovert Defib, Hx Cardiomegaly - CARDIOMYOPATHY, Hx Coronary Artery Disease, Hx Hypertension, Hx Pacemaker/ICD - AICD, [employer] FIFIBRILATOR, Hx Valvular Heart Disease - MITRAL VALVE REPAIR, Other Cardiovascular Problems/Disorders - mitral regurgitation, A FIB, AORTIC STENOSIS, V TACH, TORSADES DE POINTES Denies: Hx Congestive Heart Failure Respiratory History: Reports: Hx Pneumonia, Other Respiratory Problems/ Disorders - FUSO-BACTERIUM INFECTION-3 YEARS AGO- [place] BY DR. RODRÍGUEZ GI History: Reports: Hx Diverticulosis, Hx Ulcer, Other GI Disorders - 1974 stomach repair OF ULCER History: Reports: Hx Benign Prostatic Hyperplasia, Other Problems/ Disorders Denies: Hx Dialysis, Hx Renal Disease Musculoskeletal History: Reports: Hx Arthritis - BACK AND HIPS, Hx Back Problems , Other Musculoskeletal History - spinal stenosis Denies: Hx Rheumatoid Arthritis Sensory History: Reports: Hx Cataracts - BILATERAL, Hx Contacts or Glasses Denies: Hx Hearing Aid Opthamlomology History: Reports: Hx Cataracts - BILATERAL, Hx Contacts or Glasses Neurological History: Denies: Hx Headaches, Hx Transient Ischemic Attacks (TIA), Other Neuro Impairments/Disorders Psychiatric History: Denies: Hx Panic Disorder - Cancer History Hx Chemotherapy: No - Surgical History Surgery Procedure, Year, and Place: DEFIBRILATOR , 2014 , MITRAL VALVE REPAIR , 2005 , STOMACH ULCER REPAIR [id number] , BILAT SHOULDER REPAIR, 1988, 2006. 2016, COLON RESECTION. 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 Hx Substance Use: No Substance Use Type: Reports: None Substance Use Comment - Amount & Last Used: SINCE 1987 Hx Tobacco Use: No Smoking Status (MU): Former Smoker Type: Cigarettes Amount Used/How Often: 2ppd Length of Time of Smoking/Using Tobacco: 35 years Have You Smoked in the Last Year: No Review of Systems Constitutional: Negative Negative: Fever, Chills Positive: no symptoms reported Musculoskeletal: Other - Rt hallux pain Skin: Other - surgical wound to Rt toe from yesterday Neurological: Negative Psychological: Normal All Other Systems Reviewed And Are Negative: Yes Physical Exam Triage Information Reviewed: Yes Vital Signs On Initial Exam: Initial Vitals Temp Pulse Resp BP Pulse Ox 97.4 F 63 16 164/83 96 06/26/18 08:27 06/26/18 08:27 06/26/18 08:27 06/26/18 08:27 06/26/18 08:27 Vital Signs Reviewed: Yes Appearance: Positive: Well-Appearing, No Pain Distress, Well-Nourished Skin: Positive: Warm, Skin Color Reflects Adequate Perfusion, Dry - mild erythema about the Rt hallux nail - no active bleeding, acute edema, lesions - mild TTP along lateral aspect Head/Face: Positive: Normal Head/Face Inspection Eyes: Positive: EOMI ENT: Positive: Hearing grossly normal Respiratory/Lung Sounds: Positive: Breath Sounds Present Cardiovascular: Positive: Pulses are Symmetrical in both Upper and Lower Extremities. Negative: Leg Edema Left, Leg Edema Right Musculoskeletal: Positive: Strength/ROM Intact, Pain @ - as mentioned above - can move toes and ankle w/o difficulty Neurological: Positive: Sensory/Motor Intact, Alert, Oriented to Person Place, Time, CN Intact II-III Psychiatric: Positive: Normal Diagnostics - Vital Signs Vital Signs Temp Pulse Resp BP Pulse Ox 06/26/18 08:27 97.4 F 63 16 164/83 96 - Laboratory Lab Statement: Any lab studies that have been ordered have been reviewed, and results considered in the medical decision making process. Re-Evaluation - Re-Evaluation First Eval Change: Improved - toe pain mostly resolved w/ removal of bandage - pt reports swelling has improved as well Lower Extremity Course/Dx - Course Course Of Treatment: Pt presents w/ Rt hallux pain s/p surgical removal of ingrown toenail yesterday. He had not removed dressing from the area prior to arrival and had great relief when this was done. Suspect this was constricting nerves and creating edema which improved. Pt agrees to continue w/ careplan as directed by podiatry and f/u here only if danger s/sx present. Toe redressed cher -pt tolerated well. - Diagnoses Provider Diagnoses: Pain of right great toe Discharge - Sign-Out/Discharge Documenting (check all that apply): Patient Departure - Discharge Plan Condition: Stable Disposition: HOME Referrals: Terry Kerr MD [Primary Care Provider] - Additional Instructions: Follow discharge instructions from podiatry and follow-up as directed *If you develop fever, chills, chest pain, difficulty breathing, numbness or weakness of this area, return to the ED - Billing Disposition and Condition Condition: STABLE Disposition: Home
--- OUTSIDE RECORDS SUMMARY | 2018-06-26 09:23 | XMS REPORT | Continuity of Care Document ---
:1935 External Reference #:[id number] Author Name Morena Rojas Care Team Providers Name Role Phone Terry Kerr MD Primary Care Physician Unavailable Payers Type Date Identification Numbers Payment Provider Subscriber Effective: 2016 Policy Number: [id number] [employer] Peter Merritt Group Number: [id number] [address] PayID: [id number] [place] [address] Effective: 1998 Policy Number: [id number] Medicare Peter Merritt Expires: 2016 PayID: [id number] [address] [place] [address] Effective: 1993 Policy Number: [id number] [employer] Peter Merritt Expires: 2016 Group Number: [id number] [address] Group Name: [place] [address] PayID: [id number] Advance Directives Description No Information Available Problems Date Description Provider Status Onset: 05/16/2011 Mitral valve disorder Alexx Clinton M.D. Active Onset: 04/15/2012 Disorder of lung Charlie Gamboa M.D. Onset: 04/15/2012 Abscess of lung Charlie Gamboa M.D. Onset: 07/02/2012 Aortic valve disorder Alexx Clinton M.D. Active Onset: 07/02/2012 Pure hypercholesterolemia Alexx Clinton M.D. Active Onset: 05/04/2013 Paroxysmal ventricular tachycardia Alexx Clinton M.D. Active Onset: 01/11/2014 Enthesopathy of hip region Terry Rose M.D. 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, unspecified Family History Date Family Member(s) Problem(s) Comments General heart disease General diabetes : (age 55 Years) Father due to [place] Mother due to Diabetes () Mother due to Alcoholism () First Sister due to Diabetes () Social History Type Date Description Comments Sex Unknown Marital Status Lives With Spouse Occupation Retired ETOH Use Denies alcohol use Tobacco Use Start: Unknown End: Patient is a former quit 30 years ago Unknown smoker Recreational Drug Use Denies Drug Use Smoking Status Reviewed: 06/05/18 Patient is a former quit 30 years ago smoker Exercise Type/Frequency Exercises regularly Tries to swim every other day Allergies, Adverse Reactions, Alerts Date Description Reaction Status Severity Comments 04/03/2018 Amiodarone Active Chance ofAPT 12/24/2002 NKDA Inactive Medications Medication Date Status Form Strength Qnty SIG Indications Ordering Provider Prednisone 12/16 Active Tablets 1mg 270ta take one bs tablet by alejandro Osorio daily MLeonie Sotalol HCL 11/06 Active Tablets 120mg 90tab 1 by mouth Alexx (AF) s daily Magalys Clinton M.D. Metoprolol 05/23 Active Tablets ER 25mg 90tab 1 by mouth Alexx Succinate ER 24HR s twice a day Magalys Clinton M.D. Breo Ellipta 03/22 Active Aerosol 100-25mcg 60uni Inhale One Raiza /2016 /Inh ts puff By Teresa Mouth Every MD Day Compression 12/31 Active Misc 1Pair knee high R60.0 Alexx Stockings /2016 closed toe brittaney Whitehead M.D. Oxygen 10/24 Active Misc 1unit please use R09.02 Raiza /2017 s o2 at 2l/min Teresa, with exertion and O2 at 3l/min hs, pls provide portable o2 concentrator Atorvastatin 01/11 Active Tablets 20mg 30tab take 1 E78.0 s tablet at F. bedtime Tamiko Clinton Tramadol HCL 01/25 Active Tablets 50mg 60tab 1 tabs every s 6hrs as Delfino, needed pain Tamiko Calcium Citrate 01/11 Active Tablets 640mg 180ta 1 by mouth Terry Pino bs twice daily Tamiko Rose Vitamin D Active 50,000U 1 q month Alendronate Active Tablets 70mg 4tabs 1 po weekly Other Ordering Provider Glucosamine Active 1000mg 1 po qd Areds 2 Active 1 po bid Vitamin B12 Active Tablets 500mg 1 po bid Acetaminophen Active 2 po every 4hrs as needed Viagra Active 50mg 1 tablet po daily as needed Magnesium Oxide Active Tablets 400mg 90tab 1 tablet s daily F. Tamiko Clinton Multi Vitamin Active Tablets 1 by mouth Unknown Daily / every day Aspirin Active Chewtabs 81mg 1 by mouth every day Prednisone 12/16 Hx Tablets 5mg 90tab 1 by mouth M35.3 s every day Victor Hugo Osorio M.D. 03/27 Diltiazem CD 10/19 Hx Caps ER 120mg 90cap 1 by mouth 24HR s every day F. - Mary Beth 11/06 Tamiko Prednisone 09/25 Hx Tablets 10mg 30tab take one s capsule/tabl Victor Hugo Osorio et daily by Tamiko 12/16 Torsemide 08/15 Hx Tablets 10mg 10tab 1/2 by s mouth every F. - day as Mayr Beth 05/07 needed Tamiko Oxygen 08/12 Hx Misc 1unit please Raiza /2018 s discontinue Teresa, - nocturnal o2 09/2208/30/17 Pt /2017 states he uses OS at hs Prednisone 08/12 Hx Tablets 5mg Take 3 tabs daily for 1 Devon, - week then M.D. 09/25 2.5 tabs daily for 1 week then 1 tab daily ongoing Voltaren 06/06 Hx Gel 1% 900gm ( Not Using) S76.301A apply 4 gm F - to the Yasemin, 06/04 affected MD area 4 times a day as needed for pain Oxygen 01/07 Hx Misc 1unit please use R09.02 Raiza s o2 at 2l/min Teresa, - with 08/12 exertion, pls provide pt with portable O2 concentrator , simply mini/Inogen Prednisone 10/24 Hx Tablets 5mg 90tab 4 tabs by Rene.Bran Eastman s mouth every Teresa, - day for 1 12/30 week, 3 tabs /2016 for 1 week, 2 tabs for 1 week, 1 tab for week Levaquin 10/24 Hx Tablets 500mg 7tabs 1 by mouth Rene.4 Raiza every day Teresa, - 12/30 Oxygen 08/13 Hx Misc 1unit please d/c Raiza /2017 s O2 Teresa, - concentrator 09/10 , pt doesn need it Prednisone 07/31 Hx Tablets 5mg 120ta 4 tabs by [email or web address] Raiza bs mouth every Teresa, - day for 1 10/24 week, 3 tabs /2016 for 3 weeks, 2 tabs for 2 weeks, 1 tablet for month Levofloxacin 06/04 Hx Tablets 750mg 1 by mouth every day ( - pt has not 07/11 picked up from pharmacy yet) Diltiazem CD 01/22 Hx Caps ER 120mg 60cap 1 by mouth 24HR s daily F. - (decreased Mauser, 06/1006/22/16) M.DYessy /2017 Lovenox 07/21 Hx Solution 60mg/0.6M 10uni 1 sq q 12 L ts hours F. - Mauser, 08/02 M.D. Amiodarone HCL 07/20 Hx Tablets 200mg 1 by mouth bid F. - Mauser, 07/20 M.D. Temazepam 07/20 Hx Capsules 15mg 1-2 po qhs prn F. - Mauser, 09/18 M.D. Amiodarone HCL 07/20 Hx Tablets 200mg 45tab 1/2 by mouth s 4x per week F. - (decreased Mauser, 08/0606/27/16) M.D. /2016 Diltiazem HCL 08/19 Hx Caps ER 120mg 90cap 1 tab by I42.9 Alexx ER Coated Beads 24HR s mouth F. - everyday Mauser, 06/19 M.D. Metoprolol 07/26 Hx Tablets ER 25mg 300ta 1 by mouth Alexx Succinate ER /2014 24HR bs each morning F. - and two Mauser, 08/10 each evening M.D. Cefdinir 01/21 Hx Capsules 300mg 56cap 1 cap po bid 595.0 s Margarita Maria, 04/08 M.D. Metoprolol 07/30 Hx Tablets ER 50mg 90tab 1 by mouth Alexx Succinate ER 24HR s every day F. - Mauser, 07/26 M.D. Verapamil HCL 05/04 Hx Caps ER 180mg 30cap 1 po qd Alexx SR 24HR s F. - Mauser, 07/22 M.D. Diltiazem HCL 04/22 Hx Caps ER 120mg 90cap 1 po qd Alexx ER 24HR s F. - Mauser, 05/04 M.D. Augmentin 05/15 Hx Tablets 500-125mg 21tab 1 tab po tid 513.0 s Margarita Xiong, 07/02 M.D. Invanz 05/02 Hx Solution 1gm 28uni 1 gm IV Q24 Rec ts hrs . - Inga, 07/02 M.D. Piperacillin/Ta 04/15 Hx Solution 4-0.5gm QS 4.5gm IV Eleuterio zobactam /2011 Rec Q8hrs Margarita Xiong, 05/02 M.D. Vitamin D 08/25 Hx 400Iu 1 po daily F. - Mauser, 07/02 M.D. Metoprolol 05/26 Hx Tablets ER 25mg / tab qd Alexx Succinate 24HR till 06/12 F. - then 06/04 qod Mauser, 08/25 till M.D. 07/02-then dc Lipitor 02/16 Hx Tablets 20mg 30tab 1/ po qod s [facility]. - Mauser, 08/25.D. Lipitor 11/23 Hx Tablets 10mg 1/2 po qhs F. - Mauser, 11/23 M.D. Metoprolol 11/23 Hx Tablets ER 25mg 90tab 1 po qd Alexx 24HR s F. - Mauser, 05/26 M.D. Lipitor 10/08 Hx Tablets 10mg 30tab 1 PO qod s F. - Mauser, 11/23 M.D. Lipitor 09/05 Hx Tablets 10mg 1 po qd F. - Mauser, 10/08.D. Ferrous Sulfate 06/15 Hx Tablets 324mg 90tab 1 po tid s F. - Mauser, 09/06 M.D. Amiodarone 06/06 Hx Tablets 200mg 30tab 1 po qd s F. - Mauser, 07/09 M.D. Toprol XL 06/06 Hx Tablets 25mg 30tab 1 po qd s F. - Mauser, 07/09 M.D. Lipitor Hx Tablets 20mg 30tab 1 po qd Alexx s . - Mauser, 09/06 M.D. Aspirin Enteric Hx Tablets 81mg 30tab qd Alexx s Magalys Clinton, 08/28 M.D. Glosamine / Hx 30uni one qd Alexx Condriton / Magalys Clinton, 07/07 M.D. Vitamins / Hx Caplets 30cap 1 po qd Alexx Multiple /0000 s Magalys Clinton, 08/25 M.D. /2009 Simvastatin / Hx Tablets 20mg 30tab 1/2 tab po q Unknown / s hs - 05/12 Multivitamin /00 Hx 1 po daily Unknown / - 05/02 Vitamin B12 Hx 1000mcg 1 po weekly Unknown / - 07/07 Iron-For Teens Hx 1 po bid Unknown / - 05/02 One-A-Day Teen 0000 Hx Tablets daily Unknown Advantage For /0000 Her - 07/02 Vitamin C Hx Chewtabs 500mg 60uni 1/2 po qd Unknown / ts - 07/07 Areds Vision Hx 2 daily Unknown / - 07/07 Vitamin D 00/ Hx Capsules 1.5mg 1 po Monthly Unknown / - 07/07 Multi-Vitamin Hx Tablets 1 po qd Unknown / - 07/07 Ocuvite / Hx Tablets 90tab 1 po qd Unknown / s - 07/07 Metoporol / Hx 50mg 1 po qd Unknown / - 07/30 Vitamin C SR Hx Capsules ER 1200mg 1 po qd Other / Ordering - Provider 07/25 Fosamax 00/00 Hx Unknown / - 01/11 Womens 00/ Hx 1 po qd Unknown Advantage /0000 (taken for - extra iron) 06/04 Calcium 1000 + 00/00 Hx Tablets 1200-800m 1 by mouth Unknown D /0000 g-Unit every day - 08/18 Hydrocodone-Frederic 00/00 Hx Tablets 7.5-325mg 1 by mouth Unknown taminophen /0000 every 6 - hours as 04/08 needed Ocuvite 00/00 Hx Tablets 1 by mouth Unknown /0000 every day - 08/18 Finasteride 00/ Hx Tablets 5mg 1 by mouth Unknown /0000 every day - 02/19 Metoprolol Hx Tablets ER 50mg 90tab 1 by mouth Alexx Succinate ER /0000 24HR s every day Magalys Clinton, 05/23 M.D. Amoxicillin/Cla Hx 500mg 1 tablet Unknown vulanate /0000 twice a day Potassium - 02/19 Fish Oil 0000 Hx 1 tablet Unknown /0000 once a day - 09/18 Docusate Sodium 00 Hx 200mg daily Unknown /0000 - 02/19 Senna 0000 Hx 2 tablets at Unknown /0000 bedtime - 02/19 Cyanocobalamin 00 Hx 1,000mcg Unknown /0000 daily - 06/20 Polyethylene 00 Hx 17gm daily Unknown Glycol 3350 /0000 prn - 09/18 Amiodarone HCL Hx Tablets 400mg 30tab 1 tablet Alexx /0000 s daily Magalys Clinton, 07/20 M.D. Coumadin Hx 5mg 5mg po 7day Unknown /0000 per week as - directed ( 12/[address] Kerr) Hydromorphone Hx 4mg 1 tablet Unknown HCL /0000 every 4hr - prn 02/19 Enoxaparin Hx 70 SQ every Unknown Sodium /0000 12hrs - 07/19 Fosamax /00 Hx weekly Unknown /0000 (Sundays) - 08/03 Naproxen Sodium 00 Hx 1-2 times Unknown /0000 per week as - needed for 01/14 hip pain /2017 Womens One 00 Hx Tablets 1 by mouth Unknown Daily /0000 every day - 12/14 Lyrica Hx Capsules 50mg 1 tablet po Usha, /0000 t.i.dTerry MD - titrate off 09/10 ( Pt not been taken, last taken 2 days ago 07/10/16 ) Levalbuterol Hx Nebulizer 1.25mg/3M 1 vial Use Unknown HCL /0000 L Every 8 - Hours as 10/22 Needed For Shortness Of Breath Budesonide Hx Suspension 0.5mg/2ML Inhale The Unknown /0000 Contents Of - One Vial Via 09/10 Nebul One To Two Times Daily Acyclovir Hx Tablets 400mg Take One Unknown /0000 Tablet By - Mouth Four 07/11 Times A Day For 5 Days For Varicella Inf Oxygen 00 Hx Misc please use Unknown /0000 o2 at 3l/min - continuous 09/10 Clopidogrel Hx Tablets 75mg 1 by mouth Unknown Bisulfate /0000 every day - 08/08 Sotalol HCL Hx Tablets 120mg 90tab 1 by mouth Alexx /0000 s every day Magalys Clinton, 10/21 Tamiko /2017 Prednisone Hx Tablets 10mg 1 po qd (15 Unknown /0000 mg/day) - 08/12 Sotalol HCL Hx Tablets 120mg 1 by mouth Unknown /0000 one time per - day 12/16 Medications Administered in Office Medication Date Status Form Strength Qnty SIG Indications Ordering Provider Celestone 3 mg Administered Injection Josi and 3mg 014 Maliha mcclain M.D. Immunizations CPT Code Status Date Vaccine Lot # [id number] Given 02/11/2014 Fluvirin Im 3Yrs And Older [id number] Ordered 04/27/2015 Influenza Virus 3Yrs & Over Vital Signs Date Vital Result Comment 06/05/2018 1:54pm Height 67 inches 5'7" Weight 166.50 lb with shoes Heart Rate 60 /min left radial, irregular BP Systolic Sitting 138 mmHg right arm BP Diastolic Sitting 58 mmHg right arm BP Systolic Recheck 140 mmHg lt arm BP Diastolic Recheck 60 mmHg lt arm BMI (Body Mass Index) 26.1 kg/m2 05/15/2018 11:36am Height 67 inches 5'7" Weight 167.00 lb Heart Rate 60 /min BP Systolic Sitting 122 mmHg BP Diastolic Sitting 66 mmHg Respiratory Rate 14 /min O2 % BldC Oximetry 97 % BMI (Body Mass Index) 26.2 kg/m2 05/08/2018 8:17am Height 67 inches 5'7" Weight 164.25 lb with shoes Heart Rate 60 /min BP Systolic Sitting 142 mmHg lue reg cuff BP Diastolic Sitting 74 mmHg lue reg cuff BP Systolic Standing 132 mmHg la repeat sitting BP Diastolic Standing 63 mmHg la repeat sitting BMI (Body Mass Index) 25.7 kg/m2 Ejection Fraction 55-60% Ref 04/03/2018 1:40pm Height 67 inches 5'7" Weight 163.38 lb Heart Rate 52 /min BP Systolic 130 mmHg left arm BP Diastolic 58 mmHg left arm BP Systolic Sitting 110 mmHg right arm BP Diastolic Sitting 58 mmHg right arm BMI (Body Mass Index) 25.6 kg/m2 03/27/2018 8:48am Height 67 inches 5'7" Weight 165.50 lb Heart Rate 59 /min BP Systolic Sitting 118 mmHg BP Diastolic Sitting 68 mmHg Pain Level 0 O2 % BldC Oximetry 98 % BMI (Body Mass Index) 25.9 kg/m2 02/28/2018 3:21pm Height 67 inches 5'7" Weight 164.00 lb Heart Rate 60 /min BP Systolic Sitting 118 mmHg Rue reg cuff BP Diastolic Sitting 62 mmHg Rue reg cuff BP Systolic Standing 126 mmHg Rue BP Diastolic Standing 66 mmHg Rue Respiratory Rate 14 /min BMI (Body Mass Index) 25.7 kg/m2 Ejection Fraction 55-60% 02/11/18 12/16/2017 8:44am Height 67 inches 5'7" Weight 164.12 lb Heart Rate 54 /min BP Systolic Sitting 121 mmHg BP Diastolic Sitting 58 mmHg Respiratory Rate 14 /min Pain Level 0 BMI (Body Mass Index) 25.7 kg/m2 11/12/2017 9:19am Height 67 inches 5'7" Weight 168.00 lb Heart Rate 56 /min BP Systolic Sitting 124 mmHg Lue reg cuff BP Diastolic Sitting 64 mmHg Lue reg cuff Respiratory Rate 22 /min O2 % BldC Oximetry 96 % On Ra BMI (Body Mass Index) 26.3 kg/m2 11/06/2017 10:15am Height 67 inches 5'7" Weight 168.12 lb Heart Rate 80 /min BP Systolic Sitting 138 mmHg lue reg cuff BP Diastolic Sitting 68 mmHg lue reg cuff BMI (Body Mass Index) 26.3 kg/m2 Ejection Fraction 60-65% 09/25/2017 echo 09/25/2017 2:44pm Height 67 inches 5'7" Weight 171.38 lb Heart Rate 76 /min BP Systolic Sitting 124 mmHg BP Diastolic Sitting 58 mmHg Respiratory Rate 14 /min Pain Level 0 BMI (Body Mass Index) 26.8 kg/m2 08/12/2017 4:01pm Height 67 inches 5'7" Weight 170.00 lb Heart Rate 68 /min BP Systolic Sitting 144 mmHg BP Diastolic Sitting 72 mmHg Respiratory Rate 14 /min Pain Level 0 BMI (Body Mass Index) 26.6 kg/m2 08/08/2017 3:34pm Height 67 inches 5'7" Weight 173.00 lb Heart Rate 72 /min BP Systolic Sitting 148 mmHg LA, reg cuff BP Diastolic Sitting 72 mmHg LA, reg cuff BMI (Body Mass Index) 27.1 kg/m2 Ejection Fraction 55%-60% stress test 03/14/17 08/06/2017 9:36am Height 67 inches 5'7" Heart Rate 65 /min BP Systolic 138 mmHg BP Diastolic 72 mmHg Respiratory Rate 16 /min Body Temperature 97.5 F Pain Level 0 07/12/2017 10:58am Height 67 inches 5'7" Weight 169.00 lb with coat and boots Heart Rate 66 /min BP Systolic 130 mmHg BP Diastolic 56 mmHg Pain Level 0 on prednisone O2 % BldC Oximetry 97 % BMI (Body Mass Index) 26.5 kg/m2 06/10/2017 8:19am Height 67 inches 5'7" Weight 173.75 lb w/shoes Heart Rate 62 /min BP Systolic Sitting 134 mmHg LA reg cuff BP Diastolic Sitting 58 mmHg LA reg cuff BMI (Body Mass Index) 27.2 kg/m2 Ejection Fraction 60-65% Echo 03/11/17 06/06/2017 11:01am Height 67 inches 5'7" Weight 167.00 lb BP Systolic 127 mmHg BP Diastolic 80 mmHg Respiratory Rate 18 /min Pain Level 7 BMI (Body Mass Index) 26.2 kg/m2 05/14/2017 9:13am Height 67 inches 5'7" Weight 170.00 lb Heart Rate 56 /min BP Systolic Sitting 118 mmHg BP Diastolic Sitting 62 mmHg Respiratory Rate 14 /min O2 % BldC Oximetry 98 % BMI (Body Mass Index) 26.6 kg/m2 04/08/2017 8:46am Height 67 inches 5'7" Weight 168.12 lb with shoes Heart Rate 70 /min BP Systolic Sitting 146 mmHg LA reg cuff BP Diastolic Sitting 62 mmHg LA reg cuff BMI (Body Mass Index) 26.3 kg/m2 Ejection Fraction 60%-65% echo 03/11/17 03/12/2017 9:04am Height 67 inches 5'7" Weight 162.00 lb Heart Rate 84 /min BP Systolic Sitting 120 mmHg BP Diastolic Sitting 66 mmHg Respiratory Rate 14 /min O2 % BldC Oximetry 97 % BMI (Body Mass Index) 25.4 kg/m2 02/14/2017 9:00am Height 67 inches 5'7" Weight 164.00 lb with shoes Heart Rate 70 /min BP Systolic Sitting 112 mmHg lue reg cuff BP Diastolic Sitting 62 mmHg lue reg cuff Respiratory Rate 18 /min BMI (Body Mass Index) 25.7 kg/m2 Ejection Fraction 5-60% stress echo 12/20/16 01/07/2017 10:19am Height 67 inches 5'7" Weight 163.00 lb Heart Rate 66 /min BP Systolic Sitting 120 mmHg BP Diastolic Sitting 66 mmHg Respiratory Rate 16 /min O2 % BldC Oximetry 95 % room air BMI (Body Mass Index) 25.5 kg/m2 12/31/2016 8:51am Height 67 inches 5'7" Weight 164.00 lb w/shoes Heart Rate 68 /min BP Systolic Sitting 140 mmHg LA reg cuff BP Diastolic Sitting 52 mmHg LA reg cuff O2 % BldC Oximetry 92 % BMI (Body Mass Index) 25.7 kg/m2 Ejection Fraction 60-65% Ole 12/07/16 10/24/2016 11:29am Height 67 inches 5'7" Weight 167.00 lb Heart Rate 77 /min BP Systolic Sitting 128 mmHg BP Diastolic Sitting 64 mmHg Respiratory Rate 18 /min O2 % BldC Oximetry 95 % BMI (Body Mass Index) 26.2 kg/m2 10/23/2016 8:05am Height 67 inches 5'7" Weight 167.25 lb with shoes Heart Rate 74 /min BP Systolic Sitting 136 mmHg LA reg cuff BP Diastolic Sitting 78 mmHg LA reg cuff O2 % BldC Oximetry 94 % Room air BMI (Body Mass Index) 26.2 kg/m2 Ejection Fraction 55% - 60% echo 07/09/16 09/11/2016 8:54am Height 67 inches 5'7" Heart Rate 75 /min BP Systolic Sitting 118 mmHg BP Diastolic Sitting 68 mmHg Respiratory Rate 18 /min Pain Level 0 O2 % BldC Oximetry 95 % 08/29/2016 11:33am Height 67 inches 5'7" Weight 160.75 lb w/shoes Heart Rate 64 /min BP Systolic Sitting 140 mmHg LA reg cuff BP Diastolic Sitting 78 mmHg LA reg cuff BMI (Body Mass Index) 25.2 kg/m2 Ejection Fraction 55-60% Echo 07/09/16 07/31/2016 8:20am Height 67 inches 5'7" Weight 140.00 lb Heart Rate 68 /min BP Systolic 128 mmHg BP Diastolic 82 mmHg Respiratory Rate 16 /min O2 % BldC Oximetry 96 % 1 liter BMI (Body Mass Index) 21.9 kg/m2 07/12/2016 9:43am Height 67 inches 5'7" Weight 140.31 lb with shoes Heart Rate 82 /min BP Systolic Sitting 140 mmHg Lue reg cuff BP Diastolic Sitting 70 mmHg Lue reg cuff BP Systolic Standing 144 mmHg Lue reg cuff BP Diastolic Standing 70 mmHg Lue reg cuff Respiratory Rate 17 /min BMI (Body Mass Index) 22.0 kg/m2 06/05/2016 11:21am Height 67 inches 5'7" Weight 160.00 lb w/shoes Heart Rate 74 /min BP Systolic Sitting 140 mmHg Ra reg cuff BP Diastolic Sitting 68 mmHg Ra reg cuff BMI (Body Mass Index) 25.1 kg/m2 Ejection Fraction 60-65% date 06/15/15 ECHO 02/21/2016 11:04am Height 67 inches 5'7" Weight 159.00 lb with shoes Heart Rate 58 /min BP Systolic Sitting 130 mmHg LA reg cuff BP Diastolic Sitting 60 mmHg LA reg cuff BP Systolic Standing 130 mmHg La reg cuff BP Diastolic Standing 78 mmHg La reg cuff Respiratory Rate 16 /min BMI (Body Mass Index) 24.9 kg/m2 Ejection Fraction 60-65% date 06/15/15 ECHO 01/23/2016 8:25am Height 67 inches 5'7" Weight 160.00 lb w/shoes Heart Rate 50 /min BP Systolic Sitting 150 mmHg Ra rg cuff BP Diastolic Sitting 60 mmHg Ra rg cuff BMI (Body Mass Index) 25.1 kg/m2 Ejection Fraction 60-65% Echo 06/15/15 09/20/2015 12:49pm Height 67 inches 5'7" Weight 159.00 lb w/shoes BMI (Body Mass Index) 24.9 kg/m2 Ejection Fraction 55-60% Ole 07/22/15 08/04/2015 8:25am Height 67 inches 5'7" Weight 158.50 lb with shoes Heart Rate 68 /min BP Systolic Sitting 130 mmHg LA, regular BP Diastolic Sitting 64 mmHg LA, regular BMI (Body Mass Index) 24.8 kg/m2 Ejection Fraction 60-65% echo 06/15/15 07/20/2015 9:30am Height 67 inches 5'7" Weight 156.75 lb Heart Rate 72 /min BP Systolic Sitting 134 mmHg LA, reg BP Diastolic Sitting 74 mmHg LA, reg BMI (Body Mass Index) 24.5 kg/m2 Ejection Fraction 60%-65% 06/15/15 06/21/2015 2:30pm Height 67 inches 5'7" Weight 148.00 lb with shoes Heart Rate 70 /min BP Systolic Sitting 162 mmHg LA, regular cuff BP Diastolic Sitting 74 mmHg LA, regular cuff BP Systolic Standing 138 mmHg la sitting repeat BP Diastolic Standing 64 mmHg la sitting repeat BMI (Body Mass Index) 23.2 kg/m2 Ejection Fraction 60-65% echo 06/15/15 06/14/2015 4:16pm Heart Rate 52 /min Apical BP Systolic Lying Down 146 mmHg LA, reg BP Diastolic Lying Down 74 mmHg LA, reg Body Temperature 98.9 F 04/27/2015 11:47am Height 67 inches 5'7" Weight 168.25 lb Heart Rate 73 /min BP Systolic 130 mmHg BP Diastolic 78 mmHg Respiratory Rate 14 /min O2 % BldC Oximetry 98 % BMI (Body Mass Index) 26.3 kg/m2 01/11/2015 8:47am Height 67 inches 5'7" Weight 162.00 lb w/shoes Heart Rate 74 /min BP Systolic Sitting 138 mmHg LA reg cuff BP Diastolic Sitting 82 mmHg LA reg cuff BMI (Body Mass Index) 25.4 kg/m2 Ejection Fraction 55 stress echo 10/21/14 08/19/2014 8:19am Height 67 inches 5'7" Weight 171.00 lb Heart Rate 52 /min BP Systolic Sitting 140 mmHg BP Diastolic Sitting 76 mmHg BMI (Body Mass Index) 26.8 kg/m2 08/11/2014 8:12am Heart Rate 82 /min BP Systolic Sitting 139 mmHg BP Diastolic Sitting 74 mmHg Respiratory Rate 20 /min O2 % BldC Oximetry 96 % 07/26/2014 8:38am Height 67 inches 5'7" Weight 170.25 lb Heart Rate 62 /min BP Systolic Sitting 150 mmHg LA, reg BP Diastolic Sitting 76 mmHg LA, reg BMI (Body Mass Index) 26.7 kg/m2 05/13/2014 8:58am Height 67 inches 5'7" Weight 1736.00 lb BP Systolic 148 mmHg left arm,sitting BP Diastolic 80 mmHg left arm,sitting Body Temperature 98.6 F O2 % BldC Oximetry 99 % BMI (Body Mass Index) 271.9 kg/m2 Neck Circumference in inches 976.25 04/09/2014 3:02pm Height 67 inches 5'7" Weight 168.25 lb w/shoes Heart Rate 84 /min BP Systolic Sitting 124 mmHg LA reg cuff BP Diastolic Sitting 72 mmHg LA reg cuff Respiratory Rate 18 /min BMI (Body Mass Index) 26.3 kg/m2 01/25/2014 1:07pm Height 67 inches 5'7" Weight 150.00 lb Heart Rate 74 /min BP Systolic 144 mmHg BP Diastolic 87 mmHg BMI (Body Mass Index) 23.5 kg/m2 01/21/2014 2:46pm Height 57 inches 4'9" Weight 150.00 lb Heart Rate 79 /min BP Systolic Sitting 146 mmHg BP Diastolic Sitting 68 mmHg Respiratory Rate 16 /min Body Temperature 97.7 F BMI (Body Mass Index) 32.5 kg/m2 01/11/2014 2:10pm Height 57 inches 4'9" Weight 152.00 lb Heart Rate 78 /min BP Systolic Sitting 126 mmHg BP Diastolic Sitting 70 mmHg Pain Level 5 R leg & buttock BMI (Body Mass Index) 32.9 kg/m2 08/05/2013 8:36am Height 57 inches 4'9" Heart Rate 66 /min BP Systolic 113 mmHg BP Diastolic 69 mmHg 07/30/2013 11:23am Height 67 inches 5'7" Weight 164.00 lb Heart Rate 80 /min BP Systolic Sitting 118 mmHg BP Diastolic Sitting 64 mmHg BMI (Body Mass Index) 25.7 kg/m2 07/22/2013 8:21am Height 67 inches 5'7" Weight 166.00 lb BP Systolic 132 mmHg BP Diastolic 77 mmHg BMI (Body Mass Index) 26.0 kg/m2 05/21/2013 10:59am Height 67 inches 5'7" Weight 170.00 lb Heart Rate 64 /min BP Systolic 122 mmHg BP Diastolic 78 mmHg BMI (Body Mass Index) 26.6 kg/m2 05/04/2013 1:22pm Height 67 inches 5'7" Weight 170.00 lb Heart Rate 64 /min BP Systolic Sitting 130 mmHg BP Diastolic Sitting 72 mmHg BMI (Body Mass Index) 26.6 kg/m2 04/17/2013 10:55am Height 67 inches 5'7" Weight 167.75 lb Heart Rate 54 /min BP Systolic Sitting 150 mmHg BP Diastolic Sitting 90 mmHg BMI (Body Mass Index) 26.3 kg/m2 07/02/2012 11:17am Height 67 inches 5'7" Weight 175.00 lb Heart Rate 66 /min BP Systolic 150 mmHg BP Diastolic 88 mmHg Respiratory Rate 16 /min BMI (Body Mass Index) 27.4 kg/m2 05/15/2012 3:41pm Height 67 inches 5'7" Weight 168.00 lb BP Systolic 110 mmHg BP Diastolic 70 mmHg Respiratory Rate 16 /min Body Temperature 98.5 F BMI (Body Mass Index) 26.3 kg/m2 05/02/2012 8:25am Height 67 inches 5'7" Weight 168.00 lb Heart Rate 72 /min BP Systolic 120 mmHg BP Diastolic 66 mmHg Respiratory Rate 16 /min Body Temperature 97.3 F BMI (Body Mass Index) 26.3 kg/m2 04/21/2012 1:36pm Height 67 inches 5'7" Weight 168.00 lb Heart Rate 60 /min BP Systolic 140 mmHg BP Diastolic 68 mmHg Respiratory Rate 16 /min Body Temperature 98.0 F BMI (Body Mass Index) 26.3 kg/m2 04/15/2012 10:51am Height 67 inches 5'7" Weight 168.00 lb Heart Rate 72 /min BP Systolic 126 mmHg BP Diastolic 68 mmHg Respiratory Rate 16 /min Body Temperature 98.0 F BMI (Body Mass Index) 26.3 kg/m2 05/02/2011 11:16am Height 67 inches 5'7" Weight 173.00 lb with coat and boots Heart Rate 64 /min BP Systolic 132 mmHg BP Diastolic 70 mmHg BMI (Body Mass Index) 27.1 kg/m2 08/28/2010 3:13pm Height 67 inches 5'7" Weight 177.00 lb Heart Rate 89 /min BP Systolic Sitting 144 mmHg BP Diastolic Sitting 72 mmHg BMI (Body Mass Index) 27.7 kg/m2 08/25/2009 9:13am Height 67 inches 5'7" Weight 178.00 lb Heart Rate 68 /min BP Systolic 156 mmHg BP Diastolic 82 mmHg BMI (Body Mass Index) 27.9 kg/m2 03/10/2009 1:57pm Height 67 inches 5'7" Weight 171.00 lb Heart Rate 78 /min reg BP Systolic Sitting 124 mmHg BP Diastolic Sitting 70 mmHg BMI (Body Mass Index) 26.8 kg/m2 11/23/2008 3:25pm Height 67 inches 5'7" Weight 171.00 lb Heart Rate 80 /min BP Systolic Sitting 110 mmHg BP Diastolic Sitting 70 mmHg BMI (Body Mass Index) 26.8 kg/m2 11/04/2008 8:56am Height 67 inches 5'7" Weight 173.00 lb Heart Rate 69 /min BP Systolic Sitting 142 mmHg L BP Diastolic Sitting 62 mmHg L BMI (Body Mass Index) 27.1 kg/m2 10/09/2007 3:39pm Height 67 inches 5'7" Weight 169.00 lb Heart Rate 68 /min BP Systolic Sitting 130 mmHg BP Diastolic Sitting 70 mmHg Respiratory Rate 14 /min BMI (Body Mass Index) 26.5 kg/m2 10/02/2006 8:47am Height 67 inches 5'7" Weight 174.00 lb Heart Rate 67 /min BP Systolic Sitting 130 mmHg R BP Diastolic Sitting 74 mmHg R BP Systolic Standing 132 mmHg R BP Diastolic Standing 72 mmHg R BMI (Body Mass Index) 27.2 kg/m2 04/03/2006 10:41am Height 67 inches 5'7" Weight 172.00 lb Heart Rate 82 /min BP Systolic Sitting 138 mmHg R BP Diastolic Sitting 80 mmHg R BP Systolic Standing 138 mmHg R BP Diastolic Standing 82 mmHg R BMI (Body Mass Index) 26.9 kg/m2 09/06/2005 10:14am Height 67 inches 5'7" Weight 173.00 lb Heart Rate 80 /min BP Systolic Sitting 130 mmHg L BP Diastolic Sitting 68 mmHg L BP Systolic Standing 130 mmHg L BP Diastolic Standing 70 mmHg L BMI (Body Mass Index) 27.1 kg/m2 06/07/2005 11:13am Height 67 inches 5'7" Weight 168.00 lb Heart Rate 88 /min BP Systolic Sitting 130 mmHg R BP Diastolic Sitting 70 mmHg R BP Systolic Standing 124 mmHg R BP Diastolic Standing 70 mmHg R BMI (Body Mass Index) 26.3 kg/m2 01/25/2005 4:05pm Height 67 inches 5'7" Weight 165.00 lb Heart Rate 72 /min BP Systolic Sitting 154 mmHg R BP Diastolic Sitting 70 mmHg R BP Systolic Standing 120 mmHg R BP Diastolic Standing 60 mmHg R O2 % BldC Oximetry 97 % BMI (Body Mass Index) 25.8 kg/m2 12/24/2002 9:36am Height 67 inches Weight 174.00 lb Heart Rate 58 /min BP Systolic Sitting 142 mmHg BP Diastolic Sitting 60 mmHg BP Systolic Standing 150 mmHg BP Diastolic Standing 70 mmHg BMI (Body Mass Index) 27.2 kg/m2 Results Test Date Facility Test Result H/L Range Note Basic Metabolic 05/08/2018 [facility] Sodium 142 mmol/L N 135- [address] [place] [address] [phone] Potassium 4.5 mmol/L N 3.5-5.0 Chloride 110 mmol/L N 101-111 Co2 Carbon Dioxide 26 mmol/L N 22-32 Anion Gap 6 mmol/L N 2-11 Glucose 101 mg/dL High 70-100 Blood Urea Nitrogen 31 mg/dL High 6-24 Creatinine 1.05 mg/dL N 0.67-1.17 BUN/Creatinine Ratio 29.5 High 8-20 Calcium 9.0 mg/dL N 8.6-10.3 Egfr Non- 67.3 >60 Egfr 81.4 >60 1 Laboratory test 05/08/2018 [facility] C Reactive < 1.00 mg/L N <8.[address] [place] [address] [phone] Erythrocyte Sed Rate 14 mm/Hr N 0-40 3 Laboratory test 03/27/2018 [facility] [place] Esr Sedimentation <pending> finding Rate CRP C-Reactive Protein <pending> BMP Basic Metabolic Panel (8) 03/27/2018 [facility] [place] Calcium < pending> Creatinine <pending> Sodium <pending> Carbon Dioxide <pending> Glucose Serum <pending> Uric Acid <pending> Chloride <pending> Potassium <pending> Basic Metabolic Panel 03/06/2018 [facility] Sodium 141 mmol/L N 135-[address] [place] [address] [phone] Chloride 106 mmol/L N 101-111 Co2 Carbon Dioxide 31 mmol/L N 22-32 Glucose 138 mg/dL High 70-100 Blood Urea Nitrogen 20 mg/dL N 6-24 Creatinine 1.08 mg/dL N 0.67-1.17 BUN/Creatinine Ratio 18.5 N 8-20 Calcium 9.3 mg/dL N 8.6-10.3 Egfr Non- 65.1 >60 Egfr 78.8 >60 4 Potassium 5.1 mmol/L High 3.5-5.0 Anion Gap 4 mmol/L N 2-11 Laboratory test 03/06/2018 [facility] C Reactive < 1.00 mg/L N <8.01 [address] [place] [address] [phone] Erythrocyte Sed Rate 10 mm/Hr N 0-40 6 Laboratory test 02/28/2018 [facility] B-Type 258 pg/mL High [address] [place] [address] Peptide BNP [phone] CBC Auto Diff 02/28/2018 [facility] White Blood 5.9 N 3.5-[address] Count 10^3/uL 0.8 [place] [address] [phone] Red Blood Count 3.97 10^6/uL Low 4.00-5.40 Hemoglobin 12.5 g/dL Low 14.0-18.0 Hematocrit 37 % Low 42-52 Mean Corpuscular Volume 94 fL N 80-94 Mean Corpuscular Hemoglobin 31 pg N 27-31 Mean Corpuscular HGB Conc 33 g/dL N 31-36 Red Cell Distribution Width 15 % N 10.5-15 Platelet Count 136 10^3/uL Low 150-450 Mean Platelet Volume 9.3 um3 N 7.4-10.4 Abs Neutrophils 4.4 10^3/uL N 1.5-7.7 Abs Lymphocytes 0.9 10^3/uL Low 1.0-4.8 Abs Monocytes 0.4 10^3/uL N 0-0.8 Abs Eosinophils 0.1 10^3/uL N 0-0.6 Abs Basophils 0 10^3/uL N 0-0.2 Abs Nucleated RBC 0 10^3/uL Granulocyte % 75.0 % N 38-83 Lymphocyte % 15.8 % Low 25-47 Monocyte % 7.1 % High 0-7 Eosinophil % 1.3 % N 0-6 Basophil % 0.8 % N 0-2 Nucleated Red Blood Cells % 0 Basic Metabolic Panel 02/28/2018 [facility] Sodium 141 mmol/L N 135-[address] [place] [address] [phone] Potassium 4.6 mmol/L N 3.5-5.0 Chloride 109 mmol/L N 101-111 Co2 Carbon Dioxide 30 mmol/L N 22-32 Anion Gap 2 mmol/L N 2-11 Glucose 115 mg/dL High 70-100 Blood Urea Nitrogen 22 mg/dL N 6-24 Creatinine 1.12 mg/dL N 0.67-1.17 BUN/Creatinine Ratio 19.6 N 8-20 Calcium 8.9 mg/dL N 8.6-10.3 Egfr Non- 62.5 >60 Egfr 75.6 >60 8 Lipid Panel - 02/06/2018 [facility] Creatine 31 U/L N 10-[address] Kinase(CK) [place] [address] [phone] Comp Metabolic 02/06/2018 [facility] Potassium 4.6 N 3.5-5.[address] mmol/[place] [address] [phone] Co2 Carbon Dioxide 28 mmol/L N 22-32 Glucose 101 mg/dL High 70-100 Blood Urea Nitrogen 25 mg/dL High 6-24 Creatinine 1.02 mg/dL N 0.67-1.17 BUN/Creatinine Ratio 24.5 High 8-20 Calcium 9.0 mg/dL N 8.6-10.3 Total Protein 5.9 g/dL Low 6.4-8.9 Albumin 3.8 g/dL N 3.2-5.2 Globulin 2.1 g/dL N 2-4 Albumin/Globulin Ratio 1.8 N 1-3 Total Bilirubin 0.60 mg/dL N 0.2-1.0 Alkaline Phosphatase 41 U/L N 34-104 Alt 17 U/L N 7-52 Ast 18 U/L N 13-39 Egfr Non- 69.6 >60 Egfr 84.2 >60 9 Sodium 146 mmol/L High 135-145 Chloride 113 mmol/L High 101-111 Anion Gap 5 mmol/L N 2-11 Lipid Profile 02/06/2018 [facility] Triglycerides 51 mg/dL 10 (Trig/Chol/HDL) [address] [place] [address] [phone] Cholesterol 135 mg/dL 11 HDL Cholesterol 64.2 mg/dL 12 LDL Cholesterol 61 mg/dL 13 CBC Auto Diff 02/06/2018 [facility] White Blood 6.0 10^3/uL N 3.5-10.[address] [place] [address] [phone] Red Blood Count 3.92 10^6/uL Low 4.00-5.40 Hemoglobin 12.3 g/dL Low 14.0-18.0 Hematocrit 37 % Low 42-52 Mean Corpuscular Volume 94 fL N 80-94 Mean Corpuscular Hemoglobin 31 pg N 27-31 Mean Corpuscular HGB Conc 34 g/dL N 31-36 Red Cell Distribution Width 16 % High 10.5-15 Platelet Count 136 10^3/uL Low 150-450 Mean Platelet Volume 9.5 um3 N 7.4-10.4 Abs Neutrophils 4.7 10^3/uL N 1.5-7.7 Abs Lymphocytes 0.9 10^3/uL Low 1.0-4.8 Abs Monocytes 0.3 10^3/uL N 0-0.8 Abs Eosinophils 0.1 10^3/uL N 0-0.6 Abs Basophils 0.1 10^3/uL N 0-0.2 Abs Nucleated RBC 0 10^3/uL Granulocyte % 77.8 % N 38-83 Lymphocyte % 14.6 % Low 25-47 Monocyte % 5.5 % N 0-7 Eosinophil % 1.2 % N 0-6 Basophil % 0.9 % N 0-2 Nucleated Red Blood Cells % 0.2 Basic Metabolic Panel 02/06/2018 [facility] Sodium 145 mmol/L N 135-[address] [place] [address] [phone] Potassium 4.5 mmol/L N 3.5-5.0 Co2 Carbon Dioxide 28 mmol/L N 22-32 Glucose 100 mg/dL N 70-100 Blood Urea Nitrogen 25 mg/dL High 6-24 Creatinine 1.05 mg/dL N 0.67-1.17 BUN/Creatinine Ratio 23.8 High 8-20 Calcium 9.1 mg/dL N 8.6-10.3 Egfr Non- 67.3 >60 Egfr 81.4 >60 14 Chloride 113 mmol/L High 101-111 Anion Gap 4 mmol/L N 2-11 Laboratory test 02/06/2018 [facility] C Reactive < 1.00 N < 8.01 [address] Protein mg/[place] [address] [phone] Erythrocyte Sed Rate 13 mm/Hr N 0-40 16 Basic Metabolic Panel 01/03/2018 [facility] Sodium 144 mmol/L N 135-[address] [place] [address] [phone] Potassium 5.0 mmol/L N 3.5-5.0 Chloride 108 mmol/L N 101-111 Co2 Carbon Dioxide 30 mmol/L N 22-32 Anion Gap 6 mmol/L N 2-11 Glucose 83 mg/dL N 70-100 Blood Urea Nitrogen 21 mg/dL N 6-24 Creatinine 1.10 mg/dL N 0.67-1.17 BUN/Creatinine Ratio 19.1 N 8-20 Calcium 8.9 mg/dL N 8.6-10.3 Egfr Non- 63.8 >60 Egfr 77.2 >60 17 Laboratory test 01/03/2018 [facility] C Reactive < 1.00 N < 8.01 [address] Protein mg/[place] [address] [phone] Erythrocyte Sed Rate 10 mm/Hr N 0-40 19 Laboratory test 12/16/2017 [facility] [place] Esr Sedimentation <pending> finding Rate CRP C-Reactive Protein <pending> BMP Basic Metabolic Panel (8) 12/16/2017 [facility] [place] Orders Calcium < pending> Creatinine <pending> Sodium <pending> Carbon Dioxide <pending> Glucose Serum <pending> Uric Acid <pending> Chloride <pending> Potassium <pending> Laboratory test 12/06/2017 [facility] Erythrocyte Sed 11 mm/Hr N 0-[address] [place] [address] [phone] C Reactive Protein < 1.00 mg/L N <8.01 Basic Metabolic Panel 12/06/2017 [facility] Sodium 142 mmol/L N 135-[address] [place] [address] [phone] Potassium 4.4 mmol/L N 3.5-5.0 Chloride 109 mmol/L N 101-111 Co2 Carbon Dioxide 27 mmol/L N 22-32 Anion Gap 6 mmol/L N 2-11 Glucose 113 mg/dL High 70-100 Blood Urea Nitrogen 25 mg/dL High 6-24 Creatinine 1.19 mg/dL High 0.67-1.17 BUN/Creatinine Ratio 21.0 High 8-20 Calcium 8.7 mg/dL N 8.6-10.3 Egfr Non- 58.4 >60 Egfr 70.6 >60 20 Basic Metabolic Panel 11/12/2017 [facility] Sodium 143 mmol/L N 139-[address] [place] [address] [phone] Potassium 4.5 mmol/L N 3.5-5.0 Chloride 107 mmol/L N 101-111 Co2 Carbon Dioxide 31 mmol/L N 22-32 Anion Gap 5 mmol/L N 2-11 Glucose 87 mg/dL N 70-100 Blood Urea Nitrogen 25 mg/dL High 6-24 Creatinine 1.11 mg/dL N 0.67-1.17 BUN/Creatinine Ratio 22.5 High 8-20 Calcium 9.2 mg/dL N 8.6-10.3 Egfr Non- 63.3 >60 Egfr 81.4 >60 21 Laboratory test 10/17/2017 [facility] Erythrocyte Sed 17 mm/Hr N 0-[address] [place] [address] [phone] C Reactive Protein < 1.00 mg/L N < 5.00 22 Basic Metabolic Panel 10/17/2017 [facility] Sodium 139 mmol/L N 139-[address] [place] [address] [phone] Chloride 105 mmol/L N 101-111 Co2 Carbon Dioxide 29 mmol/L N 22-32 Glucose 83 mg/dL N 70-100 Blood Urea Nitrogen 20 mg/dL N 6-24 Creatinine 1.14 mg/dL N 0.67-1.17 BUN/Creatinine Ratio 17.5 N 8-20 Calcium 8.9 mg/dL N 8.6-10.3 Egfr Non- 61.3 >60 Egfr 78.9 >60 23 Potassium 5.5 mmol/L High 3.5-5.0 Anion Gap 5 mmol/L N 2-11 Laboratory test 09/18/2017 [facility] Erythrocyte Sed 59 mm/Hr High 0-40 [address] [place] [address] [phone] C Reactive Protein 89.37 mg/L High < 5.00 25 Lipid Panel - 08/13/2017 [facility] Creatine 45 U/L N 10-223 [address] Kinase(CK) [place] [address] [phone] Comp Metabolic 08/13/2017 [facility] Sodium 141 N 133-[address] mmol/[place] [address] [phone] Potassium 4.2 mmol/L N 3.5-5.0 Chloride 106 mmol/L N 101-111 Co2 Carbon Dioxide 31 mmol/L N 22-32 Anion Gap 4 mmol/L N 2-11 Glucose 90 mg/dL N 70-100 Blood Urea Nitrogen 22 mg/dL N 6-24 Creatinine 1.04 mg/dL N 0.67-1.17 BUN/Creatinine Ratio 21.2 High 8-20 Calcium 9.0 mg/dL N 8.6-10.3 Total Protein 6.2 g/dL Low 6.4-8.9 Albumin 3.6 g/dL N 3.2-5.2 Globulin 2.6 g/dL N 2-4 Albumin/Globulin Ratio 1.4 N 1-3 Total Bilirubin 0.50 mg/dL N 0.2-1.0 Alkaline Phosphatase 44 U/L N 34-104 Alt 20 U/L N 7-52 Ast 17 U/L N 13-39 Egfr Non- 68.2 >60 Egfr 87.7 >60 27 Lipid Profile 08/13/2017 [facility] Triglycerides 53 mg/dL 28 (Trig/Chol/HDL) [address] [place] [address] [phone] Cholesterol 154 mg/dL 29 HDL Cholesterol 72.8 mg/dL 30 LDL Cholesterol 71 mg/dL 31 Laboratory test 08/13/2017 [facility] TSH (Thyroid 2.18 mcIU/mL N 0.34-5.60 [address] Stim Horm) [place] [address] [phone] Free T4 (Free Thyroxine) 0.95 ng/dL N 0.61-1.12 33 Magnesium 2.0 mg/dL N 1.9-2.7 34 CBC Auto Diff 08/13/2017 [facility] White Blood 7.6 10^3/uL N 3.5-10.[address] [place] [address] [phone] Red Blood Count 3.94 10^6/uL Low 4.0-5.4 Hemoglobin 12.2 g/dL Low 14.0-18.0 Hematocrit 36 % Low 42-52 Mean Corpuscular Volume 92 fL N 80-94 Mean Corpuscular Hemoglobin 31 pg N 27-31 Mean Corpuscular HGB Conc 34 g/dL N 31-36 Red Cell Distribution Width 17 % High 10.5-15 Platelet Count 159 10^3/uL N 150-450 Mean Platelet Volume 9 um3 N 7.4-10.4 Abs Neutrophils 4.9 10^3/uL N 1.5-7.7 Abs Lymphocytes 2.1 10^3/uL N 1.0-4.8 Abs Monocytes 0.5 10^3/uL N 0-0.8 Abs Eosinophils 0.1 10^3/uL N 0-0.6 Abs Basophils 0 10^3/uL N 0-0.2 Abs Nucleated RBC 0 10^3/uL Granulocyte % 63.8 % N 38-83 Lymphocyte % 27.8 % N 25-47 Monocyte % 7.0 % N 0-7 Eosinophil % 0.8 % N 0-6 Basophil % 0.6 % N 0-2 Nucleated Red Blood Cells % 0 Laboratory test 08/13/2017 [facility] B-Type 398 pg/mL High [address] [place] [address] Peptide BNP [phone] Iron & Iron 08/13/2017 [facility] Iron 70 g/dL N 50-21 Binding Capacity [address] [place] [address] [phone] Unsaturated Iron Binding 218 g/dL Total Iron Binding Capacity 288 g/dL N 250-450 Transferrin 206 mg/dL N 203-362 % Iron Saturation 24 % N 15-55 CBC Auto Diff 08/13/2017 [facility] White Blood 7.6 10^3/uL N 3.5-10.[address] [place] [address] [phone] Red Blood Count 3.94 10^6/uL Low 4.0-5.4 Hemoglobin 12.2 g/dL Low 14.0-18.0 Hematocrit 36 % Low 42-52 Mean Corpuscular Volume 92 fL N 80-94 Mean Corpuscular Hemoglobin 31 pg N 27-31 Mean Corpuscular HGB Conc 34 g/dL N 31-36 Red Cell Distribution Width 17 % High 10.5-15 Platelet Count 159 10^3/uL N 150-450 Mean Platelet Volume 9 um3 N 7.4-10.4 Abs Neutrophils 4.9 10^3/uL N 1.5-7.7 Abs Lymphocytes 2.1 10^3/uL N 1.0-4.8 Abs Monocytes 0.5 10^3/uL N 0-0.8 Abs Eosinophils 0.1 10^3/uL N 0-0.6 Abs Basophils 0 10^3/uL N 0-0.2 Abs Nucleated RBC 0 10^3/uL Granulocyte % 63.8 % N 38-83 Lymphocyte % 27.8 % N 25-47 Monocyte % 7.0 % N 0-7 Eosinophil % 0.8 % N 0-6 Basophil % 0.6 % N 0-2 Nucleated Red Blood Cells % 0 Lipid Panel - 08/13/2017 [facility] Creatine 45 U/L N 10-223 [address] Kinase(CK) [place] [address] [phone] Comp Metabolic 08/13/2017 [facility] Sodium 141 N 133-[address] mmol/[place] [address] [phone] Potassium 4.2 mmol/L N 3.5-5.0 Chloride 106 mmol/L N 101-111 Co2 Carbon Dioxide 31 mmol/L N 22-32 Anion Gap 4 mmol/L N 2-11 Glucose 90 mg/dL N 70-100 Blood Urea Nitrogen 22 mg/dL N 6-24 Creatinine 1.04 mg/dL N 0.67-1.17 BUN/Creatinine Ratio 21.2 High 8-20 Calcium 9.0 mg/dL N 8.6-10.3 Total Protein 6.2 g/dL Low 6.4-8.9 Albumin 3.6 g/dL N 3.2-5.2 Globulin 2.6 g/dL N 2-4 Albumin/Globulin Ratio 1.4 N 1-3 Total Bilirubin 0.50 mg/dL N 0.2-1.0 Alkaline Phosphatase 44 U/L N 34-104 Alt 20 U/L N 7-52 Ast 17 U/L N 13-39 Egfr Non- 68.2 >60 Egfr 87.7 >60 37 Lipid Profile 08/13/2017 [facility] Triglycerides 53 mg/dL 38 (Trig/Chol/HDL) [address] [place] [address] [phone] Cholesterol 154 mg/dL 39 HDL Cholesterol 72.8 mg/dL 40 LDL Cholesterol 71 mg/dL 41 Laboratory test 08/13/2017 [facility] Magnesium 2.0 mg/dL N 1.9-2.[address] [place] [address] [phone] TSH (Thyroid Stim Horm) 2.18 mcIU/mL N 0.34-5.60 43 Free T4 (Free Thyroxine) 0.95 ng/dL N 0.61-1.12 44 B-Type Natriuretic Peptide BNP 398 pg/mL High 45 Iron & Iron Binding 08/13/2017 [facility] Iron 70 g/dL N 50- [address] [place] [address] [phone] Unsaturated Iron Binding 218 g/dL Total Iron Binding Capacity 288 g/dL N 250-450 Transferrin 206 mg/dL N 203-362 % Iron Saturation 24 % N 15-55 Laboratory test 08/07/2017 [facility] Erythrocyte Sed 31 mm/Hr N 0-[address] [place] [address] [phone] C Reactive Protein 39.90 mg/L High < 5.00 47 Laboratory test 07/12/2017 [facility] Erythrocyte Sed 18 mm/Hr N 0-[address] [place] [address] [phone] C Reactive Protein < 1.00 mg/L N < 5.00 49 CBC Auto Diff 01/24/2017 [facility] White Blood 4.4 10^3/uL N 3.5-10.8 [place] [address] [phone] Red Blood Count 3.75 10^6/uL Low 4.0-5.4 Hemoglobin 9.5 g/dL Low 14.0-18.0 Hematocrit 30 % Low 42-52 Mean Corpuscular Volume 81 fL N 80-94 Mean Corpuscular Hemoglobin 25 pg Low 27-31 Mean Corpuscular HGB Conc 31 g/dL N 31-36 Red Cell Distribution Width 21 % High 10.5-15 Platelet Count 192 10^3/uL N 150-450 Mean Platelet Volume 8 um3 N 7.4-10.4 Abs Neutrophils 2.7 10^3/uL N 1.5-7.7 Abs Lymphocytes 1.2 10^3/uL N 1.0-4.8 Abs Monocytes 0.4 10^3/uL N 0-0.8 Abs Eosinophils 0.1 10^3/uL N 0-0.6 Abs Basophils 0.1 10^3/uL N 0-0.2 Abs Nucleated RBC 0 10^3/uL N Granulocyte % 60.9 % N 38-83 Lymphocyte % 27.8 % N 25-47 Monocyte % 8.5 % N 1-9 Eosinophil % 1.5 % N 0-6 Basophil % 1.3 % N 0-2 Nucleated Red Blood Cells % 0.1 N Laboratory test 01/24/2017 [facility] Free T4 (Free 0.99 ng/dL N 0.61-1.12 [address] Thyroxine) [place] [address] [phone] Magnesium 2.3 mg/dL N 1.9-2.7 51 Lipid Profile 01/24/2017 [facility] Triglycerides 56 mg/dL N 52 (Trig/Chol/HDL) [address] [place] [address] [phone] Cholesterol 117 mg/dL N 53 HDL Cholesterol 45.5 mg/dL N 54 LDL Cholesterol 60 mg/dL N 55 Lipid Panel - 01/24/2017 [facility] Creatine Kinase(CK) 47 U/L N 10-223 [address] [place] [address] [phone] Leukemia/Lymp 06/20/2016 [facility] Path Interpretation TNP N carine Phenot [address] 2-[address] [place] [address] [phone] Path Interpret > 16 Marker TNP N Path Interpret 9-15 Marker (SEE NOTE) N 57 Leukemia/Lymphoma Flow 06/20/2016 [facility] Path Interpretation TNP N [address] 2-[address] [place] [address] [phone] Path Interpret > 16 Marker TNP N Path Interpret 9-15 Marker (SEE NOTE) N 58 Laboratory test 06/20/2016 [facility] Cytology SEE RESULT [address] Non-Multiple [place] [address] [phone] Inr/Protime 06/20/2016 [facility] Inr 1.77 High 0.89- [address] 1[address] [place] [address] [phone] Lipid Panel - 05/30/2016 [facility] Creatine 51 U/L N 10-22 [address] Kinase(CK) 3 [place] [address] [phone] Comp Metabolic 05/30/2016 [facility] Sodium 136 mmol/L N 133- [address] [place] [address] [phone] Potassium 4.1 mmol/L N 3.5-5.0 Chloride 105 mmol/L N 101-111 Co2 Carbon Dioxide 26 mmol/L N 22-32 Anion Gap 5 mmol/L N 2-11 Glucose 98 mg/dL N 70-100 Blood Urea Nitrogen 23 mg/dL N 6-24 Creatinine 1.10 mg/dL N 0.67-1.17 BUN/Creatinine Ratio 20.9 High 8-20 Calcium 7.9 mg/dL Low 8.6-10.3 Total Protein 6.1 g/dL Low 6.4-8.9 Albumin 2.9 g/dL Low 3.2-5.2 Globulin 3.2 g/dL N 2-4 Albumin/Globulin Ratio 0.9 Low 1-3 Total Bilirubin 0.50 mg/dL N 0.2-1.0 Alkaline Phosphatase 57 U/L N 34-104 Alt 14 U/L N 7-52 Ast 22 U/L N 13-39 Egfr Non- 64.1 N >60 Egfr 82.4 N >60 62 Lipid Profile 05/30/2016 [facility] Triglycerides 61 mg/dL N 63 (Trig/Chol/HDL) [address] [place] [address] [phone] Cholesterol 101 mg/dL N 64 HDL Cholesterol 38.8 mg/dL N 65 LDL Cholesterol 50 mg/dL N 66 Laboratory test 05/30/2016 [facility] TSH (Thyroid 0.49 mcIU/mL N 0.34-5.60 [address] Stim Horm) [place], [place] [id number] [phone] Erythrocyte Sed Rate 113 mm/Hr High 0-40 68 CBC Auto Diff 05/30/2016 [facility] White Blood 7.3 10^3/uL N 3.5-10.[address] [place] [address] [phone] Red Blood Count 3.74 10^6/uL Low 4.0-5.4 Hemoglobin 11.2 g/dL Low 14.0-18.0 Hematocrit 34 % Low 42-52 Mean Corpuscular Volume 90 fL N 80-94 Mean Corpuscular Hemoglobin 30 pg N 27-31 Mean Corpuscular HGB Conc 33 g/dL N 31-36 Red Cell Distribution Width 15 % N 10.5-15 Platelet Count 252 10^3/uL N 150-450 Mean Platelet Volume 9 um3 N 7.4-10.4 Abs Neutrophils 5.8 10^3/uL N 1.5-7.7 Abs Lymphocytes 0.8 10^3/uL Low 1.0-4.8 Abs Monocytes 0.5 10^3/uL N 0-0.8 Abs Eosinophils 0.2 10^3/uL N 0-0.6 Abs Basophils 0 10^3/uL N 0-0.2 Abs Nucleated RBC 0.01 10^3/uL N Granulocyte % 79.2 % N 38-83 Lymphocyte % 10.7 % Low 25-47 Monocyte % 7.2 % N 1-9 Eosinophil % 2.3 % N 0-6 Basophil % 0.6 % N 0-2 Nucleated Red Blood Cells % 0.1 N Laboratory test 05/30/2016 [facility] B-Type 200 pg/mL High [address] [place] [address] Peptide BNP [phone] CBC Auto Diff 09/21/2015 [facility] White Blood 4.7 N 3.5-[address] Count 10^3/uL 0.8 [place], [place] [id number] [phone] Red Blood Count 3.88 10^6/uL Low 4.0-5.4 Hemoglobin 12.1 g/dL Low 14.0-18.0 Hematocrit 37 % Low 42-52 Mean Corpuscular Volume 96 fL High 80-94 Mean Corpuscular Hemoglobin 31 pg N 27-31 Mean Corpuscular HGB Conc 33 g/dL N 31-36 Red Cell Distribution Width 16 % High 10.5-15 Platelet Count 141 10^3/uL Low 150-450 Mean Platelet Volume 9 um3 N 7.4-10.4 Abs Neutrophils 2.4 10^3/uL N 1.5-7.7 Abs Lymphocytes 1.7 10^3/uL N 1.0-4.8 Abs Monocytes 0.4 10^3/uL N 0-0.8 Abs Eosinophils 0.2 10^3/uL N 0-0.6 Abs Basophils 0 10^3/uL N 0-0.2 Abs Nucleated RBC 0.01 10^3/uL N Granulocyte % 51.5 % N 38-83 Lymphocyte % 35.6 % N 25-47 Monocyte % 8.6 % N 1-9 Eosinophil % 3.5 % N 0-6 Basophil % 0.8 % N 0-2 Nucleated Red Blood Cells % 0.2 N Laboratory test 09/21/2015 [facility] Magnesium 2.2 mg/dL N 1.9-2.7 finding [address] [place] [address] [phone] Free T4 (Free Thyroxine) 1.29 ng/dL High 0.61-1.12 TSH (Thyroid Stim Horm) 2.08 ?IU/mL N 0.34-5.60 Lipid Profile 09/21/2015 [facility] Triglycerides 77 mg/dL N 70 (Trig/Chol/HDL) [address] [place] [address] [phone] Cholesterol 153 mg/dL N 71 HDL Cholesterol 65.5 mg/dL N 72 LDL Cholesterol 72 mg/dL N 73 Comp Metabolic Panel 09/21/2015 [facility] Sodium 137 mmol/L N 133-145 [address] [place] [address] [phone] Potassium 4.4 mmol/L N 3.5-5.0 Chloride 104 mmol/L N 101-111 Albumin 3.7 g/dL N 3.2-5.2 Alkaline Phosphatase 48 U/L N 34-104 Alt 17 U/L N 7-52 Ast 18 U/L N 13-39 Total Bilirubin 0.50 mg/dL N 0.2-1.0 Co2 Carbon Dioxide 28 mmol/L N 22-32 Anion Gap 5 mmol/L N 2-11 Glucose 87 mg/dL N 70-100 Blood Urea Nitrogen 21 mg/dL N 6-24 Creatinine 1.06 mg/dL N 0.67-1.17 BUN/Creatinine Ratio 19.8 N 8-20 Calcium 8.5 mg/dL Low 8.6-10.3 Total Protein 6.1 g/dL Low 6.4-8.9 Globulin 2.4 g/dL N 2-4 Albumin/Globulin Ratio 1.5 N 1-3 Egfr Non- 67.1 N >60 Egfr 86.2 N >60 74 Lipid Panel - 09/21/2015 [facility] Creatine 54 U/L N 10-[address] Kinase(CK) [place] [address] [phone] Laboratory test 07/20/2015 [facility] TSH (Thyroid 1.41 N 0.34 -5.[address] Stim Horm) ?IU/[place] [address] [phone] Free T4 (Free Thyroxine) 1.12 ng/dL N 0.61-1.12 Inr/Protime 07/20/2015 [facility] Inr 1.69 High 0.89-1.11 [address] [place] [address] [phone] Laboratory test 07/20/2015 [facility] Magnesium 2.0 mg/dL N 1.9-2.7 finding [address] [place] [address] [phone] Comp Metabolic 07/20/2015 [facility] Sodium 137 mmol/L N 133- 145 Panel [address] [place] [address] [phone] Potassium 4.5 mmol/L N 3.5-5.0 Chloride 105 mmol/L N 101-111 Co2 Carbon Dioxide 28 mmol/L N 22-32 Anion Gap 4 mmol/L N 2-11 Glucose 96 mg/dL N 70-100 Blood Urea Nitrogen 24 mg/dL N 6-24 Creatinine 1.26 mg/dL High 0.67-1.17 BUN/Creatinine Ratio 19.0 N 8-20 Calcium 8.8 mg/dL N 8.6-10.3 Total Protein 6.1 g/dL Low 6.4-8.9 Albumin 3.6 g/dL N 3.2-5.2 Globulin 2.5 g/dL N 2-4 Albumin/Globulin Ratio 1.4 N 1-3 Total Bilirubin 0.60 mg/dL N 0.2-1.0 Alkaline Phosphatase 59 U/L N 34-104 Alt 34 U/L N 7-52 Ast 23 U/L N 13-39 Egfr Non- 54.9 N >60 Egfr 70.6 N >60 75 CBC Auto Diff 07/20/2015 [facility] White Blood 6.6 10^3/uL N 3.5-10.[address] [place] [address] [phone] Red Blood Count 3.70 10^6/uL Low 4.0-5.4 Hemoglobin 11.4 g/dL Low 14.0-18.0 Hematocrit 35 % Low 42-52 Mean Corpuscular Volume 94 fL N 80-94 Mean Corpuscular Hemoglobin 31 pg N 27-31 Mean Corpuscular HGB Conc 33 g/dL N 31-36 Red Cell Distribution Width 17 % High 10.5-15 Platelet Count 211 10^3/uL N 150-450 Mean Platelet Volume 9 um3 N 7.4-10.4 Abs Neutrophils 4.9 10^3/uL N 1.5-7.7 Abs Lymphocytes 1.2 10^3/uL N 1.0-4.8 Abs Monocytes 0.4 10^3/uL N 0-0.8 Abs Eosinophils 0.1 10^3/uL N 0-0.6 Abs Basophils 0 10^3/uL N 0-0.2 Abs Nucleated RBC 0 10^3/uL N Granulocyte % 73.6 % N 38-83 Lymphocyte % 17.9 % Low 25-47 Monocyte % 6.3 % N 1-9 Eosinophil % 1.5 % N 0-6 Basophil % 0.7 % N 0-2 Nucleated Red Blood Cells % 0.1 N Laboratory test 06/25/2015 [facility] Magnesium 2.1 mg/dL N 1.9-2.7 [address] [place] [address] [phone] Creatine Kinase 25 U/L N 10-223 77 TSH (Thyroid Stim Horm) 3.57 ?IU/mL N 0.34-5.60 78 Free T4 (Free Thyroxine) 1.50 ng/mL High 0.61-1.12 79 Lipid Profile 06/25/2015 [facility] Triglycerides 66 mg/dL N 80 (Trig/Chol/HDL) [address] [place] [address] [phone] Cholesterol 111 mg/dL N 81 HDL Cholesterol 55.9 mg/dL N 82 LDL Cholesterol 42 mg/dL N 83 Comp Metabolic Panel 06/25/2015 [facility] Sodium 135 mmol/L N 133-[address] [place] [address] [phone] Potassium 4.5 mmol/L N 3.5-5.0 Chloride 101 mmol/L N 101-111 Co2 Carbon Dioxide 28 mmol/L N 22-32 Anion Gap 6 mmol/L N 2-11 Glucose 97 mg/dL N 70-100 Blood Urea Nitrogen 21 mg/dL N 6-24 Creatinine 1.16 mg/dL N 0.67-1.17 BUN/Creatinine Ratio 18.1 N 8-20 Calcium 8.3 mg/dL Low 8.6-10.3 Total Protein 6.6 g/dL N 6.4-8.9 Albumin 3.4 g/dL N 3.2-5.2 Globulin 3.2 g/dL N 2-4 Albumin/Globulin Ratio 1.1 N 1-3 Total Bilirubin 0.60 mg/dL N 0.2-1.0 Alkaline Phosphatase 117 U/L High 34-104 Alt 25 U/L N 7-52 Ast 18 U/L N 13-39 Egfr Non- 60.4 N >60 Egfr 77.7 N >60 84 CBC Auto Diff 06/25/2015 [facility] White Blood 7.8 10^3/uL N 3.5-10.[address] [place] [address] [phone] Red Blood Count 3.99 10^6/uL Low 4.0-5.4 Hemoglobin 11.8 g/dL Low 14.0-18.0 Hematocrit 38 % Low 42-52 Mean Corpuscular Volume 94 fL N 80-94 Mean Corpuscular Hemoglobin 30 pg N 27-31 Mean Corpuscular HGB Conc 32 g/dL N 31-36 Red Cell Distribution Width 16 % High 10.5-15 Platelet Count 235 10^3/uL N 150-450 Mean Platelet Volume 9 um3 N 7.4-10.4 Abs Neutrophils 5.3 10^3/uL N 1.5-7.7 Abs Lymphocytes 1.7 10^3/uL N 1.0-4.8 Abs Monocytes 0.6 10^3/uL N 0-0.8 Abs Eosinophils 0.1 10^3/uL N 0-0.6 Abs Basophils 0.1 10^3/uL N 0-0.2 Abs Nucleated RBC 0 10^3/uL N Granulocyte % 68.4 % N 38-83 Lymphocyte % 21.7 % Low 25-47 Monocyte % 8.1 % N 1-9 Eosinophil % 0.8 % N 0-6 Basophil % 1.0 % N 0-2 Nucleated Red Blood Cells % 0 N CBC Auto Diff 05/07/2015 [facility] White Blood 7.8 10^3/uL N 4.8-10.[address] [place] [address] [phone] Red Blood Count 3.94 10^6/uL Low 4.0-5.4 Hemoglobin 12.2 g/dL Low 14.0-18.0 Hematocrit 36 % Low 42-52 Mean Corpuscular Volume 92 fL N 80-94 Mean Corpuscular Hemoglobin 31 pg N 27-31 Mean Corpuscular HGB Conc 34 g/dL N 31-36 Red Cell Distribution Width 15 % N 10.5-15 Platelet Count 181 10^3/uL N 150-450 Mean Platelet Volume 8 um3 N 7.4-10.4 Abs Neutrophils 6.6 10^3/uL N 1.5-7.7 Abs Lymphocytes 0.6 10^3/uL Low 1.0-4.8 Abs Monocytes 0.6 10^3/uL N 0-0.8 Abs Eosinophils 0 10^3/uL N 0-0.6 Abs Basophils 0 10^3/uL N 0-0.2 Abs Nucleated RBC 0 10^3/uL N Granulocyte % 84.7 % High 38-83 Lymphocyte % 7.5 % Low 25-47 Monocyte % 7.1 % N 1-9 Eosinophil % 0.1 % N 0-6 Basophil % 0.6 % N 0-2 Nucleated Red Blood Cells % 0 N Urinalysis Profile 05/07/2015 [facility] Urine Color Summer N [address] [place] [address] [phone] Urine Appearance Cloudy N Urine Specific [place] 1.025 N 1.010-1.030 Urine pH 5.0 N 5-9 Urine Urobilinogen Positive Abnormal Negative Urine Ketones Trace Abnormal Negative Urine Protein 2+(100 mg/dL) Abnormal Negative Urine Leukocytes 2+ Abnormal Negative Urine Blood 2+ Abnormal Negative Urine Nitrite Negative N Negative Urine Bilirubin 1+ N Negative Urine Glucose 1+(50 mg/dL) Abnormal Negative Urine White Blood Cell 3+(>20/hpf) Abnormal Absent Urine Red Blood Cell 3+(>10/hpf) Abnormal Absent Urine Bacteria 3+ Abnormal Absent Inr/Protime 05/07/2015 [facility] Inr 1.28 High 0.89-1.11 [address] [place] [address] [phone] Laboratory test 05/07/2015 [facility] Partial 32.3 N 26.0- 36.3 finding [address] [facility] [place] [address] Time PTT [phone] Lactic Acid 0.8 mmol/L N 0.5-2.2 Comp Metabolic Panel 05/07/2015 [facility] Sodium 130 mmol/L Low 133-145 [address] [place] [address] [phone] Potassium 4.4 mmol/L N 3.5-5.0 Chloride 100 mmol/L Low 101-111 Co2 Carbon Dioxide 22 mmol/L N 22-32 Anion Gap 8 mmol/L N 2-11 Glucose 147 mg/dL High 70-100 Blood Urea Nitrogen 23 mg/dL N 6-24 Creatinine 1.22 mg/dL High 0.67-1.17 BUN/Creatinine Ratio 18.9 N 8-20 Calcium 8.7 mg/dL N 8.6-10.3 Total Protein 6.9 g/dL N 6.4-8.9 Albumin 3.3 g/dL N 3.2-5.2 Globulin 3.6 g/dL N 2-4 Albumin/Globulin Ratio 0.9 Low 1-3 Total Bilirubin 1.10 mg/dL High 0.2-1.0 Alkaline Phosphatase 320 U/L High 34-104 Alt 140 U/L High 7-52 Ast 59 U/L High 13-39 Egfr Non- 57.0 N >60 Egfr 73.3 N >60 85 Laboratory test 05/07/2015 [facility] Troponin-I 0.04 ng/mL High <0.03 [address] (TnI) [place] [address] [phone] Blood Culture SEE RESULT BELOW 87 Urine Culture And Sensitivities SEE RESULT BELOW 88 CBC Auto Diff 02/15/2015 [facility] White Blood 5.3 10^3/uL N 4.8-10.[address] [place] [address] [phone] Red Blood Count 4.23 10^6/uL N 4.0-5.4 Hemoglobin 13.4 g/dL Low 14.0-18.0 Hematocrit 40 % Low 42-52 Mean Corpuscular Volume 95 fL High 80-94 Mean Corpuscular Hemoglobin 32 pg High 27-31 Mean Corpuscular HGB Conc 33 g/dL N 31-36 Red Cell Distribution Width 14 % N 10.5-15 Platelet Count 159 10^3/uL N 150-450 Mean Platelet Volume 9 um3 N 7.4-10.4 Abs Neutrophils 3.6 10^3/uL N 1.5-7.7 Abs Lymphocytes 1.2 10^3/uL N 1.0-4.8 Abs Monocytes 0.4 10^3/uL N 0-0.8 Abs Eosinophils 0.1 10^3/uL N 0-0.6 Abs Basophils 0 10^3/uL N 0-0.2 Abs Nucleated RBC 0 10^3/uL N Granulocyte % 67.8 % N 38-83 Lymphocyte % 23.0 % Low 25-47 Monocyte % 6.8 % N 1-9 Eosinophil % 2.0 % N 0-6 Basophil % 0.4 % N 0-2 Nucleated Red Blood Cells % 0 N Basic Metabolic Panel 02/15/2015 [facility] Sodium 138 mmol/L N 133-[address] [place] [address] [phone] Potassium 4.7 mmol/L N 3.5-5.0 Chloride 106 mmol/L N 101-111 Co2 Carbon Dioxide 28 mmol/L N 22-32 Anion Gap 4 mmol/L N 2-11 Glucose 80 mg/dL N 70-100 Blood Urea Nitrogen 20 mg/dL N 6-24 Creatinine 1.31 mg/dL High 0.67-1.17 BUN/Creatinine Ratio 15.3 N 8-20 Calcium 8.4 mg/dL Low 8.6-10.3 Egfr Non- 52.5 N >60 Egfr 67.5 N >60 89 Laboratory test 01/26/2015 [facility] Blood Urea 20 mg/dL N 6- [address] [place] [address] [phone] Creatinine 01/26/2015 [facility] Creatinine 0.97 mg/dL N 0.67- 1.[address] [place] [address] [phone] Egfr Non- 74.3 N >60 Egfr 95.5 N >60 90 Lipid Panel - [facility] 04/14/2014 Creatine Kinase 44 U/L N 10-223 91, 92 Comp Metabolic Panel 04/14/2014 Sodium 140 mmol/L N 133-145 Potassium 4.4 mmol/L N 3.5-5.0 93 Chloride 105 mmol/L N 101-111 Co2 Carbon Dioxide 31 mmol/L N 22-32 Anion Gap 4 mmol/L N 2-11 Glucose 99 mg/dL N 70-100 Blood Urea Nitrogen 23 mg/dL N 6-24 Creatinine 1.09 mg/dL N 0.67-1.17 BUN/Creatinine Ratio 21.1 High 8-20 Calcium 9.1 mg/dL N 8.6-10.3 Total Protein 6.5 g/dL N 6.4-8.9 Albumin 3.8 g/dL N 3.2-5.2 Globulin 2.7 g/dL N 2-4 Albumin/Globulin Ratio 1.4 N 1-3 Total Bilirubin 0.60 mg/dL N 0.2-1.0 Alkaline Phosphatase 47 U/L N 34-104 Alt 13 U/L N 7-52 Ast 18 U/L N 13-39 Egfr Non- 65.1 N >60 Egfr 83.7 N >60 94 Lipid Profile (Trig/Chol/HDL) 04/14/2014 Triglycerides 111 mg/dL N 95 Cholesterol 190 mg/dL N 96 HDL Cholesterol 59.9 mg/dL N 97 LDL Cholesterol 108 mg/dL N 98 CBC Auto Diff 04/14/2014 White Blood Count 5.9 10^3/uL N 4.8-10.8 Red Blood Count 4.51 10^6/uL N 4.0-5.4 Hemoglobin 14.3 g/dL N 14.0-18.0 Hematocrit 43 % N 42-52 Mean Corpuscular Volume 95 fL High 80-94 Mean Corpuscular Hemoglobin 32 pg High 27-31 Mean Corpuscular HGB Conc 33 g/dL N 31-36 Red Cell Distribution Width 14 % N 10.5-15 Platelet Count 183 10^3/uL N 150-450 Mean Platelet Volume 9 um3 N 7.4-10.4 Abs Neutrophils 3.8 10^3/uL N 1.5-7.7 Abs Lymphocytes 1.5 10^3/uL N 1.0-4.8 Abs Monocytes 0.4 10^3/uL N 0-0.8 Abs Eosinophils 0.2 10^3/uL N 0-0.6 Abs Basophils 0 10^3/uL N 0-0.2 Abs Nucleated RBC 0 10^3/uL N Granulocyte % 64.9 % N 38-83 Lymphocyte % 24.7 % Low 25-47 Monocyte % 7.0 % N 1-9 Eosinophil % 2.8 % N 0-6 Basophil % 0.6 % N 0-2 Nucleated Red Blood Cells % 0 N Laboratory test 04/14/2014 Magnesium 2.0 mg/dL N 1.9-2.7 99 finding Order 09/08/2013 [facility] Stress Test, <pending> [address] [place] [address] Echocardiogram [phone] Basic Metabolic 06/22/2013 [facility] Sodium 139 mmol/L 133- [address] [place], [place] [address] [phone] Potassium 4.4 mmol/L 3.5-5.0 Chloride 102 mmol/L 101-111 Co2 Carbon Dioxide 26.0 mmol/L 22-32 Anion Gap 11.0 mmol/L 2-11 Glucose 80 mg/dL 70-100 Blood Urea Nitrogen 15 mg/dL 6-24 Creatinine 0.90 mg/dL 0.50-1.40 BUN/Creatinine Ratio 16.7 8-20 Calcium 8.4 mg/dL 8.1-9.9 Egfr Non- 81.4 >60 Egfr 104.7 >60 100 Inr/Protime 04/22/2013 [facility] Inr 1.01 0.85-1.[address] [place] [address] [phone] Basic Metabolic 04/22/2013 [facility] Sodium 140 mmol/L 133- [address] [place] [address] [phone] Potassium 4.3 mmol/L 3.5-5.0 Chloride 109 mmol/L 101-111 Co2 Carbon Dioxide 25.0 mmol/L 22-32 Anion Gap 6.0 mmol/L 2-11 Glucose 118 mg/dL High 70-100 Blood Urea Nitrogen 18 mg/dL 6-24 Creatinine 0.90 mg/dL 0.50-1.40 BUN/Creatinine Ratio 20.0 8-20 Calcium 8.6 mg/dL 8.1-9.9 Egfr Non- 81.4 >60 Egfr 104.7 >60 102 CBC Auto Diff 04/22/2013 [facility] White Blood 5.5 10^3/uL 4.8-10.[address] [place] [address] [phone] Red Blood Count 4.28 10^6/uL 4.0-5.4 Hemoglobin 13.4 g/dL Low 14.0-18.0 Hematocrit 39 % Low 42-52 Mean Corpuscular Volume 92 fL 80-94 Mean Corpuscular Hemoglobin 31 pg 27-31 Mean Corpuscular HGB Conc 34 g/dL 31-36 Red Cell Distribution Width 14 % 10.5-15 Platelet Count 179 10^3/uL 150-450 Mean Platelet Volume 10 um3 7.4-10.4 Abs Neutrophils 3.7 10^3/uL 1.5-7.7 Abs Lymphocytes 1.4 10^3/uL 1.0-4.8 Abs Monocytes 0.2 10^3/uL 0-0.8 Abs Eosinophils 0.1 10^3/uL 0-0.6 Abs Basophils 0 10^3/uL 0-0.2 Abs Nucleated RBC 0 10^3/uL Granulocyte % 67.3 % 38-83 Lymphocyte % 25.9 % 25-47 Monocyte % 4.5 % 1-9 Eosinophil % 1.4 % 0-6 Basophil % 0.9 % 0-2 Nucleated Red Blood Cells % 0.1 Cath Panel 04/22/2013 [facility] Activated 28.8 24.0-36.[address] [place] [address] Time [phone] Laboratory test 04/22/2013 [facility] TSH (Thyroid 0.91 miu/mL 0.34-5.[address] [place] [address] Horm) [phone] Basic Metabolic 05/13/2012 [facility] Sodium 137 mmol/L 133- [address] [place] [address] [phone] Potassium 4.4 mmol/L 3.5-5.0 Chloride 107 mmol/L 101-111 Co2 Carbon Dioxide 27.0 mmol/L 22-32 Anion Gap 3.0 mmol/L 2-11 Glucose 72 mg/dL 70-100 Blood Urea Nitrogen 12 mg/dL 6-24 Creatinine 0.80 mg/dL 0.50-1.40 BUN/Creatinine Ratio 15.0 8-20 Calcium 8.6 mg/dL 8.1-9.9 Egfr Non- 93.5 >60 Egfr 120.2 >60 103 Laboratory test 05/13/2012 [facility] C Reactive < 0.5 mg/dL Less than finding [address] Protein 0.5 [place] [address] [phone] CBC Auto Diff 05/13/2012 [facility] White Blood 5.3 10^3/uL 4.8-10.[address] [place] [address] [phone] Red Blood Count 4.33 10^6/uL 4.0-5.4 Hemoglobin 13.7 g/dL Low 14.0-18.0 Hematocrit 41 % Low 42-52 Mean Corpuscular Volume 94 fL 80-94 Mean Corpuscular Hemoglobin 32 pg High 27-31 Mean Corpuscular HGB Conc 34 g/dL 31-36 Red Cell Distribution Width 14 % 10.5-15 Platelet Count 173 10^3/uL 150-450 Mean Platelet Volume 10 um3 7.4-10.4 Abs Neutrophils 3.2 10^3/uL 1.5-7.7 Abs Lymphocytes 1.6 10^3/uL 1.0-4.8 Abs Monocytes 0.3 10^3/uL 0-0.8 Abs Eosinophils 0.1 10^3/uL 0-0.6 Abs Basophils 0.1 10^3/uL 0-0.2 Abs Nucleated RBC 0 10^3/uL Granulocyte % 59.9 % 38-83 Lymphocyte % 30.4 % 25-47 Monocyte % 6.0 % 1-9 Eosinophil % 2.7 % 0-6 Basophil % 1.0 % 0-2 Nucleated Red Blood Cells % 0.1 Laboratory test 05/13/2012 [facility] Erythrocyte Sed 14 mm/Hr 0-[address] [place] [address] [phone] Laboratory test 04/28/2012 [facility] C Reactive < 0.5 Less Than finding [address] Protein mg/dL 0.5 [place] [address] [phone] Erythrocyte Sed Rate 42 MM/HR High 0-40 Comp Metabolic Panel 04/28/2012 [facility] Sodium 143 mmol/L 133-[address] [place] [address] [phone] Potassium 4.2 mmol/L 3.5-5.0 Chloride 111 mmol/L 101-111 Co2 Carbon Dioxide 29.0 mmol/L 22-32 Anion Gap 3.0 mmol/L 2-11 Glucose 68 mg/dL Low 70-100 Blood Urea Nitrogen 13 mg/dL 6-24 Creatinine 0.90 mg/dL 0.50-1.40 BUN/Creatinine Ratio 14.4 8-20 Calcium 8.8 mg/dL 8.1-9.9 Total Protein 6.4 GM/DL 6.2-8.1 Albumin 3.6 GM/DL 3.2-5.2 Globulin 2.8 GM/DL 2-4 Albumin/Globulin Ratio 1.3 1-3 Total Bilirubin 0.5 mg/dL 0.1-1.0 104 Alkaline Phosphatase 71 U/L 30-110 Alt 18 U/L 14-54 Ast 20 U/L 12-42 Egfr Non- 81.6 >60 Egfr 105.0 >60 105 CBC Auto 04/28/2012 [facility] White Blood 4.7 10^3/uL Low 4.8 -10.[address] [place] [address] [phone] Red Blood Count 4.32 10^6/uL 4.0-5.4 Hemoglobin 13.7 g/dL Low 14.0-18.0 Hematocrit 40 % Low 42-52 Mean Corpuscular Volume 93 fL 80-94 Mean Corpuscular Hemoglobin 32 pg High 27-31 Mean Corpuscular HGB Conc 34 g/dL 31-36 Red Cell Distribution Width 14 % 10.5-15 Platelet Count 228 10^3/uL 150-450 Mean Platelet Volume 9 um3 7.4-10.4 Abs Neutrophils 3.2 10^3/uL 1.5-7.7 Abs Lymphocytes 1.1 10^3/uL 1.0-4.8 Abs Monocytes 0.3 10^3/uL 0-0.8 Abs Eosinophils 0.1 10^3/uL 0-0.6 Abs Basophils 0 10^3/uL 0-0.2 Abs Nucleated RBC 0 10^3/uL Granulocyte % 67.4 % 38-83 Lymphocyte % 23.0 % Low 25-47 Monocyte % 6.3 % 1-9 Eosinophil % 2.4 % 0-6 Basophil % 0.9 % 0-2 Nucleated Red Blood Cells % 0.1 Blood Culture 04/20/2012 [facility] Blood Culture (SEE NOTE) [address] [place] [address] [phone] Lipid Profile 11/02/2010 [facility] Triglyceride 58 mg/dL 40- 200 (Trig/Chol/HDL [address] ) [place] [address] [phone] Cholesterol 157 mg/dL Less Than 200 107 High Density Lipoprotein 63 mg/dL High 40-60 108 Cholesterol/HDL Ratio 2.49 AVERAGE 1-4.97 Low Density Lipoprotein 82 mg/dL Less Than 100 109 Comp Metabolic Panel 11/02/2010 [facility] Sodium 140 mmol/L 135-[address] [place] [address] [phone] Potassium 4.6 mmol/L 3.5-5.0 Chloride 106 mmol/L 101-111 Co2 (Carbon Dioxide) 27.0 mmol/L 22-32 Anion Gap 7.0 mmol/L 2-11 110 Glucose 98 mg/dL 70-100 BUN 17 mg/dL 6-24 Creatinine 1.00 mg/dL 0.50-1.40 One Over Creatinine 1.00 BUN/Creatinine Ratio 17.0 8-20 Calcium 8.8 mg/dL 8.1-9.9 Total Protein 6.7 GM/DL 6.2-8.1 Albumin 3.8 GM/DL 3.2-5.2 Globulin 2.9 GM/DL 2-4 Albumin/Globulin Ratio 1.3 1-3 Bilirubin Total 1.2 mg/dL 0.4-1.5 111 Alkaline Phosphatase 62 U/L 39-117 Alt (SGPT) 15 U/L Low 17-63 Ast (Sgot) 22 U/L 12-42 eGFR Non- 72.6 > 60 eGFR 93.4 > 60 112 Lipid Panel - 11/02/2010 [facility] CPK (Creatine 141 U/L 0- [address] Kinase) [place] [address] [phone] 1 Because ethnic data is not always readily available, this report includes an eGFR for both -Americans and non- Americans. The National Kidney Disease Education Program (NKDEP) does not endorse the use of the MDRD equation for patients that are not between the ages of 18 and 70, are , have extremes of body size, muscle mass, or nutritional status, or are non- or non-. According to the National Kidney Foundation, irrespective of diagnosis, the stage of the disease is based on the level of kidney function: Stage Description GFR(mL/min/1.73 m(2)) 1 Kidney damage with normal or decreased GFR 90 2 Kidney damage with mild decrease in GFR 60-89 3 Moderate decrease in GFR 30-59 4 Severe decrease in GFR 15-29 5 Kidney failure <15 (or dialysis) 2 ENTERED:12/21/17 :06/07/18 SO 3 ENTERED:12/21/17 :06/07/18 SO 4 Because ethnic data is not always readily available, this report includes an eGFR for both -Americans and non- Americans. The National Kidney Disease Education Program (NKDEP) does not endorse the use of the MDRD equation for patients that are not between the ages of 18 and 70, are , have extremes of body size, muscle mass, or nutritional status, or are non- or non-. According to the National Kid[employer] Foundation, irrespective of diagnosis, the stage of the disease is based on the level of kidney function: Stage Description GFR(mL/min/1.73 m(2)) 1 Kidney damage with normal or decreased GFR 90 2 Kidney damage with mild decrease in GFR 60-89 3 Moderate decrease in GFR 30-59 4 Severe decrease in GFR 15-29 5 Kidney failure <15 (or dialysis) 5 ENTERED:12/21/17 :06/07/18 SO 6 ENTERED:12/21/17 :06/07/18 SO 7 >100 to <200 pg/mL: likely compensated congestive heart failure (CHF) 200 to 400 pg/mL: likely moderate CHF >400 pg/mL: likely moderate to severe CHF 8 Because ethnic data is not always readily available, this report includes an eGFR for both -Americans and non- Americans. The National Kidney Disease Education Program (NKDEP) does not endorse the use of the MDRD equation for patients that are not between the ages of 18 and 70, are , have extremes of body size, muscle mass, or nutritional status, or are non- or non-. According to the National Kidney Foundation, irrespective of diagnosis, the stage of the disease is based on the level of kidney function: Stage Description GFR(mL/min/1.73 m(2)) 1 Kidney damage with normal or decreased GFR 90 2 Kidney damage with mild decrease in GFR 60-89 3 Moderate decrease in GFR 30-59 4 Severe decrease in GFR 15-29 5 Kidney failure <15 (or dialysis) 9 Because ethnic data is not always readily available, this report includes an eGFR for both -Americans and non- Americans. The National Kidney Disease Education Program (NKDEP) does not endorse the use of the MDRD equation for patients that are not between the ages of 18 and 70, are , have extremes of body size, muscle mass, or nutritional status, or are non- or non-. According to the National Kidney Foundation, irrespective of diagnosis, the stage of the disease is based on the level of kidney function: Stage Description GFR(mL/min/1.73 m(2)) 1 Kidney damage with normal or decreased GFR 90 2 Kidney damage with mild decrease in GFR 60-89 3 Moderate decrease in GFR 30-59 4 Severe decrease in GFR 15-29 5 Kidney failure <15 (or dialysis) 10 Desirable: <150 Borderline High: 150-199 High: 200-499 Very High: >500 11 Desirable: <200 Borderline High: 200-239 High: >239 12 Low: <40 Desirable: 40-60 High: >60 13 Desirable: <100 Near Optimal: 100-129 Borderline High: 130-159 High: 160-189 Very High: >189 14 Because ethnic data is not always readily available, this report includes an eGFR for both -Americans and non- Americans. The National Kidney Disease Education Program (NKDEP) does not endorse the use of the MDRD equation for patients that are not between the ages of 18 and 70, are , have extremes of body size, muscle mass, or nutritional status, or are non- or non-. According to the National Kidney Foundation, irrespective of diagnosis, the stage of the disease is based on the level of kidney function: Stage Description GFR(mL/min/1.73 m(2)) 1 Kidney damage with normal or decreased GFR 90 2 Kidney damage with mild decrease in GFR 60-89 3 Moderate decrease in GFR 30-59 4 Severe decrease in GFR 15-29 5 Kidney failure <15 (or dialysis) 15 ENTERED:12/21/17 :06/07/18 SO 16 ENTERED:12/21/17 :06/07/18 SO 17 Because ethnic data is not always readily available, this report includes an eGFR for both -Americans and non- Americans. The National Kidney Disease Education Program (NKDEP) does not endorse the use of the MDRD equation for patients that are not between the ages of 18 and 70, are , have extremes of body size, muscle mass, or nutritional status, or are non- or non-. According to the National Kidney Foundation, irrespective of diagnosis, the stage of the disease is based on the level of kidney function: Stage Description GFR(mL/min/1.73 m(2)) 1 Kidney damage with normal or decreased GFR 90 2 Kidney damage with mild decrease in GFR 60-89 3 Moderate decrease in GFR 30-59 4 Severe decrease in GFR 15-29 5 Kidney failure <15 (or dialysis) 18 ENTERED:12/21/17 :06/07/18 SO 19 ENTERED:12/21/17 :06/07/18 SO 20 Because ethnic data is not always readily available, this report includes an eGFR for both -Americans and non- Americans. The National Kidney Disease Education Program (NKDEP) does not endorse the use of the MDRD equation for patients that are not between the ages of 18 and 70, are , have extremes of body size, muscle mass, or nutritional status, or are non- or non-. According to the National Kidney Foundation, irrespective of diagnosis, the stage of the disease is based on the level of kidney function: Stage Description GFR(mL/min/1.73 m(2)) 1 Kidney damage with normal or decreased GFR 90 2 Kidney damage with mild decrease in GFR 60-89 3 Moderate decrease in GFR 30-59 4 Severe decrease in GFR 15-29 5 Kidney failure <15 (or dialysis) 21 Because ethnic data is not always readily available, this report includes an eGFR for both -Americans and non- Americans. The National Kidney Disease Education Program (NKDEP) does not endorse the use of the MDRD equation for patients that are not between the ages of 18 and 70, are , have extremes of body size, muscle mass, or nutritional status, or are non- or non-. According to the National Kid[employer] Foundation, irrespective of diagnosis, the stage of the disease is based on the level of kidney function: Stage Description GFR(mL/min/1.73 m(2)) 1 Kidney damage with normal or decreased GFR 90 2 Kidney damage with mild decrease in GFR 60-89 3 Moderate decrease in GFR 30-59 4 Severe decrease in GFR 15-29 5 Kidney failure <15 (or dialysis) 22 Acute inflammation: >10.00 23 Because ethnic data is not always readily available, this report includes an eGFR for both -Americans and non- Americans. The National Kidney Disease Education Program (NKDEP) does not endorse the use of the MDRD equation for patients that are not between the ages of 18 and 70, are , have extremes of body size, muscle mass, or nutritional status, or are non- or non-. According to the National Kidney Foundation, irrespective of diagnosis, the stage of the disease is based on the level of kidney function: Stage Description GFR(mL/min/1.73 m(2)) 1 Kidney damage with normal or decreased GFR 90 2 Kidney damage with mild decrease in GFR 60-89 3 Moderate decrease in GFR 30-59 4 Severe decrease in GFR 15-29 5 Kidney failure <15 (or dialysis) 24 Please check in 2 weeks 25 Acute inflammation: >10.00 26 FASTING 27 Because ethnic data is not always readily available, this report includes an eGFR for both -Americans and non- Americans. The National Kidney Disease Education Program (NKDEP) does not endorse the use of the MDRD equation for patients that are not between the ages of 18 and 70, are , have extremes of body size, muscle mass, or nutritional status, or are non- or non-. According to the [employer], irrespective of diagnosis, the stage of the disease is based on the level of kidney function: Stage Description GFR(mL/min/1.73 m(2)) 1 Kidney damage with normal or decreased GFR 90 2 Kidney damage with mild decrease in GFR 60-89 3 Moderate decrease in GFR 30-59 4 Severe decrease in GFR 15-29 5 Kidney failure <15 (or dialysis) 28 Desirable: <150 Borderline High: 150-199 High: 200-499 Very High: >500 29 Desirable: <200 Borderline High: 200-239 High: >239 30 Low: <40 Desirable: 40-60 High: >60 31 Desirable: <100 Near Optimal: 100-129 Borderline High: 130-159 High: 160-189 Very High: >189 32 FASTING 33 FASTING 34 FASTING 35 >100 to <200 pg/mL: likely compensated congestive heart failure (CHF) 200 to 400 pg/mL: likely moderate CHF >400 pg/mL: likely moderate to severe CHF 36 FASTING 37 Because ethnic data is not always readily available, this report includes an eGFR for both -Americans and non- Americans. The National Kidney Disease Education Program (NKDEP) does not endorse the use of the MDRD equation for patients that are not between the ages of 18 and 70, are , have extremes of body size, muscle mass, or nutritional status, or are non- or non-. According to the National Kidney Foundation, irrespective of diagnosis, the stage of the disease is based on the level of kidney function: Stage Description GFR(mL/min/1.73 m(2)) 1 Kidney damage with normal or decreased GFR 90 2 Kidney damage with mild decrease in GFR 60-89 3 Moderate decrease in GFR 30-59 4 Severe decrease in GFR 15-29 5 Kidney failure <15 (or dialysis) 38 Desirable: <150 Borderline High: 150-199 High: 200-499 Very High: >500 39 Desirable: <200 Borderline High: 200-239 High: >239 40 Low: <40 Desirable: 40-60 High: >60 41 Desirable: <100 Near Optimal: 100-129 Borderline High: 130-159 High: 160-189 Very High: >189 42 FASTING 43 FASTING 44 FASTING 45 >100 to <200 pg/mL: likely compensated congestive heart failure (CHF) 200 to 400 pg/mL: likely moderate CHF >400 pg/mL: likely moderate to severe CHF 46 Please check this month 47 Acute inflammation: >10.00 48 Please check labs today and 2 days before follow up 49 Acute inflammation: >10.00 50 FASTING 51 FASTING 52 Desirable <150 Borderline high 150-199 High 200-499 Very High >500 53 Desirable <200 Borderline high 200-239 High >239 54 Low <40 Desirable: 40-60 High: >60 55 Desirable: <100 mg/dL Near Optimal: 100-129 mg/dL Borderline High: 130-159 mg/dL High: 160-189 mg/dL Very High: >189 mg/dL 56 FASTING 57 FINAL DIAGNOSIS: Specimen Source: Endobronchial lymph node FNA ([id number]) Flow cytometry immunophenotypic analysis: No evidence of an immunophenotypically abnormal cell population. Interpretative data: Lymphocytes: 42% of gated events B-cells: 14% of lymphs; kappa:lambda within normal limits T-cells/NK cells: No aberrant population detected. Markers tested: CD3, CD5, CD7, CD10, CD20, CD19, CD23, CD45, kappa surface light chains, lambda surface light chains, 7-AAD. Quality Assessment: Acceptable Viability: Acceptable Viable lymphocytes (7-AAD): 99% Specimen received within validated guidelines. A Meneses-Giemsa stained slide prepared from the flow cytometry specimen was examined for quality purposes. Electronically signed by: Wendy Hernandez MD 06/22/16 1016 Technical component performed by: [place] [address] Se[place] Helper: Peter Banks II, MD, PhD. 58 FINAL DIAGNOSIS: Specimen Source: Endobronchial lymph node FNA ([id number]) Flow cytometry immunophenotypic analysis: No evidence of an immunophenotypically abnormal cell population. Interpretative data: Lymphocytes: 42% of gated events B-cells: 14% of lymphs; kappa:lambda within normal limits T-cells/NK cells: No aberrant population detected. Markers tested: CD3, CD5, CD7, CD10, CD20, CD19, CD23, CD45, kappa surface light chains, lambda surface light chains, 7-AAD. Quality Assessment: Acceptable Viability: Acceptable Viable lymphocytes (7-AAD): 99% Specimen received within validated guidelines. A Meneses-Giemsa stained slide prepared from the flow cytometry specimen was examined for quality purposes. Electronically signed by: Wendy Hernandez MD 06/22/16 1016 Technical component performed by: [address] [address] [place] Helper: Peter Banks II, MD, PhD. 59 SEE RESULT BELOW Name: PETER MERRITT : [address]: Raiza Moore MD Acct: [id number] Unit: [id number] AGE: 80 Location: OR Re06/20/16 SEX: M Status: REG [facility] SPEC: [id number] JENNIFER: 06/20/16-[address]: Raiza Moore MD REQ: [id number] RECD: 06/20/16-1548 STATUS: SOUT _ ORDERED: FN ASP DEEP/2, LEVEL IV/2, FNA IMMEDIATE S/2, Leukemia/Lympho Flow cytometry has been performed at [place], [place]. The testing reveals: FINAL DIAGNOSIS: Specimen Source: Endobronchial lymph node FNA ([id number]) Flow cytometry immunophenotypic analysis: No evidence of an immunophenotypically abnormal cell population. Interpretative data: Lymphocytes: 42% of gated events B-cells: 14% of lymphs; kappa:lambda within normal limits T-cells/NK cells: No aberrant population detected. Markers tested: CD3, CD5, CD7, CD10, CD20, CD19, CD23, CD45, kappa surface light chains, lambda surface light chains, 7-AAD. Quality Assessment: Acceptable Viability: Acceptable Viable lymphocytes (7-AAD): 99% Specimen received within validated guidelines. A Meneses-Giemsa stained slide prepared from the flow cytometry specimen was examined for quality purposes. Electronically signed by: Wendy Hernandez MD 06/22/16 1016 Technical component performed by: [place] [address] Se[place] Helper: Peter Banks II, MD, PhD. CONTINUED ON NEXT PAGE * ML=Testing performed at Main Lab DEPARTMENT OF PATHOLOGY, [address] [place] [address] Anders Saldaña M.D. Director [facility] # [id number] RUN DATE: 06/25/16 [facility] LAB LIVE PAGE 2 Patient: PETER MERRITT [id number] (Continued) ADDENDUM (Continued) Addendum Signed (signature on file) Anders Saldaña MD 1028 FINAL DIAGNOSIS 1) Lymph node, R-4, endobronchial fine needle aspiration: -- Benign lymphoid tissue. -- No evidence of sarcoidosis. 2) Lymph node, R10, endobronchial fine needle aspiration: -- Benign lymphoid tissue. -- No evidence of sarcoidosis. COMMENT: A cell block was prepared in the evaluation of this specimen. Smears and cell block reveal similar findings. Flow cytometry is negative for an immunophenotypically abnormal cell population. Dr. Saldaña reviewed this case in intradepartmental consultation and agrees with the diagnosis. 1. LYMPH NODE - R-4 ENDOBRONCHIAL FINE NEEDLE ASPIRATION, 2. LYMPH NODE - R-10 ENDOBRONCHIAL FINE NEEDLE ASPIRATION IMMEDIATE INTERPRETATION 1) All passes adequate 2) All passes adequate CONTINUED ON NEXT PAGE * ML=Testing performed at Main Lab DEPARTMENT OF PATHOLOGY, [address] [place] [address] Anders Saldaña M.D. Director [facility] # [id number] RUN DATE: 06/25/16 [facility] LAB LIVE PAGE 3 Patient: PETER MERRITT [id number] (Continued) GROSS DESCRIPTION (Continued) GROSS DESCRIPTION 1) 15 - alcohol fixed slides(s) 6 - passes Needle rinse in formalin solution for cell block. 2) 7 - alcohol fixed slides(s) 5 - passes Needle rinse in formalin solution for cell block. Specimen sent to [facility] for Flow cytometry [place], [place] on 06/20/16 by [id number] at 1600. Signed (signature on file) Wendy Hernandez MD 1027 END OF REPORT * ML=Testing performed at Main Lab DEPARTMENT OF PATHOLOGY, [address] [place] [address] Anders Saldaña M.D. Director [facility] # [id number] 60 Comment: on arrival preop 06/20/16 61 FASTING cc pmd 62 Because ethnic data is not always readily available, this report includes an eGFR for both -Americans and non- Americans. The National Kidney Disease Education Program (NKDEP) does not endorse the use of the MDRD equation for patients that are not between the ages of 18 and 70, are , have extremes of body size, muscle mass, or nutritional status, or are non- or non-. According to the National Kidney Foundation, irrespective of diagnosis, the stage of the disease is based on the level of kidney function: Stage Description GFR(mL/min/1.73 m(2)) 1 Kidney damage with normal or decreased GFR 90 2 Kidney damage with mild decrease in GFR 60-89 3 Moderate decrease in GFR 30-59 4 Severe decrease in GFR 15-29 5 Kidney failure <15 (or dialysis) 63 Desirable <150 Borderline high 150-199 High 200-499 Very High >500 64 Desirable <200 Borderline high 200-239 High >239 65 Low <40 Desirable: 40-60 High: >60 66 Desirable: <100 mg/dL Near Optimal: 100-129 mg/dL Borderline High: 130-159 mg/dL High: 160-189 mg/dL Very High: >189 mg/dL 67 FASTING cc pmd 68 FASTING cc pmd 69 >100 to <200 pg/mL: likely compensated congestive heart failure (CHF) 200 to 400 pg/mL: likely moderate CHF >400 pg/mL: likely moderate to severe CHF 70 Desirable <150 Borderline high 150-199 High 200-499 Very High >500 71 Desirable <200 Borderline high 200-239 High >239 72 Low <40 Desirable: 40-60 High: >60 73 Desirable: <100 mg/dL Near Optimal: 100-129 mg/dL Borderline High: 130-159 mg/dL High: 160-189 mg/dL Very High: >189 mg/dL 74 Because ethnic data is not always readily available, this report includes an eGFR for both -Americans and non- Americans. The National Kidney Disease Education Program (NKDEP) does not endorse the use of the MDRD equation for patients that are not between the ages of 18 and 70, are , have extremes of body size, muscle mass, or nutritional status, or are non- or non-. According to the National Kidney Foundation, irrespective of diagnosis, the stage of the disease is based on the level of kidney function: Stage Description GFR(mL/min/1.73 m(2)) 1 Kidney damage with normal or decreased GFR 90 2 Kidney damage with mild decrease in GFR 60-89 3 Moderate decrease in GFR 30-59 4 Severe decrease in GFR 15-29 5 Kidney failure <15 (or dialysis) 75 Because ethnic data is not always readily available, this report includes an eGFR for both -Americans and non- Americans. The National Kidney Disease Education Program (NKDEP) does not endorse the use of the MDRD equation for patients that are not between the ages of 18 and 70, are , have extremes of body size, muscle mass, or nutritional status, or are non- or non-. According to the National Kidney Foundation, irrespective of diagnosis, the stage of the disease is based on the level of kidney function: Stage Description GFR(mL/min/1.73 m(2)) 1 Kidney damage with normal or decreased GFR 90 2 Kidney damage with mild decrease in GFR 60-89 3 Moderate decrease in GFR 30-59 4 Severe decrease in GFR 15-29 5 Kidney failure <15 (or dialysis) 76 FASTING 77 FASTING 78 FASTING 79 FASTING 80 Desirable <150 Borderline high 150-199 High 200-499 Very High >500 81 Desirable <200 Borderline high 200-239 High >239 82 Low <40 Desirable: 40-60 High: >60 83 Desirable: <100 mg/dL Near Optimal: 100-129 mg/dL Borderline High: 130-159 mg/dL High: 160-189 mg/dL Very High: >189 mg/dL 84 Because ethnic data is not always readily available, this report includes an eGFR for both -Americans and non- Americans. The National Kidney Disease Education Program (NKDEP) does not endorse the use of the MDRD equation for patients that are not between the ages of 18 and 70, are , have extremes of body size, muscle mass, or nutritional status, or are non- or non-. According to the National Kidney Foundation, irrespective of diagnosis, the stage of the disease is based on the level of kidney function: Stage Description GFR(mL/min/1.73 m(2)) 1 Kidney damage with normal or decreased GFR 90 2 Kidney damage with mild decrease in GFR 60-89 3 Moderate decrease in GFR 30-59 4 Severe decrease in GFR 15-29 5 Kidney failure <15 (or dialysis) 85 Because ethnic data is not always readily available, this report includes an eGFR for both -Americans and non- Americans. The National Kidney Disease Education Program (NKDEP) does not endorse the use of the MDRD equation for patients that are not between the ages of 18 and 70, are , have extremes of body size, muscle mass, or nutritional status, or are non- or non-. According to the National Kidney Foundation, irrespective of diagnosis, the stage of the disease is based on the level of kidney function: Stage Description GFR(mL/min/1.73 m(2)) 1 Kidney damage with normal or decreased GFR 90 2 Kidney damage with mild decrease in GFR 60-89 3 Moderate decrease in GFR 30-59 4 Severe decrease in GFR 15-29 5 Kidney failure <15 (or dialysis) 86 Reference Range and Interpretation: TnI (ng/mL) Interpretation Less Than 0.03 ng/mL Not supportive of diagnosis of [place] 0.03 - 0.50 ng/mL Indeterminate: suggest serial studies if clinically indicated. Greater than 0.5 ng/mL Consistent with diagnosis of [place] 87 SEE RESULT BELOW Name: PETER MERRITT : [address]: Tea Vickers MD Acct: [id number] Unit: [id number] AGE: 79 Location: ED Re05/07/15 SEX: M Status: DEP ER SPEC: [id number] JENNIFER: 05/07/[address]: Flores Kaur MD REQ: [id number] RECD: 05/07/15 STATUS: LV LOCKHART DR: Alexx Kerr MD _ SOURCE: BLOOD,VENO SPDESC: ORDERED: Blood Cult Procedure Result Reported Site Aerobic Culture Bottle Final 05/12/15- 2027 ML No Growth Day 5 Anaerobic Culture Bottle Final 05/12/15- 2027 ML No Growth Day 5 * ML - MAIN LAB ([facility]) . END OF REPORT * ML=Testing performed at Main Lab DEPARTMENT OF PATHOLOGY, [address] [place] [address] Anders Saldaña M.D. Director [facility] # [id number] 88 SEE RESULT BELOW Name: PETER MERRITT Kenan : [address]: Tea Vickers MD Acct: [id number] Unit: [id number] AGE: 79 Location: ED Re05/07/15 SEX: M Status: DEP ER SPEC: [id number] JENNIFER: 05/07/15-[address]: Flores Kaur MD REQ: [id number] RECD: 05/07/15 STATUS: LV LOCKHART DR: Alexx Kerr MD _ SOURCE: URINE SPDESC: ORDERED: Urine Culture COMMENTS: Verbal to [id number]) by [id number] at 1000 on 05/10/15. Results read back accurately. Procedure Result Reported Site Urine Culture Final 05/19/15- 1356 ML Organism 1 ESBL KLEBSIELLA PNEUMONIAE [place] Count >100,000 (Many) CFU/ML Organism 2 NORMAL BHARAT [place] Count 1-10,000 (Few) CFU/ML This isolate is an Extended Spectrum Beta-Lactamase Industrial Accountant (ESBL) strain, and as such is considered resistant for all penicillins, cephalosporins and aztreonam. 1. ESBL KLEBSIELLA PNEUMONIAE M.I.C. RX --------- ------ Ampicillin >=32 R Cefazolin >=64 R Cefepime R Ceftriaxone >=64 R Ciprofloxacin <=0.25 S Gentamicin >=16 R Levofloxacin 1 S Meropenem <=0.25 S Nitrofurantoin 32 S Tetracycline <=1 S Pipercillin/Tazobactam <=4 S Trimethoprim/Sulfamethoxazole >=320 R CONTINUED ON NEXT PAGE * ML=Testing performed at Main Lab DEPARTMENT OF PATHOLOGY, [address] [place] [address] Anders Saldaña M.D. Director [facility] # [id number] Patient: PETER MERRITT [id number] (Continued) Specimen: [id number] Collected: 05/07/15 Received: 05/07/15-2015 (Continued) Procedure Result Reported Site Urine Culture Final (continued) 05/19/15- 1355 1. ESBL KLEBSIELLA PNEUMONIAE (continued) M.I.C. RX --------- ------ Amoxicillin/Clavulanic Acid 8 S Aztreonam R Contact the Microbiology Department for any additional antibiotic reporting. * ML - MAIN LAB ([facility]) . END OF REPORT * ML=Testing performed at Main Lab DEPARTMENT OF PATHOLOGY, [address] [place] [address] Anders Saldaña M.D. Director [facility] # [id number] 89 Because ethnic data is not always readily available, this report includes an eGFR for both -Americans and non- Americans. The National Kidney Disease Education Program (NKDEP) does not endorse the use of the MDRD equation for patients that are not between the ages of 18 and 70, are , have extremes of body size, muscle mass, or nutritional status, or are non- or non-. According to the National Kidney Foundation, irrespective of diagnosis, the stage of the disease is based on the level of kidney function: Stage Description GFR(mL/min/1.73 m(2)) 1 Kidney damage with normal or decreased GFR 90 2 Kidney damage with mild decrease in GFR 60-89 3 Moderate decrease in GFR 30-59 4 Severe decrease in GFR 15-29 5 Kidney failure <15 (or dialysis) 90 Because ethnic data is not always readily available, this report includes an eGFR for both -Americans and non- Americans. The National Kidney Disease Education Program (NKDEP) does not endorse the use of the MDRD equation for patients that are not between the ages of 18 and 70, are , have extremes of body size, muscle mass, or nutritional status, or are non- or non-. According to the National Kidney Foundation, irrespective of diagnosis, the stage of the disease is based on the level of kidney function: Stage Description GFR(mL/min/1.73 m(2)) 1 Kidney damage with normal or decreased GFR 90 2 Kidney damage with mild decrease in GFR 60-89 3 Moderate decrease in GFR 30-59 4 Severe decrease in GFR 15-29 5 Kidney failure <15 (or dialysis) 91 PT IS FASTING 92 PT IS FASTING 93 Potassium reference range changed effective 04/04/14 94 Because ethnic data is not always readily available, this report includes an eGFR for both -Americans and non- Americans. The National Kidney Disease Education Program (NKDEP) does not endorse the use of the MDRD equation for patients that are not between the ages of 18 and 70, are , have extremes of body size, muscle mass, or nutritional status, or are non- or non-. According to the National Kidney Foundation, irrespective of diagnosis, the stage of the disease is based on the level of kidney function: Stage Description GFR(mL/min/1.73 m(2)) 1 Kidney damage with normal or decreased GFR 90 2 Kidney damage with mild decrease in GFR 60-89 3 Moderate decrease in GFR 30-59 4 Severe decrease in GFR 15-29 5 Kidney failure <15 (or dialysis) 95 Desirable <150 Borderline high 150-199 High 200-499 Very High >500 96 Desirable <200 Borderline high 200-239 High >239 97 Low <40 Desirable: 40-60 High: >60 98 Desirable <100 Near Optimal 100-129 Borderline high 130-159 High 160-189 Very High >189 99 PT IS FASTING 100 Because ethnic data is not always readily available, this report includes an eGFR for both -Americans and non- Americans. The National Kidney Disease Education Program (NKDEP) does not endorse the use of the MDRD equation for patients that are not between the ages of 18 and 70, are , have extremes of body size, muscle mass, or nutritional status, or are non- or non-. According to the National Kidney Foundation, irrespective of diagnosis, the stage of the disease is based on the level of kidney function: Stage Description GFR(mL/min/1.73 m(2)) 1 Kidney damage with normal or decreased GFR 90 2 Kidney damage with mild decrease in GFR 60-89 3 Moderate decrease in GFR 30-59 4 Severe decrease in GFR 15-29 5 Kidney failure <15 (or dialysis) 101 Please note the change in the INR reference range effective 13. 102 Because ethnic data is not always readily available, this report includes an eGFR for both -Americans and non- Americans. The National Kidney Disease Education Program (NKDEP) does not endorse the use of the MDRD equation for patients that are not between the ages of 18 and 70, are , have extremes of body size, muscle mass, or nutritional status, or are non- or non-. According to the National Kidney Foundation, irrespective of diagnosis, the stage of the disease is based on the level of kidney function: Stage Description GFR(mL/min/1.73 m(2)) 1 Kidney damage with normal or decreased GFR 90 2 Kidney damage with mild decrease in GFR 60-89 3 Moderate decrease in GFR 30-59 4 Severe decrease in GFR 15-29 5 Kidney failure <15 (or dialysis) 103 Because ethnic data is not always readily available, this report includes an eGFR for both -Americans and non- Americans. The National Kidney Disease Education Program (NKDEP) does not endorse the use of the MDRD equation for patients that are not between the ages of 18 and 70, are , have extremes of body size, muscle mass, or nutritional status, or are non- or non-. According to the National Kidney Foundation, irrespective of diagnosis, the stage of the disease is based on the level of kidney function: Stage Description GFR(mL/min/1.73 m(2)) 1 Kidney damage with normal or decreased GFR 90 2 Kidney damage with mild decrease in GFR 60-89 3 Moderate decrease in GFR 30-59 4 Severe decrease in GFR 15-29 5 Kidney failure <15 (or dialysis) 104 A metabolite of Naproxen, O-desmethylnaproxen, has been shown to interfere with the Jendrassik-Dave method for measuring total bilirubin. Samples from patients who have taken Naproxen have shown spurious elevation in total bilirubin levels. 105 Because ethnic data is not always readily available, this report includes an eGFR for both -Americans and non- Americans. The National Kidney Disease Education Program (NKDEP) does not endorse the use of the MDRD equation for patients that are not between the ages of 18 and 70, are , have extremes of body size, muscle mass, or nutritional status, or are non- or non-. According to the National Kidney Foundation, irrespective of diagnosis, the stage of the disease is based on the level of kidney function: Stage Description GFR(mL/min/1.73 m(2)) 1 Kidney damage with normal or decreased GFR 90 2 Kidney damage with mild decrease in GFR 60-89 3 Moderate decrease in GFR 30-59 4 Severe decrease in GFR 15-29 5 Kidney failure <15 (or dialysis) 106 RUN DATE: 04/20/12 [facility] LAB LIVE PAGE 1 RUN TIME: [id number] [address] [place], [place] [address] Specimen Inquiry Name: PETER MERRITT : [address]: Inga ESCOBEDO,Eleuterio Avila Acct: [id number] Unit: [id number] AGE: 76 Location: [facility] Re04/15/12 SEX: M Status: REG REF SPEC: [id number] JENNIFER: 04/15/[address] [facility] [address]: Eleuterio Xiong MD REQ: [id number] RECD: 04/15/12 STATUS: LV LOCKHART DR: Usha ESCOBEDO,Terry _ SOURCE: BLOOD,VENO SPDESC: ORDERED: Blood Cult Procedure Result Verified Site Aerobic Culture Bottle Final 04/20/12- 1140 ML No Growth Day 5 Anaerobic Culture Bottle Final 04/20/12- 1140 ML No Growth Day 5 END OF REPORT * ML=Testing performed at Main Lab DEPARTMENT OF PATHOLOGY, [address] [place] [address] Anders Saldaña M.D. Director [facility] Permit #[id number] CHOLESTEROL INTERPRETATION: Desirable: Less than 200 MG/DL Borderline-High Risk: 200-239 MG/DL High-Risk: 240 MG/DL and over 108 HDL INTERPRETATION: Undesirable: High Risk: Less than 40 MG/DL Desirable: Low Risk: Greater than 60 MG/DL 109 LDL INTERPRETATION: Low Risk Optimal Level: LDL Less than 100 MG/DL Near or Above Optimal: LDL 100-129 MG/DL Borderline High Risk: LDL 130-159 MG/DL High Risk: LDL 160-189 MG/DL Very High Risk: LDL Greater than 189 MG/DL 110 Anion gap measurement may be of limited value in the presence of any alkalosis, especially in a combined acid base disorder. . 111 A metabolite of Naproxen, O-desmethylnaproxen, has been shown to interfere with the Jendrassik-Dave method for measuring total bilirubin. Samples from patients who have taken Naproxen have shown spurious elevation in total bilirubin levels. 112 Because ethnic data is not always readily available, this report includes an eGFR for both -Americans and non- Americans. The National Kidney Disease Education Program (NKDEP) does not endorse the use of the MDRD equation for patients that are not between the ages of 18 and 70, are , have extremes of body size, muscle mass, or nutritional status, or are non- or non-. According to the National Kidney Foundation, irrespective of diagnosis, the stage of the disease is based on the level of kidney function: Stage Description GFR(mL/min/1.73 m(2)) 1 Kidney damage with normal or decreased GFR 90 2 Kidney damage with mild decrease in GFR 60-89 3 Moderate decrease in GFR 30-59 4 Severe decrease in GFR 15-29 5 Kidney failure <15 (or dialysis) Procedures Date Code Description Status 05/13/2018 87905 Icd Eval Sing,Dual,Multi Lead Remote Recpt Transm Tech Completed Rev Tech S 05/13/2018 69189 Icd Eval Sing,Dual,Multi Lead Remote Recpt Transm Tech Completed Rev Tech S 05/13/2018 38149 Icd Check Remote Up To 90 Days Single,Dual,Multiple Completed Lead 05/13/2018 53194 Icd Check Remote Up To 90 Days Single,Dual,Multiple Completed Lead 05/08/2018 70997 EKG Tracing & Interpretation Completed 04/06/2018 23474 Holter Monitor Review (24 hr)dr review & interp only Completed 04/03/2018 08842 EKG Tracing & Interpretation Completed 04/02/2018 17155 ECHO Stress Test Incl Perf Contiuous ekg Monitoring Completed W/Phys Superv 04/02/2018 88513 ECG Monitor/Recording W/Visual Superimposition Scanning Completed 04/02/2018 54296 ECG Monitor/Recording W/Visual Superimposition Scanning Completed 02/28/2018 45384 EKG Tracing & Interpretation Completed 02/11/2018 26640 ECHO Transthoracic, Real-Time 2D With Doppler And Color Completed Flow 02/11/2018 42970 ECHO Transthoracic, Real-Time 2D With Doppler And Color Completed Flow 01/21/2018 78586 Icd eval w/iterative adjment single lead Icd Completed 01/21/2018 97287 Icd eval w/iterative adjment single lead Icd Completed 11/07/2017 16999 Diffusing Capacity Completed 11/07/2017 12727 Plethysmography Determination Lung Volumes & Per Airway Completed Resist 11/07/2017 00351 Pulmonary Stress Testing, Inc Measurement Heart Rate, Completed Oximetry 11/07/2017 86499 Pulmonary Function><Bronchodil Completed 10/02/2017 26140 ECHO Stress Test Incl Perf Contiuous ekg Monitoring Completed W/Phys Superv 09/25/2017 77913 ECHO Transthoracic, Real-Time 2D With Doppler And Color Completed Flow 09/25/2017 51754 ECHO Transthoracic, Real-Time 2D With Doppler And Color Completed Flow 08/30/2017 32855 Holter Monitor Review (24 hr)dr review & interp only Completed 08/28/2017 37078 ECG Monitor/Recording W/Visual Superimposition Scanning Completed 08/08/2017 12085 EKG Tracing & Interpretation Completed 07/18/2017 54514 Icd Eval W/Iterative Adjustmnt Single Lead Icd Completed 07/18/2017 43330 Icd Eval W/Iterative Adjustmnt Single Lead Icd Completed 06/10/2017 20654 EKG Tracing & Interpretation Completed 04/08/2017 52744 EKG Tracing & Interpretation Completed 03/26/2017 88504 Icd Eval W/Iterative Adjustmnt Single Lead Icd Completed 03/22/2017 17285 Holter Monitor Review (24 hr)dr review & interp only Completed 03/20/2017 12407 ECG Monitor/Recording W/Visual Superimposition Scanning Completed 03/20/2017 20885 ECG Monitor/Recording W/Visual Superimposition Scanning Completed 03/14/2017 60624 ECHO Stress Test Incl Perf Contiuous ekg Monitoring Completed W/Phys Superv 03/11/2017 57304 ECHO Transthoracic, Real-Time 2D With Doppler And Color Completed Flow 03/11/2017 06415 ECHO Transthoracic, Real-Time 2D With Doppler And Color Completed Flow 02/14/2017 68207 EKG Tracing & Interpretation Completed 01/28/2017 08378 Cath PLMT&NJX L Ventriculog Img S&I Completed 12/31/2016 56192 EKG Tracing & Interpretation Completed 12/19/2016 77816 ECHO Stress Test Incl Perf Contiuous ekg Monitoring Completed W/Phys Superv 12/07/2016 73052 Color Flow Doppler/Interp & Reprt Completed 12/07/2016 22247 Pulse Wave/Continuous-Interp.RPT Completed 12/07/2016 94422 Echocardiography, Transesophageal, Real Time W/Image 2D Completed W/W/O M-M 11/26/2016 20778133 Colonoscopy Completed 11/25/2016 20818506 Colonoscopy Completed 11/14/2016 85930 ECHO Transthoracic, Real-Time 2D With Doppler And Color Completed Flow 11/08/2016 04043 Icd eval w/iterative adjment single lead Icd Completed 10/30/2016 28619 Diffusing Capacity Completed 10/30/2016 26112 Spirometry Incl Graphic Record Completed 10/24/2016 23971 Pulmonary Stress Test Simple Completed 10/23/2016 37392 EKG Tracing & Interpretation Completed 09/03/2016 55949 Icd eval w/iterative adjment single lead Icd Completed 08/06/2016 81489 Icd eval w/iterative adjment single lead Icd Completed 07/12/2016 05652 EKG Tracing & Interpretation Completed 07/09/2016 47076 ECHO Transthoracic, Real-Time 2D With Doppler And Color Completed Flow 06/20/2016 39208 With Endobronchial Ultrasound Guided Completed 06/05/2016 07312 EKG Tracing & Interpretation Completed 05/15/2016 71977 Icd Eval W/Iterative Adjustmnt Single Lead Icd Completed 01/23/2016 64475 EKG Tracing & Interpretation Completed 01/16/2016 90762 Icd Eval W/Iterative Adjustmnt Single Lead Icd Completed 11/15/2015 53358 Icd eval w/iterative adjment single lead Icd Completed 09/20/2015 04959 Interrogation Device Eval In Person W/DR Completed Analysis,Single,Dual,Mul 09/20/2015 90751 EKG Tracing & Interpretation Completed 08/09/2015 36408 EKG Tracing & Interpretation Completed 07/26/2015 06563 Interrogation Device Eval In Person W/DR Completed Analysis,Single,Dual,Mul 07/22/2015 66921 Color Flow Doppler/Interp & Reprt Completed 07/22/2015 41149 Cardioversion Completed 07/22/2015 10626 Pulse Wave/Continuous-Interp.RPT Completed 07/22/2015 29812 Echocardiography, Transesophageal, Real Time W/Image 2D Completed W/W/O M-M 07/22/2015 55606 EKG, Interpretation Only Completed 07/20/2015 51376 EKG Tracing & Interpretation Completed 06/21/2015 06003 EKG Tracing & Interpretation Completed 06/16/2015 70024 EKG, Interpretation Only Completed 06/16/2015 74527 Color Flow Doppler/Interp & Reprt Completed 06/16/2015 42410 Pulse Wave/Continuous-Interp.RPT Completed 06/16/2015 34728 EKG, Interpretation Only Completed 06/16/2015 28997 Echocardiography, Transesophageal, Real Time W/Image 2D Completed W/W/O M-M 06/15/2015 47943 ECHO Transthorasic Realtime 2D W Doppler & Color Flow Completed Hosp 06/14/2015 98787 Icd Check Single,Dual Or Multiple In Person W/DR Incl Completed Heart Rhyth 06/14/2015 52489 EKG Tracing & Interpretation Completed 04/18/2015 76668 Icd Check Single,Dual Or Multiple In Person W/DR Incl Completed Heart Rhyth 01/26/2015 70162 ECHO Transthoracic, Real-Time 2D With Doppler And Color Completed Flow 01/26/2015 52901 Icd Check Single,Dual Or Multiple In Person W/DR Incl Completed Heart Rhyth 01/11/2015 65073 EKG Tracing & Interpretation Completed 10/21/2014 14277 ECHO Stress Test Incl Perf Contiuous ekg Monitoring Completed W/Phys Superv 09/10/2014 75310 Icd Check Single,Dual Or Multiple In Person W/DR Incl Completed Heart Rhyth 08/06/2014 98797 ECHO Transthoracic, Real-Time 2D With Doppler And Color Completed Flow 07/26/2014 46967 EKG Tracing & Interpretation Completed 05/31/2014 36444 Diffusing Capacity Completed 05/31/2014 45304 Plethysmography Determination Lung Volumes & Per Airway Completed Resist 05/31/2014 84129 Pulmonary Function><Bronchodil Completed 04/09/2014 57654 EKG Tracing & Interpretation Completed 03/19/2014 25451 Icd Check Single,Dual Or Multiple In Person W/DR Incl Completed Heart Rhyth 01/25/2014 31502 Rad Exam; Hip Unilat Comp Completed 01/25/2014 92295 Rad Exam; Pelvis Completed 01/08/2014 26473 EKG, Interpretation Only Completed 01/08/2014 19692 EKG, Interpretation Only Completed 09/08/2013 91786 ECHO Stress Test Incl Perf Contiuous ekg Monitoring Completed W/Phys Superv 08/05/2013 04673 Rad Exam; Fingers Completed 08/05/2013 20265 Inject Tendon Sheath Or Ligament Aponeurosis Eg Plantar Completed Fascia 07/30/2013 11199 EKG Tracing & Interpretation Completed 07/22/2013 83865 Rad Exam; Fingers Completed 07/07/2013 17946 Closed TX Phalanx finger/thumb shaft w/o manipulation Completed 06/04/2013 84245 Stress Test Supervsn W/Out I/R Completed 06/04/2013 18154 Treadmill Interp/Report Only Completed 05/13/2013 45684 ECHO Transthorasic Realtime 2D W Doppler & Color Flow Completed Hosp 05/09/2013 64654 Mobile Cardiovascular Telemetry Over 24 HR Up To 30 Completed Days 04/28/2013 53510 Left Heart Cath. Incl S/I Coronaries, Angio S/I V Gram Completed If Done 04/28/2013 66441 Cath PLMT&NJX L Ventriculog Img S&I Completed 04/28/2013 09589 Left Health Catheterization W/Inj For Left Completed Ventriculography,S&I 04/22/2013 69877 ECHO Stress Test Incl Perf Contiuous ekg Monitoring Completed W/Phys Superv 04/22/2013 14817 ECHO Stress Test Incl Perf Contiuous ekg Monitoring Completed W/Phys Superv 04/17/2013 37412 EKG Tracing & Interpretation Completed 07/02/2012 28890 EKG Tracing & Interpretation Completed 09/25/2011 88718 ECHO Transthoracic, Real-Time 2D With Doppler And Color Completed Flow 05/02/2011 65670 EKG Tracing & Interpretation Completed 11/01/2010 90865 Color Flow Doppler/Interp & Reprt Completed 11/01/2010 79016 Pulse Wave/Continuous-Interp.RPT Completed 11/01/2010 02972 ECHO Transthorasic Realtime 2D W Doppler & Color Flow Completed Hosp 08/28/2010 58795 EKG Tracing & Interpretation Completed 08/25/2009 67794 EKG Tracing & Interpretation Completed 02/16/2009 42217 ECHO Stress Test Incl Perf Contiuous ekg Monitoring Completed W/Phys Superv 02/16/2009 68591 ECHO Stress Test Incl Perf Contiuous ekg Monitoring Completed W/Phys Superv 11/04/2008 13729 EKG Tracing & Interpretation Completed 10/27/2008 42330 ECHO Transthoracic, Real-Time 2D With Doppler And Color Completed Flow 10/09/2007 85073 EKG Tracing & Interpretation Completed 10/02/2006 48927 EKG Tracing & Interpretation Completed 10/02/2006 26803 EKG Tracing & Interpretation Completed 05/15/2006 44771 Color Doppler Completed 05/15/2006 03097 Pulse Doppler & Continuous Wave Completed 05/15/2006 58400 Pulse Doppler & Continuous Wave Completed 05/15/2006 23543 Echocardiogram Completed 04/03/2006 31201 EKG Tracing & Interpretation Completed 09/06/2005 75038 EKG Tracing & Interpretation Completed 06/27/2005 62727 Echocardiogram Completed 06/27/2005 30794 Color Doppler Completed 06/27/2005 81141 Pulse Doppler & Continuous Wave Completed 06/07/2005 10073 EKG Tracing & Interpretation Completed 02/07/2005 24851 ECHO/Stress Completed 02/07/2005 21607 Stress Test Completed 01/25/2005 08072 Color Doppler Completed 01/25/2005 91371 Pulse Doppler & Continuous Wave Completed 01/25/2005 62678 Echocardiogram Completed 01/25/2005 68198 EKG Tracing & Interpretation Completed 12/24/2002 35228 Color Doppler Completed 12/24/2002 81235 Pulse Doppler & Continuous Wave Completed 12/24/2002 82779 Echocardiogram Completed 12/24/2002 28078 EKG Tracing & Interpretation Completed Encounters Type Date Location Provider Dx Diagnosis Office Visit 05/15/2018 Pulmonology And Rene Escobar.4 Other disorders 11:30a Sleep Services Of of lung [facility] R09.02 Hypoxemia Office Visit 05/08/2018 8:20a [facility] Alexx Dowell I47.2 Ventricular Tamiko Clinton tachycardia I10 Essential (primary) hypertension I48.0 Paroxysmal atrial fibrillation I34.2 Nonrheumatic mitral (valve) stenosis R06.00 Dyspnea, unspecified Office Visit 03/27/2018 8:40a Rheumatology Camilo Felder5.3 Polymyalgia Services Of Remi Osorio M.D. rheumatica R79.82 Elevated C-reactive protein (CRP) Z79.52 MCC (current) use of systemic steroids E87.5 Hyperkalemia Office Visit 02/28/2018 3:30p [facility] Denice Dowd, I34.2 Nonrheumatic Of [facility] BUSINESS SUPPORT ASSOCIATE mitral (valve) stenosis I47.2 Ventricular tachycardia J98.4 Other disorders of lung Office Visit 12/16/2017 8:40a Rheumatology Camilo Felder5.3 Polymyalgia Services Of Remi Osorio M.D. 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 rheumatica Z79.52 lobsterman (current) use of systemic steroids R79.82 Elevated C-reactive protein (CRP) J98.4 Other disorders of lung Z95.2 Presence of prosthetic heart valve Office Visit 08/12/2017 4:00p Rheumatology Camilo M35.3 Polymyalgia Services Of Remi Osroio M.D. 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 rheumatica Z79.52 lobsterman (current) use of systemic steroids S76.301A Unsp inj msl/fasc/tnd post grp at [facility], right thigh, init S76.111A Strain of right quadriceps muscle, fascia and tendon, init Office Visit 06/10/2017 8:30a [facility] Emily Lora, I47.2 Ventricular PA tachycardia Z95.810 Presence of automatic (implantable) cardiac defibrillator I42.9 Cardiomyopathy, unspecified Office Visit 06/06/2017 Orthopedic Emeterio Pearce S76.301A Unsp inj 9:45a Services Of MD Yasemin msl/fasc/tnd post C.[employer] grp at [facility], right thigh, init S76.302A Unsp inj msl/fasc/tnd post grp at thi [facility], left thigh, init S76.101A Unsp injury of right quadriceps musc/fasc/tend, init S76.102A Unsp injury of left quadriceps musc/fasc/tend, init S76.311A Strain msl/fasc/tnd post grp at thi [facility], right thigh, init S76.312A Strain of msl/fasc/tnd post grp at thi [facility], left thigh, init S76.111A Strain of right quadriceps muscle, fascia and tendon, init S76.112A Strain of left quadriceps muscle, fascia and tendon, init Office Visit 05/14/2017 9:15a Pulmonology And Raiza J98.4 Other disorders Sleep Services Of MD Teresa of lung [employer] R09.02 Hypoxemia Office Visit 04/08/2017 9:00a [facility] Emily Lora, I47.2 Ventricular PA tachycardia Z95.810 Presence of automatic (implantable) cardiac defibrillator I42.9 Cardiomyopathy, unspecified Z95.2 Presence of prosthetic heart valve R06.02 Shortness of breath Office Visit 03/12/2017 9:15a Pulmonology And Raiza J98.4 Other disorders Sleep Services Of MD Teresa of lung [employer] R09.02 Hypoxemia Office Visit 02/14/2017 9:00a [facility] Alexx Dowell I35.0 Nonrheumatic Tamiko Clinton aortic (valve) stenosis R06.02 Shortness of breath R09.02 Hypoxemia I42.9 Cardiomyopathy, unspecified D86.0 Sarcoidosis of lung I47.2 Ventricular tachycardia I48.0 Paroxysmal atrial fibrillation 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, first degree R94.31 Abnormal electrocardiogram [ECG] [EKG] Z95.810 Presence of automatic (implantable) cardiac defibrillator Office Visit 01/07/2017 9:45a Pulmonology And Raiza J98.4 Other disorders Sleep Services Of MD Teresa of lung Erecting [employer] R06.02 Shortness of breath R09.02 Hypoxemia Office Visit 12/31/2016 9:00a [facility] ROBBIE Enamorado R60.0 Localized edema I35.0 Nonrheumatic aortic (valve) stenosis R06.00 Dyspnea, unspecified R09.02 Hypoxemia Z95.810 Presence of automatic (implantable) cardiac defibrillator Office Visit 12/19/2016 3:00p [facility] Alexx Dowell I35.0 Nonrheumatic Sari Clinton. 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, unspecified Office Visit 10/24/2016 11:30a Pulmonology And Raiza R06.02 Shortness of Sleep Services Of MD Teresa [facility] Erecting Engineer R09.02 Hypoxemia J98.4 Other disorders of lung Office Visit 10/23/2016 8:20a [facility] Alexx Dowell J98.4 Other disorders Tamiko Clinton of lung I47.2 Ventricular tachycardia R06.00 Dyspnea, unspecified I35.0 Nonrheumatic aortic (valve) stenosis I48.0 Paroxysmal atrial fibrillation Office Visit 09/11/2016 8:45a Pulmonology And Raiza J98.4 Other disorders Sleep Services Of MD Teresa of lung Erecting Engineer 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, unspecified I49.8 Other specified cardiac arrhythmias Office Visit 08/29/2016 11:30a [facility] Emily Lora, Z95.810 Presence of Cardiology SD automatic (implantable) cardiac defibrillator I47.2 Ventricular tachycardia R06.00 Dyspnea, unspecified 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, unspecified I35.0 Nonrheumatic aortic (valve) stenosis Office Visit 07/31/2016 8:15a Pulmonology Jimena Melendezanya J98.4 Other disorders Sleep Services Of MD Teresa of lung Erecting Engineer 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 Yoselin Trung J18.9 Pneumonia, 10:47a Assoc,pc Amanda, BUSINESS SUPPORT ASSOCIATE unspecified Hospitalists organism I48.0 Paroxysmal atrial fibrillation R06.09 Other forms of dyspnea I10 Essential (primary) hypertension Office Visit 06/17/2016 [facility] Yoselin Trung J18.9 Pneumonia, 10:47a Assoc,pc Amanda, BUSINESS SUPPORT ASSOCIATE unspecified Hospitalists organism I48.0 Paroxysmal atrial fibrillation R06.09 Other forms of dyspnea I10 Essential (primary) hypertension Office Visit 06/16/2016 [facility] Yoselin Trung J18.9 Pneumonia, 10:46a Assoc,pc Amanda, BUSINESS SUPPORT ASSOCIATE unspecified Hospitalists organism I48.0 Paroxysmal atrial fibrillation R06.09 Other forms of dyspnea I10 Essential (primary) hypertension Office Visit 06/15/2016 11:26a Pulmonology And Sleep Raiza Teresa, R09.02 Hypoxemia Services Of [facility] R91.8 Other nonspecific abnormal finding of lung field Office Visit 06/15/2016 [facility] Yoselinjacek Nino J18.9 Pneumonia, 10:46a Assoc,pc Amanda, BUSINESS SUPPORT ASSOCIATE unspecified Hospitalists organism I48.0 Paroxysmal atrial fibrillation R06.09 Other forms of dyspnea I10 Essential (primary) [facility], Visit 10:45a Assoc,pc ROBBIE Viveros unspecified Hospitalists organism I48.0 Paroxysmal atrial fibrillation R06.09 Other forms of dyspnea I10 Essential (primary) hypertension Office Visit 06/14/2016 10:52a [facility] Eleuterio Avila R06.00 Dyspnea, For Jan Xoing M.D. unspecified Diseases R05 Cough R53.83 Other fatigue R91.8 Other nonspecific abnormal finding of lung field Office Visit 06/13/2016 10:45a [facility] Manisha Walker J18.9 Pneumonia, Assoc,pc N.P. unspecified Hospitalists organism I48.0 Paroxysmal atrial fibrillation R06.09 Other forms of dyspnea I10 Essential (primary) hypertension [facility] J[facility].1 Lobar pneumonia, 1:19p Assoc,kennedy Patel, BUSINESS SUPPORT ASSOCIATE unspecified Hospitalists organism D86.9 Sarcoidosis, unspecified R79.1 Abnormal coagulation profile I10 Essential (primary) hypertension Office Visit 06/07/2016 [facility] Octavio J18.1 Lobar pneumonia, 1:18p Assoc,kennedy Stroud, N.P. unspecified Hospitalists organism D86.9 Sarcoidosis, unspecified R79.1 Abnormal coagulation profile I10 Essential (primary) hypertension Office Visit 06/05/2016 11:30a [place] Emily Lora, Z95.810 Presence of Cardiology Of [place] automatic Erecting Engineer (implantable) cardiac defibrillator I10 Essential (primary) hypertension J18.9 Pneumonia, unspecified organism D64.9 Anemia, unspecified R06.02 Shortness of breath Office Visit 02/21/2016 11:00a [facility] Emily Lora, I10 Essential (primary) Of Erecting Engineer PA hypertension Z95.810 Presence of automatic (implantable) cardiac defibrillator Office Visit 01/23/2016 8:40a [facility] Alexx FYessy I47.2 Ventricular Of Erecting Engineer Sari Clinton. 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 hypertension I48.0 Paroxysmal atrial fibrillation I47.2 Ventricular tachycardia Office Visit 06/21/2015 2:00p [facility] Alexx FYessy I48.91 Unspecified atrial Cardiology Shruthi ClintonD. fibrillation I10 Essential (primary) hypertension I47.2 Ventricular tachycardia Z95.810 Presence of automatic (implantable) cardiac defibrillator [facility] I[facility].91 Unspecified 1:04p kennedy Paniagua M.D. atrial Hospitalists fibrillation A49.9 Bacterial infection, unspecified A41.9 Sepsis, unspecified organism I10 Essential (primary) hypertension Office Visit 06/18/2015 12:06p [facility] Kristian S. 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 Malissa Forbes, I48.91 Unspecified 1:04p kennedy Paniagua M.D. atrial Hospitalists fibrillation A49.9 Bacterial infection, unspecified A41.9 Sepsis, unspecified organism I10 Essential (primary) hypertension Office Visit 06/17/2015 12:05p [facility] Kristian S. I47.2 Ventricular Of Erecting Engineer Cody, DO tachycardia FACC I48.91 Unspecified atrial fibrillation I25.10 Athscl heart disease of [place] coronary artery w/o ang pctrs Office Visit 06/17/2015 [facility] Malissa Forbes, I48.91 Unspecified 1:03p kennedy Paniagua M.D. atrial Hospitalists fibrillation A49.9 Bacterial infection, unspecified A41.9 Sepsis, unspecified organism I10 Essential (primary) hypertension Office Visit 06/16/2015 [facility] Malissa Forbes, I48.91 Unspecified 1:03p kennedy Paniagua M.D. atrial Hospitalists fibrillation A49.9 Bacterial infection, unspecified A41.9 Sepsis, unspecified organism I10 Essential (primary) hypertension Office Visit 06/15/2015 12:36p [facility] Prachi Bella, I47.2 Ventricular Of Erecting Engineer M.D. tachycardia I48.91 Unspecified atrial fibrillation A41.51 Sepsis due to Escherichia coli [E. coli] I25.10 Athscl heart disease of [place] coronary artery w/o ang pctrs Office Visit 06/15/2015 [facility] Jabier I48.91 Unspecified atrial 1:02p Assockennedy MD fibrillation Hospitalists A49.9 Bacterial infection, unspecified A41.9 Sepsis, unspecified organism I10 Essential (primary) hypertension Office Visit 06/14/2015 [facility] I48.91 Unspecified 1:01p Assoc,kennedy Stroud N.P. 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 Diamond S. N30.01 Acute cystitis Assoc,kennedy Tavarez N.P. with hematuria Hospitalists I10 Essential (primary) hypertension E78.5 Hyperlipidemia, unspecified M54.41 Lumbago with sciatica, right side Office Visit 06/08/2015 12:58p [facility] N30.01 Acute cystitis Assoc,kennedy Stroud N.PYessy with hematuria Hospitalists I10 Essential (primary) hypertension E78.5 Hyperlipidemia, unspecified M54.41 Lumbago with sciatica, right side Office Visit 04/27/2015 11:45a Pulmonology And Raiza R06.02 Shortness of Sleep Services Of MD Teresa breath Erecting Engineer Z95.810 Presence of automatic (implantable) cardiac defibrillator Office Visit 01/11/2015 [facility] Alexx Dowell 425.9 Cardiomyopathy 9:00a Cardiology Tamiko Clinton Secondary Unspecified 427.1 Paroxysmal Ventricular Tachycardia 786.09 Dyspnea & Respiratory Abnormalities Other 272.0 Hypercholesterolemia Pure 424.0 Mitral Valve Disorder Office Visit 08/19/2014 8:30a [facility] Emily Lora, 786.09 Dyspnea & PA Respiratory Abnormalities Other 425.9 Cardiomyopathy Secondary Unspecified V45.02 Cardiac Defibrillator Automatic Implantable Postsurgical 272.0 Hypercholesterolemia Pure Office Visit 08/11/2014 Pulmonology And Raiza 786.09 Dyspnea & 8:15a Sleep Services Of MD Teresa Respiratory Erecting Engineer Abnormalities Other Office Visit 07/26/2014 [facility] Alexx Dowell 135 Sarcoidosis 8:40a Tamiko Clinton 427.1 Paroxysmal Ventricular Tachycardia V45.02 Cardiac Defibrillator Automatic Implantable Postsurgical 425.9 Cardiomyopathy Secondary Unspecified Office Visit 05/13/2014 8:45a Pulmonology And Raiza 508.8 Respiratory Sleep Services Of MD Teresa Conditions Due To Erecting Engineer Other Spec External Agent 513.0 Abscess Lung 427.69 Premature Beats Other Office Visit 04/09/2014 3:00p [facility] Alexx Dowell 427.1 Paroxysmal Tamiko Clinton Ventricular Tachycardia 135 Sarcoidosis Office Visit 03/19/2014 10:14a [facility] Prachi Bella 427.1 Paroxysmal Of Remi Morrison Ventricular Tachycardia V45.02 Cardiac Defibrillator Automatic Implantable Postsurgical Office Visit 01/25/2014 1:00p Orthopedic Maribel 715.35 Osteoarthrosis Services Of Tamiko Saleh Localpenelope Not Spec C.M.A. Prime Or 2Ndy Pelvic & Thigh 724.3 Sciatica Office Visit 01/21/2014 3:00p [facility] For Eleuterio Avila 595.0 Cystitis Acute Infectious Tamiko Xiong Diseases 595.0 Cystitis Acute Office Visit 01/11/2014 4:21p [facility] Douglas 724.5 Backache Unspec Assoc,pc Naldo N.P. Hospitalists 719.45 Pain Joint Pelvic Region & Thigh 401.9 Hypertension Unspec Office Visit 01/11/2014 Neurosurgery Terry Pino 726.5 Enthesopathy Of 2:00p Services Of Remi Rose M.D. Hip Region Office Visit 01/10/2014 [facility] [place] 724.5 Backache Unspec 4:20p Assoc,pc Naldo N.PYessy Hospitalists 719.45 Pain Joint Pelvic Region & Thigh 401.9 Hypertension Unspec Office Visit 01/08/2014 4:18p [facility] Manisha Walker 724.5 Backache Unspec Assoc,pc N.P. Hospitalists 719.45 Pain Joint Pelvic Region & Thigh 401.9 Hypertension Unspec Office Visit 09/08/2013 8:00a [facility] [place] ECHO 427.1 Paroxysmal Schedule Ventricular Tachycardia 424.1 Aortic Valve Disorder 424.0 Mitral Valve Disorder Office Visit 07/30/2013 10:40a [facility] Alexx Dowell 427.1 Paroxysmal Tamiko Clinton Ventricular Tachycardia 414.01 Coronary Atherosclerosis [place] 424.1 Aortic Valve Disorder 424.0 Mitral Valve Disorder 272.0 Hypercholesterolemia Pure Office Visit 05/21/2013 10:40a [facility] Alexx Dowell 427.1 Paroxysmal Tamiko Clinton Ventricular Tachycardia 794.31 Electrocardiogram (ECG) (EKG) Abnormal 414.01 Coronary Atherosclerosis [place] 424.1 Aortic Valve Disorder 424.0 Mitral Valve Disorder Office Visit 05/04/2013 1:20p [facility] Alexx Dowell 427.1 Paroxysmal Tamiko Clinton Ventricular Tachycardia 414.01 Coronary Atherosclerosis [place] 424.1 Aortic Valve Disorder 424.0 Mitral Valve Disorder Office Visit 04/28/2013 [facility] Rogers SYessy 414.01 Coronary 11:30a Cardiology Tamiko Thomas Atherosclerosis [place] 427.1 Paroxysmal Ventricular Tachycardia 424.1 Aortic Valve Disorder Office Visit 04/22/2013 1:30p [facility] Alexx Dowell 424.0 Mitral Valve Tamiko Clinton Disorder 424.1 Aortic Valve Disorder Office Visit 04/17/2013 11:00a [facility] Alexx Dowell 424.1 Aortic Valve Tamiko Clinton Disorder 424.0 Mitral Valve Disorder 272.0 Hypercholesterolemia Pure Office Visit 07/02/2012 11:00a [facility] Alexx Dowell 424.0 Mitral Valve Tamiko Clinton Disorder 424.1 Aortic Valve Disorder 272.0 Hypercholesterolemia Pure Office Visit 05/15/2012 3:40p [facility] Priscilla Avila 513.0 Abscess Lung Jan Xiong M.D. Diseases Office Visit 05/02/2012 8:30a [facility] Priscilla Avila 513.0 Abscess Lung Infectious Tamiko Xiong Diseases Office Visit 04/21/2012 1:40p [facility] Priscilla Avila 513.0 Abscess Lung Infectious Tamiko Xiong Diseases Office Visit 04/15/2012 10:50a [facility] Priscilla Avila 518.89 Lung Disease Infectious Tamiko Xiong Other Not Diseases Elsewhere Class 513.0 Abscess Lung Office Visit 05/02/2011 11:40a [facility] Alexx Dowell 424.0 Mitral Valve Tamiko Clinton Disorder 272.0 Hypercholesterolemia Pure 427.31 Atrial Fibrillation 785.2 Murmur Cardiac Undiagnosed Office Visit 08/28/2010 3:20p [facility] Alexx F. 424.0 Mitral Valve Mauser, M.D. Disorder 272.0 Hypercholesterolemia Pure 427.69 Premature Beats Other Office Visit 08/25/2009 9:00a [facility] Alexx F. 424.0 Mitral Valve Mauser, M.D. Disorder Office Visit 03/10/2009 2:00p [facility] Alexx F. 424.0 Mitral Valve Mauser, M.D. Disorder 272.0 Hypercholesterolemia Pure Office Visit 02/16/2009 10:30a [facility] Alexx FYessy 424.0 Mitral Valve Mauser, M.D. Disorder 272.0 Hypercholesterolemia Pure 427.31 Atrial Fibrillation 433.10 Occlusion & Stenosis Carotid Artery W/O Cerebral Infarction Office Visit 02/16/2009 10:15a [facility] [place] ECHO 424.0 Mitral Valve Schedule Disorder 272.0 Hypercholesterolemia Pure 427.31 Atrial Fibrillation Office Visit 11/23/2008 3:20p [facility] Alexx FYessy 424.0 Mitral Valve Mauser, M.D. Disorder 272.0 Hypercholesterolemia Pure Office Visit 10/09/2007 3:20p [facility] Alexx FYessy 424.0 Mitral Valve Mauser, M.D. Disorder 272.0 Hypercholesterolemia Pure Office Visit 10/02/2006 8:40a [facility] Alexx FYessy 433.10 Occlusion & Lylar M.D. 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 Fibrillation 424.0 Mitral Valve Disorder Office Visit 06/07/2005 11:00a [facility] Alexx FYessy 785.2 Murmur Cardiac Sari Clinton. Undiagnosed 424.0 Mitral Valve Disorder 433.10 Occlusion & Stenosis Carotid Artery W/O Cerebral Infarction Office Visit 01/25/2005 3:40p [facility] Alexx FYessy 424.0 Mitral Valve Tamiko Clinton Disorder 786.09 Dyspnea & Respiratory Abnormalities Other 427.69 Premature Beats Other 433.10 Occlusion & Stenosis Carotid Artery W/O Cerebral Infarction Office Visit 12/24/2002 9:40a [facility] Alexx Dowell 785.2 Murmur Cardiac Tamiko Clinton Undiagnosed 424.0 Mitral Valve Disorder Plan of Treatment Future Appointment(s):07/08/2018 3:00 pm - Alexx Clinton M.D. at [facility]09/24/2018 9:00 am - Raiza Moore MD at [facility]08/12/2018 7:40 am - Pacemaker Schedule at [facility]07/29/2018 8:00 am - Camilo Osorio M.D. at [facility]08/2018 - Denice Dowd, NPI34.2 Nonrheumatic mitral (valve) stenosisFollow up: in one month with Dr. Frausto42.9 Cardiomyopathy, [id number] Ventricular tachycardia
[2018-06-26 09:25] VITALS: BP 135/79
== END 2018-06-26 09:24 | disposition home or self-care (01) ==
LOC: ED 08:24
DX: M79.674 Pain in right toe(s) (principal); N40.0 Benign prostatic hyperplasia without lower urinary tract symptoms; Z87.891 Personal history of nicotine dependence
CPT/HCPCS: 99282